=== PATIENT | female | born 1935 | race Caucasian/White ===

== ENCOUNTER 2017-10-14 16:53 | Inpatient (IN) | payer MEDICARE, BC, SELFPAY ==
--- NOTE | 2017-10-14 17:39 | XR_ITS ---
XR chest portable HISTORY: ITS.REASON: Malignant HBP ORDERING PHYSICIAN: French Blackwell MD PATIENT AGE: 81 years COMPARISON: 12/17/2016 FINDINGS: Mild cardiomegaly without failure.. The lungs are clear without infiltrates, suspicious nodules, or pleural effusions. No acute bony abnormalities. IMPRESSION: Mild cardiomegaly otherwise negative
[2017-10-14 17:43] VITALS: PULSE 70
--- NOTE | 2017-10-14 18:00 | P.PN_ITS ---
Internal Medicine - PN: Subj *Date: 10/14/17 *Time: 18:10 Interval history: Ms. Iverson is an 81 yo WF with a hx of HBP, HLP and paroxysmal AF who is followed regularly by Dr. Walter. For past week, BP has been uncontrolled with systolic >200 and diastolic>100. SHe has been seen in the office on 2 occasions this week with adjustment in her medication and returned today after an episode of light headedness, presyncope and tingling in her face this morning. BP remains high. SHe is being admitted for treatment of malignant HBP with IV Nipride. Exam - Constitutional no acute distress - *Routine HEENT Exam Head: Present: normocephalic, atraumatic Eye: Present: EOMI, PERRL, normal accommodation ENT: Present: mucous membranes moist, oropharynx clear - *Routine Neck Exam Present: supple. Absent: carotid bruit - *Routine Respiratory Exam Present: CTA bilaterally - *Routine Cardiovascular Exam Present: RRR - *Routine Extremities Exam Absent: edema Assessment and Plan (1) Malignant hypertension Current visit: Yes Status: Acute Category: Medical Code(s): I10 - Essential (primary) hypertension (2) Hyperlipidemia Current visit: Yes Status: Acute Category: Medical Code(s): E78.5 - Hyperlipidemia, unspecified (3) Paroxysmal atrial fibrillation Current visit: Yes Status: Acute Category: Medical Code(s): I48.0 - Paroxysmal atrial fibrillation (4) Hyponatremia Current visit: Yes Status: Acute Category: Medical Code(s): E87.1 - Hypo- osmolality and hyponatremia - Assessment and plan all Dx Assessment and Plan for all problems:: Admit to Step Down unit to start Nipride drip. Check labs, CXR, EKG, Carotid US , renal artery duplex
[2017-10-14 18:01] LABS: Basophils % 0.4 % (0.1-2.0); Eosinophils # 0.5 K/mm3 (0.0-0.4); Eosinophils % 7.2 % (0.1-12.0); Hemoglobin 12.1 g/dL (12.2-16.2); Lymphocytes # 1.4 K/mm3 (0.7-4.5); Lymphocytes % 19.7 K/mm3 (10-50); Mean Corpuscular HGB Conc 33.6 g/dL (31.8-35.4); Mean Corpuscular Hemoglobin 29.2 pg (27.0-31.2); Monocytes # 0.7 K/mm3 (0.1-1.0); Neutrophils # 4.3 K/mm3 (1.8-7.8); Neutrophils % 62.8 % (37.0-80.0); Platelet Count 347 K/mm3 (142-424); Red Blood Count 4.13 M/mm3 (4.20-5.40); Red Cell Distribution Width 12.2 % (11.5-17.5); White Blood Count 6.9 K/mm3 (4.8-10.8)
[2017-10-14 18:02] VITALS: BP 220/91; PULSE 63; RESP 20; TEMP 36.8; O2SAT 96; BMI 30.3
[2017-10-14 18:16] LABS: Alanine Aminotransferase 28 U/L (12-78); Albumin Level 3.8 gm/dL (3.4-5.0); Alkaline Phosphatase 77 U/L (46-116); Anion Gap 11.3 mEq/L (5-15); Bilirubin,Total 0.3 mg/dL (0.2-1.0); Blood Urea Nitrogen 26 mg/dL (7-18); Calcium 8.8 mg/dL (8.5-10.1); Carbon Dioxide 28 mmol/L (21.0-32.0); Chloride 94 mmol/L (98-107); Creatinine Clearance Estimated 47 mL/min (0-300); Creatinine,Serum 1.09 mg/dL (0.55-1.02); Estimated Glomerular Filt Rate 48 ml/min (>60); GFR (African American) 58 ML/MIN (>60); Globulin 3.9 gm/dl (1.3-3.2); Glucose 108 mg/dL (74-106); Magnesium 1.9 mg/dL (1.4-2.2); Phosphorous 3.6 mg/dL (2.4-4.9); Sodium 129 mmol/L (136-145); Total Protein,Serum 7.7 gm/dL (6.4-8.2)
[2017-10-14 18:18] LABS: Aspartate Amino Transferase 19 U/L (15-37); Potassium 4.3 mmoL/L (3.5-5.1)
[2017-10-14 19:00] VITALS: BP 154/76; PULSE 60; RESP 16; O2SAT 94
--- NOTE | 2017-10-14 19:12 | PC.NURSE ---
nitropresside drip ordered per dr. garcía. order faxed to [facility] per lola peter. pt weight 73.8 kg. med dosage verified with gavin over the phone and again at bedside with lola peter. 50 mg of nitropresside mixed with 250 ml dextrose. titrated to keep systolic bp below 150 and diastolic below 90. pt currently going at 0.3 mcg/kg/min or 6.6 ml/hr at this time. bp 156/84 at this time. report given to sylvia peter. will scan med when available on
[2017-10-14 20:00] VITALS: BP 140/58; PULSE 56; PULSE 60; TEMP 36.7; O2SAT 96; O2SAT 98
[2017-10-14 21:32] LABS: Microscopic, Urine URINE MICROSCOPIC (MICROSCOPIC)
[2017-10-14 21:33] LABS: Appearance,Urine CLEAR (Clear); Bilirubin,Urine Negative (Negative); Blood, Urine Negative (Negative); Color,Urine YELLOW (Yellow); Glucose,Urine (UA) Negative (Negative); Ketones,Urine Negative (Negative); Leukocyte Esterase,Urine TRACE (Negative); Nitrate,Urine Negative (Negative); Protein,Urine Negative (Negative); Urobilinogen,Urine 0.2 EU/dl (0.2)
[2017-10-14 21:42] LABS: Bacteria,Urine Trace /lpf
[2017-10-14 22:00] VITALS: BP 109/50; PULSE 51; O2SAT 94
[2017-10-14 23:56] VITALS: TEMP 36.2
[2017-10-15] VITALS (11 sets, daily range): BP systolic 108–181; BP diastolic 44–72; PULSE 48–56; RESP 16–20; TEMP 36.4–36.9; O2SAT 91–98; BMI 31.0
--- NOTE | 2017-10-15 03:59 | PC.NURSE ---
PT IS A&OX3. SHE HAS BEEN USING THE CALL LIGHT TO CALL FOR ASSISTANCE. SHE RECEIVED A PRN MEDICATION FOR SLEPT PER HER REQUEST. VSS. NSR ON TELEMETRY. BRADYCARDIA WHILE SLEEPING. DENIES PAIN. DENIES SOA. SHE HAS BEEN TRANSFERRING TO THE [facility] WITH ASSIST X1.
--- NOTE | 2017-10-15 06:50 | CI_ITS ---
Cerebrovascular Exam IMPRESSIONS 1. The bilateral vertebral arteries are patent with normal antegrade flow. 2. Study suggests less than 20% stenosis involving the right internal carotid artery and the left internal carotid artery. No change from the study of 16-May-2012. History: Risk factors: Hypertension. Carotid duplex study. Complete study and Doppler flow study including spectral analysis, color and pastor scale imaging. Height: Height: 154.9cm. Height: 61in. Weight: Weight: 74.4kg. Weight: 163.7lb. Body mass index: BMI: 31kg/m^2. Body surface area: BSA: 1.82m^2. Location: Bedside. Patient status: Inpatient. Tables: Arterial flow: + +--------+--------+ Location V sys V ed + +--------+--------+ Right CCA - proximal 50.3cm/s 12.6cm/s + +--------+--------+ Right CCA - distal 73.1cm/s 14.1cm/s + +--------+--------+ Right ECA 147cm/s -------- + +--------+--------+ Right ICA - proximal 57.4cm/s 14.9cm/s + +--------+--------+ Right ICA - mid 144cm/s 26.7cm/s + +--------+--------+ Right ICA - distal 124cm/s 23.6cm/s + +--------+--------+ Right vertebral 46.4cm/s -------- + +--------+--------+ Left CCA - proximal 70.7cm/s 14.9cm/s + +--------+--------+ Left CCA - distal 72.3cm/s 14.9cm/s + +--------+--------+ Left ECA 123cm/s -------- + +--------+--------+ Left ICA - proximal 85.6cm/s 11.8cm/s + +--------+--------+ Left ICA - mid 70.7cm/s 13.4cm/s + +--------+--------+ Left ICA - distal 91.9cm/s 17.3cm/s + +--------+--------+ Left vertebral 33.8cm/s -------- + +--------+--------+ Velocity ratios: + + + + + + Right, V sys Right, V ed Left, V sys Left, V ed + + + + + + Max ICA/dist CCA 1.97 1.89 1.27 1.16 + + + + + + (Report amended ) Electronically signed by: Silverio Bruner [id number]
--- NOTE | 2017-10-15 07:16 | PC.NURSE ---
REPORT GIVEN TO Clayton SIMS W/C
--- NOTE | 2017-10-15 07:51 | HMH.HP ---
*Admission Date: 10/14/17 <Kalie Conrad 10/15/17 08:24> *Chief complaint: HTN <Kalie Conrad 10/15/17 08:24> *History of present illness: Ms. Iverson is an 81 yo WF with a hx of HBP, HLP and paroxysmal AF who is followed regularly by Dr. Walter. For the past week, her BP has been uncontrolled with systolic >200 and diastolic>100. She has been seen in the office on 2 occasions this week with adjustment in her medication and returned yesterday after an episode of light headedness, presyncope and tingling in her face. Her BP remained high. She was admitted for treatment of malignant HBP with IV Nipride. <Kalie Conrad 10/15/17 08:24> [facility] History Medical History: Reports:: Atrial Fibrillation, Hyperlipidemia, Hypertension Denies:: Cancer, Coronary Artery Disease, Cerebrovascular Accident, Diabetes Mellitus Type 1, Diabetes Mellitus Type 2, MRSA <Kalie Conrad 10/15/17 08:24> Other Medical History: Reports: Anemia, Arthritis, Sinus Problems <Kalie Conrad 10/15/17 08:24> Other Surgeries: Yes: Cardiac Catheterization, Colonoscopy, EGD <Kalie Conrad 10/15/17 08:24> Amputation: No <Kalie Conrad 10/15/17 08:24> Comment: Cholecystectomy <Kalie Conrad 10/15/17 08:24> - *Social History Educational Level: Attended High School <Kalie Conrad 10/15/17 08:24> Smoking Status: Former smoker <Kalie Conrad 10/15/17 08:24> Alcohol Intake: current <Kalie Conrad 10/15/17 08:24> Alcohol Intake Frequency:: a few times a week <Kalie Conrad 10/15/17 08:24> Occupational Status: retired <Kalie Conrad 10/15/17 08:24> Household Members: none <Kalie Conrad 10/15/17 08:24> - Psychiatric History Expresses thoughts of harming self/others: None <Kalie Conrad 10/15/17 08:24> Suicide Plan Description: No Plan <Kalie Conrad - 10/15/17 08:24> *Family Hx:: Heart Attack, Hyperlipidemia <Kalie Conrad 10/15/17 08:24> Review of Systems - Constitutional Reports weakness, Denies chills, Denies fatigue, Denies fever(s) <AnamariaKalie 10/15/17 08:24> - Eyes Denies blurry vision, Denies double vision <CelsoconchitaKalie 10/15/17 08:24> - ENT Denies nasal congestion, Denies sore throat <CelsoconchitaKalie 10/15/17 08:24> - *Cardiovascular Denies chest pain, Denies irregular heart rhythm, Denies leg swelling <CelsoconchitaKalie 10/15/17 08:24> - *Respiratory Denies chest congestion, Denies shortness of breath <CelsoconchitaKalie 10/15/17 08:24> - *Gastrointestinal Denies abdominal pain, Denies nausea, Denies vomiting <CelsoconchitaKalie 10/15/17 08:24> - *Genitourinary Denies difficulty urinating, Denies painful urination <CelsoconchitaKalie 10/15/17 08:24> - *Musculoskeletal Denies joint pain, Denies body aches <CelsoconchitaKalie 10/15/17 08:24> - *Neurologic Reports headache(s), Reports dizziness (yesterday, has resolved today), Reports weakness <CelsoconchitaKalie 10/15/17 08:24> Meds Home Medications Medication Instructions Recorded Confirmed Type Atorvastatin Calcium [Atorvastatin 10 mg PO DAILY 10/14/17 10/14/17 History 10mg Tab] Calcium Carbonate/Vitamin D3 1 each PO DAILY 10/14/17 10/14/17 History [Calcium 600 + Vit D 400 Softgl] Carvedilol [Carvedilol 12.5mg Tab] 12.5 mg PO BID 10/14/17 10/14/17 History Cefdinir [Omnicef 300mg Capsule] 300 mg PO BID 10/14/17 10/14/17 History Cholecalciferol (Vitamin D3) 1,000 unit PO DAILY 10/14/17 10/14/17 History [Vitamin D3 1,000 Unit Cap] Flecainide Acetate 100 mg PO BID 10/14/17 10/14/17 History Lansoprazole 30 mg PO DAILY 10/14/17 10/14/17 History Lisinopril [Lisinopril 20mg Tab] 20 mg PO BID 10/14/17 10/14/17 History Multivitamin [Multivitamins] 1 each PO DAILY 10/14/17 10/14/17 History [place]-3S/Dha/Epa/Fish Oil [Fish 1 each PO BID 10/14/17 10/14/17 History Oil 1,200 mg Softgel] Rivaroxaban [Xarelto] 20 mg PO DAILY 10/14/17 10/14/17 History cloNIDine HCl [cloNIDine 0.2mg 0.2 mg PO BID 10/14/17 10/14/17 History Tablet] hydrO
--- NOTE | 2017-10-15 08:05 | P.HP_ITS ---
*Admission Date: 10/14/17 <Kalie Conrad 10/15/17 08:24> *Chief complaint: HTN <Kalie Conrad 10/15/17 08:24> *History of present illness: Ms. Iverson is an 81 yo WF with a hx of HBP, HLP and paroxysmal AF who is followed regularly by Dr. Walter. For the past week, her BP has been uncontrolled with systolic >200 and diastolic>100. She has been seen in the office on 2 occasions this week with adjustment in her medication and returned yesterday after an episode of light headedness, presyncope and tingling in her face. Her BP remained high. She was admitted for treatment of malignant HBP with IV Nipride. <Kalie Conrad 10/15/17 08:24> [facility] History Medical History: Reports:: Atrial Fibrillation, Hyperlipidemia, Hypertension Denies:: Cancer, Coronary Artery Disease, Cerebrovascular Accident, Diabetes Mellitus Type 1, Diabetes Mellitus Type 2, MRSA <Kalie Conrad 10/15/17 08: 24> Other Medical History: Reports: Anemia, Arthritis, Sinus Problems <Kalie Conrad 10/15/17 08:24> Other Surgeries: Yes: Cardiac Catheterization, Colonoscopy, EGD <Kalie Conrad 10/15/17 08:24> Amputation: No <Kalie Conrad 10/15/17 08:24> Comment: Cholecystectomy <Kalie Conrad 10/15/17 08:24> - *Social History Educational Level: Attended High School <Kalie Conrad 10/15/17 08:24> Smoking Status: Former smoker <Kalie Conrad 10/15/17 08:24> Alcohol Intake: current <Kalie Conrad 10/15/17 08:24> Alcohol Intake Frequency:: a few times a week <Kalie Conrad 10/15/17 08:24> Occupational Status: retired <Kalie Conrad 10/15/17 08:24> Household Members: none <Kalie Conrad 10/15/17 08:24> - Psychiatric History Expresses thoughts of harming self/others: None <Kalie Conrad 10/15/17 08: 24> Suicide Plan Description: No Plan <Kalie Conrad - 10/15/17 08:24> *Family Hx:: Heart Attack, Hyperlipidemia <Kalie Conrad 10/15/17 08:24> Review of Systems - Constitutional Reports weakness, Denies chills, Denies fatigue, Denies fever(s) <Anamaria Kalie 10/15/17 08:24> - Eyes Denies blurry vision, Denies double vision <CelsoconchitaKalie 10/15/17 08:24> - ENT Denies nasal congestion, Denies sore throat <CelsoconchitaKalie 10/15/17 08:24> - *Cardiovascular Denies chest pain, Denies irregular heart rhythm, Denies leg swelling <Celsoconchita Kalie 10/15/17 08:24> - *Respiratory Denies chest congestion, Denies shortness of breath <CelsoconchitaKalie 10/15/17 08:24> - *Gastrointestinal Denies abdominal pain, Denies nausea, Denies vomiting <CelsoconchitaKalie 08:24> - *Genitourinary Denies difficulty urinating, Denies painful urination <CelsoconchitaKalie 08:24> - *Musculoskeletal Denies joint pain, Denies body aches <CelsoconchitaKalie 10/15/17 08:24> - *Neurologic Reports headache(s), Reports dizziness (yesterday, has resolved today), Reports weakness <CelsoconchitaKalie 10/15/17 08:24> Meds Home Medications Medication Instructions Recorded Confirmed Type Atorvastatin Calcium [Atorvastatin 10 mg PO DAILY 10/14/17 10/14/17 History 10mg Tab] Calcium Carbonate/Vitamin D3 1 each PO DAILY 10/14/17 10/14/17 History [Calcium 600 + Vit D 400 Softgl] Carvedilol [Carvedilol 12.5mg Tab] 12.5 mg PO BID 10/14/17 10/14/17 History Cefdinir [Omnicef 300mg Capsule] 300 mg PO BID 10/14/17 10/14/17 History Cholecalciferol (Vitamin D3) 1,000 unit PO DAILY 10/14/17 10/14/17 History [Vitamin D3 1,000 Unit Cap] Flecainide Acetate 100 mg PO BID 10/14/17 10/14/17 History Lansoprazole 30 mg PO DAILY
--- NOTE | 2017-10-15 08:54 | HMH.PHAVTE ---
[facility] Pharmacy VTE Monitoring - Patient Demographics Admission date: 10/14/17 Report Date: 10/15/17 Time: 08:54 Allergies/Adverse Reactions: Patient Allergies Penicillins Allergy (Intermediate, Verified 10/14/17 18:18) I-RASH codeine Allergy (Mild, Verified 10/14/17 18:18) NA-NAUSEA/VOMITING simvastatin Adverse Reaction (Verified 10/15/17 08:11) Joint Pain Height: 1.55 m Weight: 74.644 kg Patient Problems: Current Active Problems Malignant hypertension (Acute) Hyperlipidemia (Acute) Paroxysmal atrial fibrillation (Acute) Hyponatremia (Acute) - VTE Risk Labs: VTE Related Lab Results Hgb 12.1 g/dL (12.2-16.2) L 10/14/17 17:36 Hct 36.0 % (37.0-47.0) L 10/14/17 17:36 Plt Count 347 K/mm3 (142-424) 10/14/17 17:36 BUN 26 mg/dL (7-18) H 10/14/17 17:36 Creatinine 1.09 mg/dL (0.55-1.02) H 10/14/17 17:36 Estimated Creat Clear 47 mL/min (0-300) 10/14/17 17:36 Was VTE Risk Assessment Performed: Yes VTE Score: 2 VTE Risk Level: Very Low Risk - Prophylaxis VTE Prophylaxis Ordered?: Yes Types of VTE Prophylaxis: TEDS Knee High Location of Applied Device: Bilateral Lower Extremeties Pharmacologic Type: Other (XARELTO) - VTE Diagnosis Confirmed Treatment or plan recommended: Continue Current Treatment
--- NOTE | 2017-10-15 19:28 | PC.NURSE ---
clarified with primary rn sho james, phone conversation with dr loredo office at 1030 this am, pt was off of drip at 0830. communication order entered
[2017-10-16] VITALS (8 sets, daily range): BP systolic 95–156; BP diastolic 35–63; PULSE 45–58; RESP 18–20; TEMP 36.2–36.8; O2SAT 96–100
[2017-10-16 06:10] LABS: Basophils % 0.5 % (0.1-2.0); Eosinophils # 0.8 K/mm3 (0.0-0.4); Eosinophils % 13.1 % (0.1-12.0); Hematocrit 35.9 % (37.0-47.0); Hemoglobin 11.9 g/dL (12.2-16.2); Lymphocytes # 1.3 K/mm3 (0.7-4.5); Lymphocytes % 21.2 K/mm3 (10-50); Mean Corpuscular HGB Conc 33.2 g/dL (31.8-35.4); Mean Corpuscular Hemoglobin 28.7 pg (27.0-31.2); Mean Corpuscular Volume 86.5 fl (81-99); Mean Platelet Volume 6.6 fl (7.4-10.4); Monocytes # 0.6 K/mm3 (0.1-1.0); Monocytes % 10.3 % (1.7-9.3); Neutrophils # 3.2 K/mm3 (1.8-7.8); Neutrophils % 54.9 % (37.0-80.0); Platelet Count 308 K/mm3 (142-424); Red Blood Count 4.14 M/mm3 (4.20-5.40); Red Cell Distribution Width 12.1 % (11.5-17.5); White Blood Count 5.9 K/mm3 (4.8-10.8)
[2017-10-16 06:15] LABS: Alanine Aminotransferase 26 U/L (12-78); Albumin Level 3.4 gm/dL (3.4-5.0); Aspartate Amino Transferase 14 U/L (15-37); Bilirubin,Total 0.4 mg/dL (0.2-1.0); Blood Urea Nitrogen 17 mg/dL (7-18); Calcium 8.7 mg/dL (8.5-10.1); Carbon Dioxide 30 mmol/L (21.0-32.0); Chloride 96 mmol/L (98-107); Creatinine Clearance Estimated 53 mL/min (0-300); Creatinine,Serum 0.91 mg/dL (0.55-1.02); Estimated Glomerular Filt Rate 59 ml/min (>60); GFR (African American) 72 ML/MIN (>60); Glucose 118 mg/dL (74-106); Sodium 130 mmol/L (136-145); Total Protein,Serum 6.9 gm/dL (6.4-8.2)
[2017-10-16 06:16] LABS: Alkaline Phosphatase 70 U/L (46-116); Globulin 3.5 gm/dl (1.3-3.2)
--- NOTE | 2017-10-16 08:49 | HMH.ACPN2 ---
Internal Medicine - PN: Subj *Date: 10/16/17 *Time: 08:49 Interval history: Was up in room most of the day yesterday. Noted with elevated BP yesterday afternoon and meds adjusted. Did not sleep as well. Up to bathroom. Had dull headache. No complaints this AM. Exam Vital signs and Labs for Last 24 Hours: Temp Pulse Resp BP Pulse Ox 98.0 F 54 L 20 149/61 97 10/16/17 07:34 10/16/17 07:34 10/16/17 07:34 10/16/17 07:34 10/16/17 07:34 Laboratory Results - last 24 hr 10/16/17 05:40: WBC 5.9, RBC 4.14 L, Hgb 11.9 L, Hct 35.9 L, MCV 86.5, MCH 28.7, MCHC 33.2, RDW 12.1, Plt Count 308, MPV 6.6 L, Neut % (Auto) 54.9, Lymph % (Auto) 21.2, Andrews % (Auto) 10.3 H, Eos % (Auto) 13.1 H, Baso % (Auto) 0.5, Neut # (Auto) 3.2, Lymph # (Auto) 1.3, Andrews # (Auto) 0.6, Eos # (Auto) 0.8 H, Baso # (Auto) 0.0 10/16/17 05:40: Sodium 130 L, Potassium 4.0, Chloride 96 L, Carbon Dioxide 30, Anion Gap 8.0, BUN 17 D, Creatinine 0.91, Estimated Creat Clear 53, Estimated GFR 59, Est GFR ( Amer) 72 D, Glucose 118 H, Calcium 8.7, Total Bilirubin 0.4, AST 14 L D, ALT 26, Alkaline Phosphatase 70, Total Protein 6.9, Albumin 3.4, Globulin 3.5 H, Albumin/Globulin Ratio 1.0 L I & O for Last 24 hours: Intake & Output 10/13/17 10/14/17 10/15/17 10/16/17 11:59 11:59 11:59 11:59 Intake Total 514 / 514 240 / 240 Output Total 750 / 750 Balance -236 / -236 240 / 240 Weight 164 lb 9 oz 164 lb 8.989 oz - Constitutional no acute distress - *Routine Respiratory Exam Present: CTA bilaterally - *Routine Cardiovascular Exam Present: RRR - *Routine Extremities Exam Absent: edema Assessment and Plan (1) Malignant hypertension Current visit: Yes Status: Acute Category: Medical Code(s): I10 - Essential (primary) hypertension (2) Hyperlipidemia Current visit: Yes Status: Acute Category: Medical Code(s): E78.5 - Hyperlipidemia, unspecified (3) Paroxysmal atrial fibrillation Current visit: Yes Status: Acute Category: Medical Code(s): I48.0 - Paroxysmal atrial fibrillation (4) Hyponatremia Current visit: Yes Status: Acute Category: Medical Code(s): E87.1 - Hypo-osmolality and hyponatremia (5) Hypothyroidism Current visit: Yes Status: Acute Category: Medical Code(s): E03.9 - Hypothyroidism, unspecified - Assessment and plan all Dx Assessment and Plan for all problems:: BP improved over night. Will monitor today and see how she does with activity today.
--- NOTE | 2017-10-16 08:52 | P.PN_ITS ---
Internal Medicine - PN: Subj *Date: 10/16/17 *Time: 08:49 Interval history: Was up in room most of the day yesterday. Noted with elevated BP yesterday afternoon and meds adjusted. Did not sleep as well. Up to bathroom. Had dull headache. No complaints this AM. Exam Vital signs and Labs for Last 24 Hours: Temp Pulse Resp BP Pulse Ox 98.0 F 54 L 20 149/61 97 10/16/17 07:34 10/16/17 07:34 10/16/17 07:34 10/16/17 07:34 10/16/17 07:34 Laboratory Results - last 24 hr 10/16/17 05:40: WBC 5.9, RBC 4.14 L, Hgb 11.9 L, Hct 35.9 L, MCV 86.5, MCH 28.7 , MCHC 33.2, RDW 12.1, Plt Count 308, MPV 6.6 L, Neut % (Auto) 54.9, Lymph % ( Auto) 21.2, [place] % (Auto) 10.3 H, Eos % (Auto) 13.1 H, Baso % (Auto) 0.5, Neut # (Auto) 3.2, Lymph # (Auto) 1.3, [place] # (Auto) 0.6, Eos # (Auto) 0.8 H, Baso # (Auto) 0.0 10/16/17 05:40: Sodium 130 L, Potassium 4.0, Chloride 96 L, Carbon Dioxide 30, Anion Gap 8.0, BUN 17 D, Creatinine 0.91, Estimated Creat Clear 53, Estimated GFR 59, Est GFR ( Amer) 72 D, Glucose 118 H, Calcium 8.7, Total Bilirubin 0.4, AST 14 L D, ALT 26, Alkaline Phosphatase 70, Total Protein 6.9, Albumin 3.4, Globulin 3.5 H, Albumin/Globulin Ratio 1.0 L I & O for Last 24 hours: Intake & Output 10/13/17 10/14/17 10/15/17 10/16/17 11:59 11:59 11:59 11:59 Intake Total 514 / 514 240 / 240 Output Total 750 / 750 Balance -236 / -236 240 / 240 Weight 164 lb 9 oz 164 lb 8.989 oz - Constitutional no acute distress - *Routine Respiratory Exam Present: CTA bilaterally - *Routine Cardiovascular Exam Present: RRR - *Routine Extremities Exam Absent: edema Assessment and Plan (1) Malignant hypertension Current visit: Yes Status: Acute Category: Medical Code(s): I10 - Essential (primary) hypertension (2) Hyperlipidemia Current visit: Yes Status: Acute Category: Medical Code(s): E78.5 - Hyperlipidemia, unspecified (3) Paroxysmal atrial fibrillation Current visit: Yes Status: Acute Category: Medical Code(s): I48.0 - Paroxysmal atrial fibrillation (4) Hyponatremia Current visit: Yes Status: Acute Category: Medical Code(s): E87.1 - Hypo- osmolality and hyponatremia (5) Hypothyroidism Current visit: Yes Status: Acute Category: Medical Code(s): E03.9 - Hypothyroidism, unspecified - Assessment and plan all Dx Assessment and Plan for all problems:: BP improved over night. Will monitor today and see how she does with activity today.
[2017-10-17] VITALS (11 sets, daily range): BP systolic 98–198; BP diastolic 44–80; PULSE 40–60; RESP 18–20; TEMP 36.4–37.1; O2SAT 97–99
--- NOTE | 2017-10-17 04:34 | PC.NURSE ---
PT WALKED HALLWAY ON EVENING SHIFT WITH DAUGHTER AT SIDE. STEADY GAIT NOTED. PT RECEIVED SLEEP AID PER REQUEST. PT HAS SLEPT. PRIOR TO BEDTIME PT STATED SHE FELT ODD WHEN GETTING UP TO BATHROOM. B/P AND HR CHECKED AT THAT TIME WITH NO SIGNIFICANT CHANGE NOTED. PT HAS BEEN SINUS RIGOBERTO ON TELEMETRY.
--- NOTE | 2017-10-17 05:38 | PC.NURSE ---
DR. AQUINO NOTIFIED OF B/P 198/80 RIGHT ARM GABY AND 190/80 LEFT ARM GABY. ORDERS TO GIVE 0900 CLONIDINE AND HYDRALAZINE EARLY(NOW). WILL CONTINUE TO MONITOR.
--- NOTE | 2017-10-17 08:51 | P.PN_ITS ---
Internal Medicine - PN: Subj *Date: 10/17/17 *Time: 11:35 Interval history: Walked in [place] yesterday and did well. Did not sleep well and felt anxious through the night. BP was elevated all night. Noted with bradycardia. No chest pain or dizziness. Exam Vital signs and Labs for Last 24 Hours: Temp Pulse Resp BP Pulse Ox 98.2 F 50 L 20 159/76 97 10/17/17 07:56 10/17/17 07:56 10/17/17 07:56 10/17/17 07:56 10/17/17 07:56 I & O for Last 24 hours: Intake & Output 10/14/17 10/15/17 10/16/17 10/17/17 11:59 11:59 11:59 11:59 Intake Total 514 / 514 240 / 240 1440 / 1440 Output Total 750 / 750 900 / 900 Balance -236 / -236 240 / 240 540 / 540 Weight 164 lb 9 oz 164 lb 8.989 oz - Constitutional no acute distress Comments: alert and oriented - *Routine Respiratory Exam Present: CTA bilaterally - *Routine Cardiovascular Exam Present: RRR - *Routine Extremities Exam Absent: edema Assessment and Plan (1) Malignant hypertension Current visit: Yes Status: Acute Category: Medical Code(s): I10 - Essential (primary) hypertension (2) Hyperlipidemia Current visit: Yes Status: Acute Category: Medical Code(s): E78.5 - Hyperlipidemia, unspecified (3) Paroxysmal atrial fibrillation Current visit: Yes Status: Acute Category: Medical Code(s): I48.0 - Paroxysmal atrial fibrillation (4) Hyponatremia Current visit: Yes Status: Acute Category: Medical Code(s): E87.1 - Hypo- osmolality and hyponatremia (5) Hypothyroidism Current visit: Yes Status: Acute Category: Medical Code(s): E03.9 - Hypothyroidism, unspecified (6) Bradycardia Current visit: Yes Status: Acute Category: Medical Code(s): R00.1 - Bradycardia, unspecified - Assessment and plan all Dx Assessment and Plan for all problems:: Decreased Coreg and add Norvasc
--- NOTE | 2017-10-17 13:11 | PC.NURSE ---
PATIENT 1300 DOSE OF CLONIDINE AND HYDRALAZINE WERE HELD FOR SYSTOLIC BP <100
--- NOTE | 2017-10-17 18:04 | PC.NURSE ---
PATIENT HAS BEEN RESTING IN THE CHAIR T/O SHIFT. SHE HAS HAD FAMILY AT BEDSIDE ENTIRE SHIFT. PATIENT HAS BEEN WALKING AROUND THE HALLS SEVERAL TIMES T/O DAY INDEPENDENTLY. PATIENTS BP DROPPED AT LUNCH TIME TO 98 SYSTOLIC. I HELD HER CLONIDINE AND HYDRALAZINE WHICH SHE WILL GET AGAIN AROUND 1999. PATIENT HAS 2 IVS WHICH WERE LEFT IN TODAY THEY ARE PATENT AND SHOW NO SIGNS OF INFILTRATE. LUNGS ARE DIMINISHED T/O. DENIES PAIN T/O SHIFT. A&OX3. CALL LIGHT WITHIN REACH WILL CONTINUE TO MONITOR
--- NOTE | 2017-10-17 19:13 | PC.NURSE ---
REPORT GIVEN TO NERY SHARP RN
[2017-10-18] VITALS (17 sets, daily range): BP systolic 125–242; BP diastolic 57–100; PULSE 50–70; RESP 16–20; TEMP 36.4–36.8; O2SAT 97–99
--- NOTE | 2017-10-18 01:11 | PC.NURSE ---
AT [address] AQUINO B/P RA 194/83, AND 200/78 LA. REPORTED B/P READINGS THROUGHOUT DAY AND ALL B/P MEDS GIVEN AT 2030 TONIGHT. NO NEW ORDERS AT THIS TIME. WILL CONTINUE TO MONITOR.
--- NOTE | 2017-10-18 04:49 | PC.NURSE ---
PT HAS SLEPT INTERMITTENTLY TONIGHT. DTR AT BEDSIDE. B/P ELEVATED AT MIDNGHT AND MD NOTIFED. NO NEW ORDERS. PT WITHOUT COMPLAINTS AT THIS TIME.
--- NOTE | 2017-10-18 07:47 | PC.NURSE ---
Report received from Марина Dubois RN
--- NOTE | 2017-10-18 08:07 | HMH.ACPN2 ---
<Kayla Gama - Last Filed: 10/18/17 08:07> Internal Medicine - PN: Subj *Date: 10/18/17 *Time: 08:07 Interval history: Patient states she slept better last night. Denies chest pain, shortness of breath, dizziness and heart palpitations. She has been ambulating without difficulty. She is eating as usual without problems. Blood pressure has fluctuated and medicine actually had to be held at noon yesterday (98/44). Systolic blood pressure during the night was 212/89, 192/73 Exam Vital signs and Labs for Last 24 Hours: Temp Pulse Resp BP Pulse Ox 97.8 F 63 18 192/73 98 10/18/17 04:00 10/18/17 04:00 10/18/17 04:00 10/18/17 05:43 10/18/17 04:00 I & O for Last 24 hours: Intake & Output 10/15/17 10/16/17 10/17/17 10/18/17 11:59 11:59 11:59 11:59 Intake Total 514 / 514 240 / 240 1440 / 1440 10 / 10 Output Total 750 / 750 900 / 900 1200 / 1200 Balance -236 / -236 240 / 240 540 / 540 -1190 / -1190 Weight 164 lb 9 oz 164 lb 8.989 oz - Constitutional no acute distress - *Routine Respiratory Exam Comments: few fine crackles in the left base. - *Routine Cardiovascular Exam Present: RRR Comments: Monitor showing sinus bradycardia in the 50s with occasional PAC - *Routine Abdominal Exam Present: soft, normoactive bowel sounds. Absent: tenderness - *Routine Extremities Exam Absent: edema, calf tenderness - *Routine Neurological Exam Present: alert, oriented X3 Assessment and Plan (1) Malignant hypertension Current visit: Yes Status: Acute Category: Medical Code(s): I10 - Essential (primary) hypertension (2) Hyperlipidemia Current visit: Yes Status: Acute Category: Medical Code(s): E78.5 - Hyperlipidemia, unspecified (3) Paroxysmal atrial fibrillation Current visit: Yes Status: Acute Category: Medical Code(s): I48.0 - Paroxysmal atrial fibrillation (4) Hyponatremia Current visit: Yes Status: Acute Category: Medical Code(s): E87.1 - Hypo-osmolality and hyponatremia (5) Hypothyroidism Current visit: Yes Status: Acute Category: Medical Code(s): E03.9 - Hypothyroidism, unspecified (6) Bradycardia Current visit: Yes Status: Acute Category: Medical Code(s): R00.1 - Bradycardia, unspecified - Assessment and plan all Dx Assessment and Plan for all problems:: As per Dr. Blackwell <French Blackwell - Last Filed: 10/19/17 08:56> Internal Medicine - PN: Subj *Date: 10/19/17 *Time: 08:56 Exam Vital signs and Labs for Last 24 Hours: Temp Pulse Resp BP Pulse Ox 98.2 F 51 L 20 125/62 98 10/19/17 07:27 10/19/17 07:27 10/19/17 07:27 10/19/17 07:27 10/19/17 07:27 I & O for Last 24 hours: Intake & Output 10/16/17 10/17/17 10/18/17 10/19/17 11:59 11:59 11:59 11:59 Intake Total 240 / 240 1440 / 1440 370 / 370 960 / 960 Output Total 900 / 900 1200 / 1200 2600 / 2600 Balance 240 / 240 540 / 540 -830 / -830 -1640 / -1640 Weight 164 lb 8.989 oz Assessment and Plan (1) Malignant hypertension Current visit: Yes Status: Acute Category: Medical Code(s): I10 - Essential (primary) hypertension (2) Hyperlipidemia Current visit: Yes Status: Acute Category: Medical Code(s): E78.5 - Hyperlipidemia, unspecified (3) Paroxysmal atrial fibrillation Current visit: Yes Status: Acute Category: Medical Code(s): I48.0 - Paroxysmal atrial fibrillation (4) Hyponatremia Current visit: Yes Status: Acute Category: Medical Code(s): E87.1 - Hypo-osmolality and hyponatremia (5) Hypothyroidism Current visit: Yes Status: Acute Category: Medical Code(s): E03.9 - Hypothyroidism, unspecified (6) Bradycardia Current visit: Yes Status: Acute Category: Medical Code(s): R00.1 - Bradycardia, unspecified - Assessment and plan all Dx Assessment and Plan for all problems:: Will continue to adjust medications.
--- NOTE | 2017-10-18 09:10 | CA_ITS ---
PROCEDURE: 2-D M-mode and color Doppler study INDICATIONS FOR THE TEST: Chest pain COPD Heart Murmur+ Tobacco Smokingex Palpitations Fatigue Syncope Edema Hypertension+Diabetes Mellitus Rheumatic Fever SOB AVERY Obesity Hyperlipidemia+ Family History HD Additional History PATIENT INFORMATION HEIGHT:61 WEIGHT: 165 GENDER: Female B/P: 192/73 2-D/M-MODE INTERPRETATION: 2-D MEASUREMENTS OBSERVED VALUES IN CMS Right Ventricular Dimension (RVDd) 2.6 Interventricular Septum (Thickness)(IVsd) 0.8 Left Ventricular Internal Dimensions(LVIDd) 5.2 Left Ventricular Posterior Wall (Thickness)(LVPWd) 0.8 Aortic Root 2.7 Aortic Cusp Separation 2.0 Left Atrial Dimensions (LAD) 4.4 2D 1. Left atrium is mildly enlarged, left ventricle is normal size, there is mild qualitative concentric left ventricular hypertrophy, visually estimated ejection fraction 55% with no obvious regional wall motion abnormality. 2. The right atrium is normal size, right ventricle is mildly enlarged with normal contractility. 3. The aortic valve is minimally thickened and fibrosed. 4. The mitral and tricuspid valve leaflets are minimally thickened. 5. The pulmonic valve is poorly visualized. 6. No significant pericardial effusion noted. DOPPLER INTERROGATION: Doppler interrogation of the aortic, mitral and tricuspid valvular presence of trace aortic, mild mitral and tricuspid regurgitation, tricuspid regurgitant jet velocity is insufficient for calculation of the right ventricular systolic pressure, grade 1 diastolic dysfunction seen with tissue Doppler evidence of raised left atrial pressure. CONCLUSION: 1. Mildly enlarged left atrium, normal left ventricular size, mild qualitative concentric left ventricular hypertrophy, visually estimated ejection fraction of 55% with no obvious regional wall motion abnormality, grade 1 diastolic dysfunction seen with tissue Doppler evidence of raised left atrial pressure. 2. Trace aortic, mild mitral and tricuspid regurgitation 3. No significant pericardial effusion noted.
--- NOTE | 2017-10-18 14:41 | PC.NURSE ---
INTERDISCIPLINARY CARE CONFERENCE COMPLETED WITH PATIENT, NURSING, PHARMACY, DIETARY, AND CASE MANAGEMENT
--- NOTE | 2017-10-18 16:19 | DIET.NUTRFU ---
Pt is trying to follow recommendations of selecting high potassium foods. She is eating baked potatoes. PO intakes avg 75-100%. Orders for daily weights but no weights obtained in past 3 days. Nursing notified. Pt is hard of hearing, dietary notified as well. Pt has not been sleeping well.
--- NOTE | 2017-10-18 17:06 | PC.NURSE ---
Pt A&Ox3 in NAD. Pt's SBP has not peaked over 170's /p 0900 meds. Heart rate continues to be in upper 50's. Lungs CTA and diminished. Heart rate reg. Abd soft, non-tender /c active BS x4 quads. (R) FA saline locked; flushes easily. Pt has ambulated within room with 1 person assist this shift. Pt denies c/o pain or discomfort. Refuses Eb hose to BLE. Will continue to monitor.
--- NOTE | 2017-10-18 19:02 | PC.NURSE ---
Report given to Quinten Lund RN
--- NOTE | 2017-10-18 23:31 | PC.NURSE ---
Addendum entered by Nadege Sarmiento CNA 10/19/17 07:46: NURSE NOTIFIED OF PTS ELEVATED BP NOT TEMP Original Note: nurse notified of pts temp
[2017-10-19] VITALS (12 sets, daily range): BP systolic 113–163; BP diastolic 44–72; PULSE 40–60; RESP 16–20; TEMP 36.4–36.8; O2SAT 96–98
--- NOTE | 2017-10-19 05:55 | PC.NURSE ---
Patient resting in bed with family at bedside. No sign or symptom of distress noted at this time. No complaints voiced. Up ad shahrzad in room Denies any pain or discomfort at this time.
--- NOTE | 2017-10-19 07:38 | PC.NURSE ---
REPORT GIVEN TO Марина CHANG W/C
--- NOTE | 2017-10-19 08:34 | HMH.ACPN2 ---
<Kayla Gama - Last Filed: 10/19/17 08:34> Internal Medicine - PN: Subj *Date: 10/19/17 *Time: 08:34 Interval history: Patient feels better this a.m. She slept better last night. She states blood pressure has been more stable. She is eating better. She has been ambulating without difficulty. She denies chest pain, shortness of breath, and palpitations. Exam Vital signs and Labs for Last 24 Hours: Temp Pulse Resp BP Pulse Ox 98.2 F 51 L 20 125/62 98 10/19/17 07:27 10/19/17 07:27 10/19/17 07:27 10/19/17 07:27 10/19/17 07:27 I & O for Last 24 hours: Intake & Output 10/16/17 10/17/17 10/18/17 10/19/17 11:59 11:59 11:59 11:59 Intake Total 240 / 240 1440 / 1440 370 / 370 960 / 960 Output Total 900 / 900 1200 / 1200 2600 / 2600 Balance 240 / 240 540 / 540 -830 / -830 -1640 / -1640 Weight 164 lb 8.989 oz Radiology Reports for the Last 24 Hours: Echocardiogram 10/18/2017 CONCLUSION: 1. Mildly enlarged left atrium, normal left ventricular size, mild qualitative concentric left ventricular hypertrophy, visually estimated ejection fraction of 55% with no obvious regional wall motion abnormality, grade 1 diastolic dysfunction seen with tissue Doppler evidence of raised left atrial pressure. 2. Trace aortic, mild mitral and tricuspid regurgitation 3. No significant pericardial effusion noted. - Constitutional no acute distress - *Routine Respiratory Exam Present: CTA bilaterally (Anteriorly and posteriorly) - *Routine Cardiovascular Exam Present: RRR (Monitor showing sinus bradycardia) - *Routine Abdominal Exam Present: soft, normoactive bowel sounds. Absent: tenderness, distended - *Routine Extremities Exam Absent: edema, calf tenderness - *Routine Neurological Exam Present: alert, oriented X3 Assessment and Plan (1) Malignant hypertension Current visit: Yes Status: Acute Category: Medical Code(s): I10 - Essential (primary) hypertension (2) Hyperlipidemia Current visit: Yes Status: Acute Category: Medical Code(s): E78.5 - Hyperlipidemia, unspecified (3) Paroxysmal atrial fibrillation Current visit: Yes Status: Acute Category: Medical Code(s): I48.0 - Paroxysmal atrial fibrillation (4) Hyponatremia Current visit: Yes Status: Acute Category: Medical Code(s): E87.1 - Hypo-osmolality and hyponatremia (5) Hypothyroidism Current visit: Yes Status: Acute Category: Medical Code(s): E03.9 - Hypothyroidism, unspecified (6) Bradycardia Current visit: Yes Status: Acute Category: Medical Code(s): R00.1 - Bradycardia, unspecified - Assessment and plan all Dx Assessment and Plan for all problems:: Continue current care. Ambulation with blood pressure monitoring. <French Blackwell - Last Filed: 10/19/17 09:02> Internal Medicine - PN: Subj *Date: 10/19/17 *Time: 08:57 Exam Vital signs and Labs for Last 24 Hours: Temp Pulse Resp BP Pulse Ox 98.2 F 51 L 20 125/62 98 10/19/17 07:27 10/19/17 07:27 10/19/17 07:27 10/19/17 07:27 10/19/17 07:27 I & O for Last 24 hours: Intake & Output 10/16/17 10/17/17 10/18/17 10/19/17 11:59 11:59 11:59 11:59 Intake Total 240 / 240 1440 / 1440 370 / 370 960 / 960 Output Total 900 / 900 1200 / 1200 2600 / 2600 Balance 240 / 240 540 / 540 -830 / -830 -1640 / -1640 Weight 164 lb 8.989 oz Assessment and Plan (1) Malignant hypertension Current visit: Yes Status: Acute Category: Medical Code(s): I10 - Essential (primary) hypertension (2) Hyperlipidemia Current visit: Yes Status: Acute Category: Medical Code(s): E78.5 - Hyperlipidemia, unspecified (3) Paroxysmal atrial fibrillation Current visit: Yes Status: Acute Category: Medical Code(s): I48.0 - Paroxysmal atrial fibrillation (4) Hyponatremia Current visit: Yes Status: Acute Category: Medical Code(s): E87.1 - Hypo-osmolality and hyponatremia (5) Hypot
--- NOTE | 2017-10-19 16:11 | SW/DCPLANNER ---
Spoke with patient regarding discharge plans. Patient stated that she was unsure when she would get to discharge home because she had a dizzy spell this afternoon. Patient stated that before that she was feeling good. I have spoke with patient and patients daughter (Ute) whom both state that they would like to have home health ordered once ready for discharge. Ute has stated that she prefer be with [facility] for home health. Discharge date is unknown at this time for this patient...I will follow up with patient in the AM to assist with any needs/new orders.
--- NOTE | 2017-10-19 17:20 | PC.NURSE ---
Pt has been out of bed to chair most of this shift. Call mcdaniel within reach. BP stable this shift. Pt had an episode of dizziness and upon review of packer fuser noted that pt had a block. Dr Blackwell notified and order received for a cardiology consult with Dr Dasilva. Pt heart rate has been running in the 40's and 50's this shift. No c/o of pain verbalized. Family at bedside this shift. Will continue to monitor.
--- NOTE | 2017-10-19 18:58 | PC.NURSE ---
Report given to Queta Bass RN
[2017-10-20] VITALS (11 sets, daily range): BP systolic 115–235; BP diastolic 54–105; PULSE 40–65; RESP 20; TEMP 36.4–36.9; O2SAT 97–99
--- NOTE | 2017-10-20 03:51 | PC.NURSE ---
Pt has rested well this shift with no complaints of pain or discomfort. Pt b/p has been stable, 2100 dose of carvedilol head r/t HR of 48, pt has been bradycardic this shift with 1st degree HB. Pt has been A&Ox3 this shift, BS active in all 4 qauds. Lung sounds clear t/o auscultation. NO acute distress noted. Will continue to monitor.
--- NOTE | 2017-10-20 07:06 | PC.NURSE ---
REPORT GIVEN TO Denae LUCERO
--- NOTE | 2017-10-20 07:28 | PC.NURSE ---
REPORT GIVEN TO Clayton SIMS W/C
--- NOTE | 2017-10-20 08:14 | HMH.ACPN2 ---
<Kalie Conrad - Last Filed: 10/20/17 08:14> Internal Medicine - PN: Subj *Date: 10/20/17 *Time: 08:14 Interval history: Patient is still having high BP's. Cardiology consult today. Patient denies any pain other than a slight JIMÉNEZ. Has been up to the bathroom. Slept well last night. Exam Vital signs and Labs for Last 24 Hours: Temp Pulse Resp BP Pulse Ox 98.4 F 56 L 20 220/90 97 10/20/17 07:44 10/20/17 07:44 10/20/17 07:44 10/20/17 07:44 10/20/17 07:44 I & O for Last 24 hours: Intake & Output 10/17/17 10/18/17 10/19/17 10/20/17 11:59 11:59 11:59 11:59 Intake Total 1440 / 1440 370 / 370 960 / 960 1200 / 1200 Output Total 900 / 900 1200 / 1200 2600 / 2600 700 / 700 Balance 540 / 540 -830 / -830 -1640 / -1640 500 / 500 Weight 160 lb 4 oz Radiology Reports for the Last 24 Hours: Echo 1. Mildly enlarged left atrium, normal left ventricular size, mild qualitative concentric left ventricular hypertrophy, visually estimated ejection fraction of 55% with no obvious regional wall motion abnormality, grade 1 diastolic dysfunction seen with tissue Doppler evidence of raised left atrial pressure. 2. Trace aortic, mild mitral and tricuspid regurgitation 3. No significant pericardial effusion noted. - Constitutional no acute distress - *Routine Respiratory Exam Present: CTA bilaterally - *Routine Cardiovascular Exam Present: RRR - *Routine Abdominal Exam Present: soft, normoactive bowel sounds. Absent: tenderness - *Routine Extremities Exam Absent: edema Assessment and Plan (1) Malignant hypertension Current visit: Yes Status: Acute Category: Medical Code(s): I10 - Essential (primary) hypertension (2) Hyperlipidemia Current visit: Yes Status: Acute Category: Medical Code(s): E78.5 - Hyperlipidemia, unspecified (3) Paroxysmal atrial fibrillation Current visit: Yes Status: Acute Category: Medical Code(s): I48.0 - Paroxysmal atrial fibrillation (4) Hyponatremia Current visit: Yes Status: Acute Category: Medical Code(s): E87.1 - Hypo-osmolality and hyponatremia (5) Hypothyroidism Current visit: Yes Status: Acute Category: Medical Code(s): E03.9 - Hypothyroidism, unspecified (6) Bradycardia Current visit: Yes Status: Acute Category: Medical Code(s): R00.1 - Bradycardia, unspecified - Assessment and plan all Dx Assessment and Plan for all problems:: Cardiology to see today as BP is still not controlled. <RishiFrench Villafana - Last Filed: 10/20/17 10:03> Internal Medicine - PN: Subj *Date: 10/20/17 *Time: 09:56 Exam Vital signs and Labs for Last 24 Hours: Temp Pulse Resp BP Pulse Ox 98.4 F 56 L 20 220/90 97 10/20/17 07:44 10/20/17 07:44 10/20/17 07:44 10/20/17 07:44 10/20/17 07:44 I & O for Last 24 hours: Intake & Output 10/17/17 10/18/17 10/19/17 10/20/17 11:59 11:59 11:59 11:59 Intake Total 1440 / 1440 370 / 370 960 / 960 1200 / 1200 Output Total 900 / 900 1200 / 1200 2600 / 2600 700 / 700 Balance 540 / 540 -830 / -830 -1640 / -1640 500 / 500 Weight 160 lb 4 oz Assessment and Plan (1) Malignant hypertension Current visit: Yes Status: Acute Category: Medical Code(s): I10 - Essential (primary) hypertension (2) Hyperlipidemia Current visit: Yes Status: Acute Category: Medical Code(s): E78.5 - Hyperlipidemia, unspecified (3) Paroxysmal atrial fibrillation Current visit: Yes Status: Acute Category: Medical Code(s): I48.0 - Paroxysmal atrial fibrillation (4) Hyponatremia Current visit: Yes Status: Acute Category: Medical Code(s): E87.1 - Hypo-osmolality and hyponatremia (5) Hypothyroidism Current visit: Yes Status: Acute Category: Medical Code(s): E03.9 - Hypothyroidism, unspecified (6) Bradycardia Current visit: Yes Status: Acute Category: Medical Code(s): R00.1 - Bradycardia, unspecified (7) Cardiac dysrhythmia Curr
--- NOTE | 2017-10-20 09:30 | HMH.CNCARD ---
History of Present Illness Consult date: 10/20/17 Requesting physician: French Blackwell Consult reason: hypertension Chief complaint: elevated BP Additional Medical History:: 1. Hypertension, treated for at least 10 years 2. History of paroxysmal atrial fibrillation, treated with flecainide and Xarelto per Dr. Walter in [place], [place] 3. Hypothyroidism, on replacement therapy 4. Hyperlipidemia, on statin therapy 5. Family history of early coronary artery disease in a brother and sister in their 40s and 50s, both were smokers. History of present illness: 81-year-old white female admitted from Dr. Blackwell's office for malignant hypertension. Transiently was on IV Nipride but now on p.o. occasions but still with labile blood pressure. Cardiology asked to see patient due to possible drug beat versus blocked PAC noted on telemetry yesterday and elevated blood pressure by multiple medications. Patient does relate at least 10 years of treatment for high blood pressure with recent as needed doses of clonidine due to elevated blood pressure at home. She denies any chest pain, pressure or tightness. She remains very active and denies significant salt intake. She relates being compliant with her medications. [facility] History Medical History: Reports:: Atrial Fibrillation, Hyperlipidemia, Hypertension Denies:: Cancer, Coronary Artery Disease, Cerebrovascular Accident, Diabetes Mellitus Type 1, Diabetes Mellitus Type 2, MRSA Other Medical History: Reports: Anemia, Arthritis, Sinus Problems Other Surgeries: Yes: Cardiac Catheterization, Colonoscopy, EGD Amputation: No - *Social History Educational Level: Attended High School Smoking Status: Former smoker Alcohol Intake: current Alcohol Intake Frequency:: a few times a week Occupational Status: retired Household Members: none - Psychiatric History Expresses thoughts of harming self/others: None Suicide Plan Description: No Plan *Family Hx:: Heart Attack, Hyperlipidemia Meds Home Medications Medication Instructions Recorded Confirmed Type Atorvastatin Calcium [Atorvastatin 10 mg PO DAILY 10/14/17 10/14/17 History 10mg Tab] Calcium Carbonate/Vitamin D3 1 each PO DAILY 10/14/17 10/14/17 History [Calcium 600 + Vit D 400 Softgl] Carvedilol [Carvedilol 12.5mg Tab] 12.5 mg PO BID 10/14/17 10/14/17 History Cefdinir [Omnicef 300mg Capsule] 300 mg PO BID 10/14/17 10/14/17 History Cholecalciferol (Vitamin D3) 1,000 unit PO DAILY 10/14/17 10/14/17 History [Vitamin D3 1,000 Unit Cap] Flecainide Acetate 100 mg PO BID 10/14/17 10/14/17 History Lansoprazole 30 mg PO DAILY 10/14/17 10/14/17 History Lisinopril [Lisinopril 20mg Tab] 20 mg PO BID 10/14/17 10/14/17 History Multivitamin [Multivitamins] 1 each PO DAILY 10/14/17 10/14/17 History [place]-3S/Dha/Epa/Fish Oil [Fish 1 each PO BID 10/14/17 10/14/17 History Oil 1,200 mg Softgel] Rivaroxaban [Xarelto] 20 mg PO DAILY 10/14/17 10/14/17 History cloNIDine HCl [cloNIDine 0.2mg 0.2 mg PO BID 10/14/17 10/15/17 History Tablet] hydrOXYzine HCl [Hydroxyzine HCl] 25 mg PO TID PRN 10/14/17 10/14/17 History hydroCHLOROthiazide [HCTZ 25mg 25 mg PO DAILY 10/14/17 10/14/17 History tab] Allergies Allergy/AdvReac Type Severity Reaction Status Date / Time Penicillins Allergy Intermediate I-RASH Verified 10/14/17 18:18 codeine Allergy Mild NA-NAUSEA/V Verified 10/14/17 18:18 OMITING simvastatin AdvReac Joint Pain Verified 10/15/17 08:11 Review of Systems - *Cardiovascular Denies chest pain, Denies shortness of breath - *Respiratory Denies shortness of breath - *Gastrointestinal Denies abdominal pain - *Genitourinary Denies difficulty urinating - *Musculoskeletal Denies joint pain - *Neurologic Reports headache(s), Reports dizziness (yesterday, has resolved today), Reports weakness Exam Vital signs and Labs for Last 24 Hours: Temp Pulse Resp BP Pulse Ox 98.4 F 56 L 20 220/90
[2017-10-20 15:44] LABS: Anion Gap 10.2 mEq/L (5-15); Blood Urea Nitrogen 23 mg/dL (7-18); Carbon Dioxide 30 mmol/L (21.0-32.0); Chloride 93 mmol/L (98-107); Creatinine Clearance Estimated 50 mL/min (0-300); Creatinine,Serum 1.03 mg/dL (0.55-1.02); Estimated Glomerular Filt Rate 52 ml/min (>60); GFR (African American) 62 ML/MIN (>60); Glucose 111 mg/dL (74-106); Magnesium 1.6 mg/dL (1.4-2.2); Potassium 4.2 mmoL/L (3.5-5.1); Sodium 129 mmol/L (136-145)
--- NOTE | 2017-10-20 15:55 | DIET.NUTRFU ---
po intakes avg 50-75%. wt is 160 lbs, down 4 lbs in 5 days. will continue to monitor.
--- NOTE | 2017-10-20 16:10 | HMH.ACPN2 ---
<Kayla Gama - Last Filed: 10/20/17 16:10> Internal Medicine - PN: Subj *Date: 10/20/17 *Time: 16:10 Interval history: At the request of Dr. Blackwell rhythm strips, vital signs, and current rhythm strips, faxed to Dr. Walter at [phone]. Phone #[phone] he responded after looking at current medications, rhythm strips, and vital signs that patient needed a pacemaker. He stated that they would schedule. He also wanted to change her medicines: restart the Norvasc decreased clonidine to twice daily. Also discussed with Dr. Blackwell and we will decrease her clonidine to 0.2 mg twice daily and start her back on Norvasc 5 mg daily. I discussed all this with Ms. Sauceda and she is fine with the plan of care and is aware of the need for a pacemaker in order to continue with medications to lower her blood pressure. I also spoke with her nurse. Exam Vital signs and Labs for Last 24 Hours: Temp Pulse Resp BP Pulse Ox 98.0 F 60 20 115/54 98 10/20/17 15:26 10/20/17 15:26 10/20/17 15:26 10/20/17 12:00 10/20/17 15:26 Laboratory Results - last 24 hr 10/20/17 15:30: Sodium 129 L, Potassium 4.2, Chloride 93 L, Carbon Dioxide 30, Anion Gap 10.2, BUN 23 H, Creatinine 1.03 H, Estimated Creat Clear 50, Estimated GFR 52 L, Est GFR ( Amer) 62, Glucose 111 H, Magnesium 1.6 I & O for Last 24 hours: Intake & Output 10/18/17 10/19/17 10/20/17 10/21/17 11:59 11:59 11:59 11:59 Intake Total 370 / 370 960 / 960 1200 / 1200 Output Total 1200 / 1200 2600 / 2600 700 / 700 Balance -830 / -830 -1640 / -1640 500 / 500 Weight 160 lb 4 oz Assessment and Plan (1) Malignant hypertension Current visit: Yes Status: Acute Category: Medical Code(s): I10 - Essential (primary) hypertension (2) Hyperlipidemia Current visit: Yes Status: Acute Category: Medical Code(s): E78.5 - Hyperlipidemia, unspecified (3) Paroxysmal atrial fibrillation Current visit: Yes Status: Acute Category: Medical Code(s): I48.0 - Paroxysmal atrial fibrillation (4) Hyponatremia Current visit: Yes Status: Acute Category: Medical Code(s): E87.1 - Hypo-osmolality and hyponatremia (5) Hypothyroidism Current visit: Yes Status: Acute Category: Medical Code(s): E03.9 - Hypothyroidism, unspecified (6) Bradycardia Current visit: Yes Status: Acute Category: Medical Code(s): R00.1 - Bradycardia, unspecified (7) Cardiac dysrhythmia Current visit: Yes Status: Acute Category: Medical Code(s): I49.9 - Cardiac arrhythmia, unspecified <French Blackwell - Last Filed: 10/21/17 13:07> Internal Medicine - PN: Subj *Date: 10/21/17 *Time: 13:07 Exam Vital signs and Labs for Last 24 Hours: Temp Pulse Resp BP Pulse Ox 98.0 F 54 L 18 179/78 98 10/21/17 07:42 10/21/17 08:00 10/21/17 07:42 10/21/17 07:42 10/21/17 07:42 Laboratory Results - last 24 hr 10/20/17 15:30: Sodium 129 L, Potassium 4.2, Chloride 93 L, Carbon Dioxide 30, Anion Gap 10.2, BUN 23 H, Creatinine 1.03 H, Estimated Creat Clear 50, Estimated GFR 52 L, Est GFR ( Amer) 62, Glucose 111 H, Magnesium 1.6 I & O for Last 24 hours: Intake & Output 10/19/17 10/20/17 10/21/17 10/22/17 11:59 11:59 11:59 11:59 Intake Total 960 / 960 1200 / 1200 970 / 970 240 / 240 Output Total 2600 / 2600 700 / 700 700 / 700 Balance -1640 / -1640 500 / 500 270 / 270 240 / 240 Weight 160 lb 4 oz 165 lb 8 oz Assessment and Plan (1) Malignant hypertension Current visit: Yes Status: Acute Category: Medical Code(s): I10 - Essential (primary) hypertension (2) Hyperlipidemia Current visit: Yes Status: Acute Category: Medical Code(s): E78.5 - Hyperlipidemia, unspecified (3) Paroxysmal atrial fibrillation Current visit: Yes Status: Acute Category: Medical Code(s): I48.0 - Paroxysmal atrial fibrillation (4) Hyponatremia Current visit: Yes Status: Acute Category: Medical
--- NOTE | 2017-10-20 16:14 | P.PN_ITS ---
<Kayla Gama - Last Filed: 10/20/17 16:10> Internal Medicine - PN: Subj *Date: 10/20/17 *Time: 16:10 Interval history: At the request of Dr. Blackwell rhythm strips, vital signs, and current rhythm strips, faxed to Dr. Walter at [phone]. Phone #[phone] he responded after looking at current medications, rhythm strips, and vital signs that patient needed a pacemaker. He stated that they would schedule. He also wanted to change her medicines: restart the Norvasc decreased clonidine to twice daily. Also discussed with Dr. Blackwell and we will decrease her clonidine to 0.2 mg twice daily and start her back on Norvasc 5 mg daily. I discussed all this with Ms. Sauceda and she is fine with the plan of care and is aware of the need for a pacemaker in order to continue with medications to lower her blood pressure. I also spoke with her nurse. Exam Vital signs and Labs for Last 24 Hours: Temp Pulse Resp BP Pulse Ox 98.0 F 60 20 115/54 98 10/20/17 15:26 10/20/17 15:26 10/20/17 15:26 10/20/17 12:00 10/20/17 15:26 Laboratory Results - last 24 hr 10/20/17 15:30: Sodium 129 L, Potassium 4.2, Chloride 93 L, Carbon Dioxide 30, Anion Gap 10.2, BUN 23 H, Creatinine 1.03 H, Estimated Creat Clear 50, Estimated GFR 52 L, Est GFR ( Amer) 62, Glucose 111 H, Magnesium 1.6 I & O for Last 24 hours: Intake & Output 10/18/17 10/19/17 10/20/17 10/21/17 11:59 11:59 11:59 11:59 Intake Total 370 / 370 960 / 960 1200 / 1200 Output Total 1200 / 1200 2600 / 2600 700 / 700 Balance -830 / -830 -1640 / -1640 500 / 500 Weight 160 lb 4 oz Assessment and Plan (1) Malignant hypertension Current visit: Yes Status: Acute Category: Medical Code(s): I10 - Essential (primary) hypertension (2) Hyperlipidemia Current visit: Yes Status: Acute Category: Medical Code(s): E78.5 - Hyperlipidemia, unspecified (3) Paroxysmal atrial fibrillation Current visit: Yes Status: Acute Category: Medical Code(s): I48.0 - Paroxysmal atrial fibrillation (4) Hyponatremia Current visit: Yes Status: Acute Category: Medical Code(s): E87.1 - Hypo- osmolality and hyponatremia (5) Hypothyroidism Current visit: Yes Status: Acute Category: Medical Code(s): E03.9 - Hypothyroidism, unspecified (6) Bradycardia Current visit: Yes Status: Acute Category: Medical Code(s): R00.1 - Bradycardia, unspecified (7) Cardiac dysrhythmia Current visit: Yes Status: Acute Category: Medical Code(s): I49.9 - Cardiac arrhythmia, unspecified <French Blackwell - Last Filed: 10/21/17 13:07> Internal Medicine - PN: Subj *Date: 10/21/17 *Time: 13:07 Exam Vital signs and Labs for Last 24 Hours: Temp Pulse Resp BP Pulse Ox 98.0 F 54 L 18 179/78 98 10/21/17 07:42 10/21/17 08:00 10/21/17 07:42 10/21/17 07:42 10/21/17 07:42 Laboratory Results - last 24 hr 10/20/17 15:30: Sodium 129 L, Potassium 4.2, Chloride 93 L, Carbon Dioxide 30, Anion Gap 10.2, BUN 23 H, Creatinine 1.03 H, Estimated Creat Clear 50, Estimated GFR 52 L, Est GFR ( Amer) 62, Glucose 111 H, Magnesium 1.6 I & O for Last 24 hours: Intake & Output 10/19/17 10/20/17 10/21/17 10/22/17 11:59 11:59 11:59 11:59 Intake Total 960 / 960 1200 / 1200 970 / 970 240 / 240 Output Total 2600 / 2600 700 / 700 700 / 700 Balance -1640
--- NOTE | 2017-10-20 22:30 | PC.NURSE ---
Dr Borges notified of unstable B/P of 235/105 via manual cuff. MD gave order to give one time does of clonidine 0.2mg PO and hydralazine 25mg. Order repeated and verified with MD. Medication verified with Smiley Echeverria RN.
[2017-10-21] VITALS (17 sets, daily range): BP systolic 89–201; BP diastolic 42–87; PULSE 20–73; RESP 12–20; TEMP 36.1–37.1; O2SAT 97–99
--- NOTE | 2017-10-21 | CT_ITS ---
CT head/brain wo con HISTORY: Left-sided weakness with facial droop, ITS.REASON: STROKE ALERT ORDERING PHYSICIAN: French Blackwell MD PATIENT AGE: 81 years COMPARISON: 05/16/2012 TECHNIQUE: Axial images obtained without contrast. Brain and bone windows reviewed. FINDINGS: No midline shift, mass effect, intracranial hemorrhage, hydrocephalus, or extra-axial fluid collection is evident. Scattered low density changes are present in the periventricular region consistent with ischemic gliotic change from microvascular disease. The calvarium has an unremarkable appearance. No mastoid effusion. There is opacification of the right frontal frontal and ethmoid sinus anteriorly. IMPRESSION: 1. No acute intracranial hemorrhage. 2. Right frontal and ethmoid sinus disease. 3. There is no evidence of intracranial hemorrhage, focal mass, or acute territorial infarction. A negative CT does not exclude an acute CVA. A follow-up head CT or MRI is recommended if neurological symptoms persist .
--- NOTE | 2017-10-21 05:12 | PC.NURSE ---
Pt continues to have HTN this shift (see previous nurses note and physician notification). Last notification to Dr. Bhakta pt n/p was , gave order for 1 time dose of clonidine 0.2mg. Pt continues to be bradycardiac on monitor with 1 degree HB. Pt family and pt very concerned of pt B/P. Pt lung sounds clear. BS active in all 4 qauds. A&Ox3. Will continue to monitor.
--- NOTE | 2017-10-21 07:02 | PC.NURSE ---
REPORT GIVEN TO Denae AYALA
--- NOTE | 2017-10-21 07:37 | AS_ITS ---
Renal Arterial Duplex Indications: 405.91 Unspecified renovascular hypertension. IMPRESSIONS 1. Normal bilateral renal artery evaluation. 2. No evidence of renal artery stenosis, bilaterally.A second left renal artery is visualized with no evidence of stenosis. Complete renal arterial duplex. Duplex scan and Doppler flow study including spectral analysis, color and pastor scale imaging. Height: Height: 154.9cm. Height: 61in. Weight: Weight: 74.8kg. Weight: 164.7lb. Body mass index: BMI: 31.2kg/m^2. Body surface area: BSA: 1.82m^2. Location: Vascular laboratory. Patient status: Inpatient. CRITICAL FINDINGS - Reported to: Willem Wislon - Read back and verified. - 10/21/2017 - 08:53 AM Tables: Arterial flow: + +-------+--------+ Location V sys V ed + +-------+--------+ Right renal - proximal 165cm/s 42.5cm/s + +-------+--------+ Right renal - mid 132cm/s 38cm/s + +-------+--------+ Right renal - distal 130cm/s 42.9cm/s + +-------+--------+ Left renal - proximal 142cm/s 44.8cm/s + +-------+--------+ Left renal - mid 138cm/s 47.2cm/s + +-------+--------+ Left renal - distal 166cm/s 40.1cm/s + +-------+--------+ Right renal - Origin 196cm/s 48cm/s + +-------+--------+ Left renal - Origin 148cm/s 41cm/s + +-------+--------+ LRA 2 - proximal 144cm/s 43cm/s + +-------+--------+ LRA 2 - mid 149cm/s 45cm/s + +-------+--------+ LRA 2 - Origin 151cm/s 50cm/s + +-------+--------+ Renal anatomy: + +-----+-----+ Left Right + +-----+-----+ Long axis 9.3cm 9.2cm + +-----+-----+ Short axis 5.3cm 5.4cm + +-----+-----+ Velocity ratios: + +-----+---+ V sys V m + +-----+---+ Right renal/aortic 2.5 --- + +-----+---+ Left renal/aortic 2.1 1.9 + +-----+---+ (Report amended ) Electronically signed by: Silverio Bruner [id number]
--- NOTE | 2017-10-21 07:58 | PC.NURSE ---
0715 - Received report from Queta Bass RN
--- NOTE | 2017-10-21 07:59 | PC.NURSE ---
07 - Received call from Willem BILLINGS. Requested to apply Catapress 0.4mg patch (four 0.1mg patches) topically to patient to assist with BP management. 729 - Catapress 0.1mg patch x4 applied to pt's (R) upper arm. Patches were dated and timed.
--- NOTE | 2017-10-21 08:09 | HMH.ACPN2 ---
<Kalie Conrad - Last Filed: 10/21/17 08:09> Internal Medicine - PN: Subj *Date: 10/21/17 *Time: 08:09 Interval history: Patient states she did not have a good night last night. She states her blood pressure was up off and on throughout the night. She had a clonidine patch placed this morning due to an elevated blood pressure by cardiology. She is getting her renal duplex at this time. Exam Vital signs and Labs for Last 24 Hours: Temp Pulse Resp BP Pulse Ox 98.0 F 61 18 179/78 98 10/21/17 07:42 10/21/17 07:42 10/21/17 07:42 10/21/17 07:42 10/21/17 07:42 Laboratory Results - last 24 hr 10/20/17 15:30: Sodium 129 L, Potassium 4.2, Chloride 93 L, Carbon Dioxide 30, Anion Gap 10.2, BUN 23 H, Creatinine 1.03 H, Estimated Creat Clear 50, Estimated GFR 52 L, Est GFR ( Amer) 62, Glucose 111 H, Magnesium 1.6 I & O for Last 24 hours: Intake & Output 10/18/17 10/19/17 10/20/17 10/21/17 11:59 11:59 11:59 11:59 Intake Total 370 / 370 960 / 960 1200 / 1200 970 / 970 Output Total 1200 / 1200 2600 / 2600 700 / 700 700 / 700 Balance -830 / -830 -1640 / -1640 500 / 500 270 / 270 Weight 160 lb 4 oz 165 lb 8 oz - Constitutional no acute distress - *Routine Respiratory Exam Present: CTA bilaterally - *Routine Cardiovascular Exam Present: RRR - *Routine Abdominal Exam Present: soft, normoactive bowel sounds. Absent: tenderness - *Routine Extremities Exam Absent: edema Assessment and Plan (1) Malignant hypertension Current visit: Yes Status: Acute Category: Medical Code(s): I10 - Essential (primary) hypertension (2) Hyperlipidemia Current visit: Yes Status: Acute Category: Medical Code(s): E78.5 - Hyperlipidemia, unspecified (3) Paroxysmal atrial fibrillation Current visit: Yes Status: Acute Category: Medical Code(s): I48.0 - Paroxysmal atrial fibrillation (4) Hyponatremia Current visit: Yes Status: Acute Category: Medical Code(s): E87.1 - Hypo-osmolality and hyponatremia (5) Hypothyroidism Current visit: Yes Status: Acute Category: Medical Code(s): E03.9 - Hypothyroidism, unspecified (6) Bradycardia Current visit: Yes Status: Acute Category: Medical Code(s): R00.1 - Bradycardia, unspecified (7) Cardiac dysrhythmia Current visit: Yes Status: Acute Category: Medical Code(s): I49.9 - Cardiac arrhythmia, unspecified (8) Hypomagnesemia Current visit: Yes Status: Acute Category: Medical Code(s): E83.42 - Hypomagnesemia - Assessment and plan all Dx Assessment and Plan for all problems:: Kayla Gama spoke with the patient's cloth mercerizing supervisor Dr. Walter yesterday. Rhythm strips were actually faxed to Dr. Walter for him to review. She did have some episodes of bradycardia. He felt she needed to be weaned off of her clonidine and once her blood pressure was controlled, she could be discharged home. He is going to set up pacemaker placement for the patient. Will add magnesium d/t low magnesium level. Will await renal duplex results. Will start back on only oral clonidine so we can begin to wean the medication. Will discuss further care with Dr. Blackwell. <French Blackwell - Last Filed: 10/21/17 13:12> Internal Medicine - PN: Subj *Date: 10/21/17 *Time: 13:08 Exam Vital signs and Labs for Last 24 Hours: Temp Pulse Resp BP Pulse Ox 98.0 F 54 L 18 179/78 98 10/21/17 07:42 10/21/17 08:00 10/21/17 07:42 10/21/17 07:42 10/21/17 07:42 Laboratory Results - last 24 hr 10/20/17 15:30: Sodium 129 L, Potassium 4.2, Chloride 93 L, Carbon Dioxide 30, Anion Gap 10.2, BUN 23 H, Creatinine 1.03 H, Estimated Creat Clear 50, Estimated GFR 52 L, Est GFR ( Amer) 62, Glucose 111 H, Magnesium 1.6 I & O for Last 24 hours: Intake & Output 10/19/17 10/20/17 10/21/17 10/22/17 11:59 11:59 11:59 11:59 Intake Total 960 / 960 1200 / 1200 970 / 970 240 / 240 Output Total 2600 / 2600
--- NOTE | 2017-10-21 08:14 | P.PN_ITS ---
<Kalie Conrad - Last Filed: 10/21/17 08:09> Internal Medicine - PN: Subj *Date: 10/21/17 *Time: 08:09 Interval history: Patient states she did not have a good night last night. She states her blood pressure was up off and on throughout the night. She had a clonidine patch placed this morning due to an elevated blood pressure by cardiology. She is getting her renal duplex at this time. Exam Vital signs and Labs for Last 24 Hours: Temp Pulse Resp BP Pulse Ox 98.0 F 61 18 179/78 98 10/21/17 07:42 10/21/17 07:42 10/21/17 07:42 10/21/17 07:42 10/21/17 07:42 Laboratory Results - last 24 hr 10/20/17 15:30: Sodium 129 L, Potassium 4.2, Chloride 93 L, Carbon Dioxide 30, Anion Gap 10.2, BUN 23 H, Creatinine 1.03 H, Estimated Creat Clear 50, Estimated GFR 52 L, Est GFR ( Amer) 62, Glucose 111 H, Magnesium 1.6 I & O for Last 24 hours: Intake & Output 10/18/17 10/19/17 10/20/17 10/21/17 11:59 11:59 11:59 11:59 Intake Total 370 / 370 960 / 960 1200 / 1200 970 / 970 Output Total 1200 / 1200 2600 / 2600 700 / 700 700 / 700 Balance -830 / -830 -1640 / -1640 500 / 500 270 / 270 Weight 160 lb 4 oz 165 lb 8 oz - Constitutional no acute distress - *Routine Respiratory Exam Present: CTA bilaterally - *Routine Cardiovascular Exam Present: RRR - *Routine Abdominal Exam Present: soft, normoactive bowel sounds. Absent: tenderness - *Routine Extremities Exam Absent: edema Assessment and Plan (1) Malignant hypertension Current visit: Yes Status: Acute Category: Medical Code(s): I10 - Essential (primary) hypertension (2) Hyperlipidemia Current visit: Yes Status: Acute Category: Medical Code(s): E78.5 - Hyperlipidemia, unspecified (3) Paroxysmal atrial fibrillation Current visit: Yes Status: Acute Category: Medical Code(s): I48.0 - Paroxysmal atrial fibrillation (4) Hyponatremia Current visit: Yes Status: Acute Category: Medical Code(s): E87.1 - Hypo- osmolality and hyponatremia (5) Hypothyroidism Current visit: Yes Status: Acute Category: Medical Code(s): E03.9 - Hypothyroidism, unspecified (6) Bradycardia Current visit: Yes Status: Acute Category: Medical Code(s): R00.1 - Bradycardia, unspecified (7) Cardiac dysrhythmia Current visit: Yes Status: Acute Category: Medical Code(s): I49.9 - Cardiac arrhythmia, unspecified (8) Hypomagnesemia Current visit: Yes Status: Acute Category: Medical Code(s): E83.42 - Hypomagnesemia - Assessment and plan all Dx Assessment and Plan for all problems:: Kayla Gama spoke with the patient's adult care provider Dr. Walter yesterday. Rhythm strips were actually faxed to Dr. Walter for him to review. She did have some episodes of bradycardia. He felt she needed to be weaned off of her clonidine and once her blood pressure was controlled, she could be discharged home. He is going to set up pacemaker placement for the patient. Will add magnesium d/t low magnesium level. Will await renal duplex results. Will start back on only oral clonidine so we can begin to wean the medication. Will discuss further care with Dr. Blackwell. <French Blackwell - Last Filed: 10/21/17 13:12> Internal Medicine - PN: Subj *Date: 10/21/17 *Time: 13:08 Exam Vital signs and Labs for Last 24 Hours: Temp Pulse Resp BP Pulse Ox 98.0 F 54 L 18 1
--- NOTE | 2017-10-21 08:35 | P.PN_ITS ---
Subjective Date: 10/21/17 Time: 08:29 Principal diagnosis: HTN Interval history: WF in bed in NAD. Elevated BP overnight. Catapres patch held yesterday due to low BP and HR. Started this AM. Renal duplex in progress. No complaints at this time. Review of Systems - *Cardiovascular Denies chest pain - *Respiratory Denies shortness of breath - *Neurologic Reports headache(s), Reports dizziness (yesterday, has resolved today), Reports weakness Meds Home Medications Medication Instructions Recorded Confirmed Type Atorvastatin Calcium [Atorvastatin 10 mg PO DAILY 10/14/17 10/14/17 History 10mg Tab] Calcium Carbonate/Vitamin D3 1 each PO DAILY 10/14/17 10/14/17 History [Calcium 600 + Vit D 400 Softgl] Carvedilol [Carvedilol 12.5mg Tab] 12.5 mg PO BID 10/14/17 10/14/17 History Cefdinir [Omnicef 300mg Capsule] 300 mg PO BID 10/14/17 10/14/17 History Cholecalciferol (Vitamin D3) 1,000 unit PO DAILY 10/14/17 10/14/17 History [Vitamin D3 1,000 Unit Cap] Flecainide Acetate 100 mg PO BID 10/14/17 10/14/17 History Lansoprazole 30 mg PO DAILY 10/14/17 10/14/17 History Lisinopril [Lisinopril 20mg Tab] 20 mg PO BID 10/14/17 10/14/17 History Multivitamin [Multivitamins] 1 each PO DAILY 10/14/17 10/14/17 History [place]-3S/Dha/Epa/Fish Oil [Fish 1 each PO BID 10/14/17 10/14/17 History Oil 1,200 mg Softgel] Rivaroxaban [Xarelto] 20 mg PO DAILY 10/14/17 10/14/17 History cloNIDine HCl [cloNIDine 0.2mg 0.2 mg PO BID 10/14/17 10/15/17 History Tablet] hydrOXYzine HCl [Hydroxyzine HCl] 25 mg PO TID PRN 10/14/17 10/14/17 History hydroCHLOROthiazide [HCTZ 25mg 25 mg PO DAILY 10/14/17 10/14/17 History tab] Allergies Allergy/AdvReac Type Severity Reaction Status Date / Time Penicillins Allergy Intermediate I-RASH Verified 10/14/17 18:18 codeine Allergy Mild NA-NAUSEA/V Verified 10/14/17 18:18 OMITING simvastatin AdvReac Joint Pain Verified 10/15/17 08:11 Exam Vital signs and Labs for Last 24 Hours: Temp Pulse Resp BP Pulse Ox 98.0 F 61 18 179/78 98 10/21/17 07:42 10/21/17 07:42 10/21/17 07:42 10/21/17 07:42 10/21/17 07:42 Laboratory Results - last 24 hr 10/20/17 15:30: Sodium 129 L, Potassium 4.2, Chloride 93 L, Carbon Dioxide 30, Anion Gap 10.2, BUN 23 H, Creatinine 1.03 H, Estimated Creat Clear 50, Estimated GFR 52 L, Est GFR ( Amer) 62, Glucose 111 H, Magnesium 1.6 I & O for Last 24 hours: Intake & Output 10/18/17 10/19/17 10/20/17 10/21/17 11:59 11:59 11:59 11:59 Intake Total 370 / 370 960 / 960 1200 / 1200 970 / 970 Output Total 1200 / 1200 2600 / 2600 700 / 700 700 / 700 Balance -830 / -830 -1640 / -1640 500 / 500 270 / 270 Weight 160 lb 4 oz 165 lb 8 oz Plan - Patient/Caregiver Discharge Instructions Activity: Norvasc restarted overnight due to elevated BP. Follow BP on catapres patch with weaning of oral tabs. 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 This has been discussed with Dr. Walter (her [employer] Safety Engineer in [place]). Patient Instructions: Low-Sodium Diet - Follow Up Plan
--- NOTE | 2017-10-21 14:20 | PC.NURSE ---
1350 - Pt visiting with daughter and Dawn. C/O tingling in face and feeling flush. BP obtained and SBP 182. Dr Blackwell advised of change in patient's condition and order received to give 1300 Hydralizine dose, place pt in step down, and Vistaril 25mg PO PRN.
[2017-10-21 17:26] LABS: POC Glucose,Bedside 91 mg/dL (70-110)
--- NOTE | 2017-10-21 17:58 | PC.NURSE ---
2691- MD notified for Rapid Response RED, Stroke Alert activated (after obtaining glucose of 91) due to new onset of left-sided facial droop and arm/leg weakness. Daughters in room on and off throughout the day; they have been concerned for symptoms shown today before this event including dizziness and her head feeling foggy, especially after showing symptoms of having trouble getting out words and saying what she means with slurred speech last night when blood pressure was elevated. CT results were not available yet at this time, but MD was contacted due to blood pressure being 215/96. Amlodipine 2.5mg po once was ordered for blood pressure and MD was told that if abnormal results came back we would let him know immediately. Patient resting comfortably in bed at this time with continuous monitoring in step-down bed; bedside dysphagia screen completed by primary nurse and patient easily passed with no difficulty. Will continue to monitor.
--- NOTE | 2017-10-21 18:51 | HMH.ACPN2 ---
Internal Medicine - PN: Subj *Date: 10/21/17 *Time: 18:51 Interval history: CALL COVERAGE NOTE: I was notified of a Stroke Alert on this patient with BP 215/96. BP's have been variable. Has had episodes of bradycardia (rate of twenty at 1358!). I came to see the patient after office hours. She is awake and alert and in no acute distress. Blood pressure last reading was 138/39. Her current heart rate is 60 he has no facial droop. Her hand farm loan inspector is equal bilaterally. She has good rapid alternating movements on exam. Exam Vital signs and Labs for Last 24 Hours: Temp Pulse Resp BP Pulse Ox 98.3 F 56 L 14 183/83 98 10/21/17 15:52 10/21/17 18:06 10/21/17 18:06 10/21/17 18:06 10/21/17 18:06 Laboratory Results - last 24 hr 10/21/17 16:41: POC Glucose 91 I & O for Last 24 hours: Intake & Output 10/19/17 10/20/17 10/21/17 10/22/17 11:59 11:59 11:59 11:59 Intake Total 960 / 960 1200 / 1200 970 / 970 240 / 240 Output Total 2600 / 2600 700 / 700 700 / 700 400 / 400 Balance -1640 / -1640 500 / 500 270 / 270 -160 / -160 Weight 160 lb 4 oz 165 lb 8 oz - Constitutional no acute distress - *Routine Neurological Exam Present: alert, oriented X3, normal speech. Absent: facial asymmetry Strong equal hand farm loan inspector. Rapid alternating movements are normal on exam. She seems neurologically intact. Assessment and Plan (1) Malignant hypertension Current visit: Yes Status: Acute Category: Medical Code(s): I10 - Essential (primary) hypertension (2) Hyperlipidemia Current visit: Yes Status: Acute Category: Medical Code(s): E78.5 - Hyperlipidemia, unspecified (3) Paroxysmal atrial fibrillation Current visit: Yes Status: Acute Category: Medical Code(s): I48.0 - Paroxysmal atrial fibrillation (4) Hyponatremia Current visit: Yes Status: Acute Category: Medical Code(s): E87.1 - Hypo-osmolality and hyponatremia (5) Hypothyroidism Current visit: Yes Status: Acute Category: Medical Code(s): E03.9 - Hypothyroidism, unspecified (6) Bradycardia Current visit: Yes Status: Acute Category: Medical Code(s): R00.1 - Bradycardia, unspecified (7) Cardiac dysrhythmia Current visit: Yes Status: Acute Category: Medical Code(s): I49.9 - Cardiac arrhythmia, unspecified (8) Hypomagnesemia Current visit: Yes Status: Acute Category: Medical Code(s): E83.42 - Hypomagnesemia - Assessment and plan all Dx Assessment and Plan for all problems:: When I was contacted regarding the high blood pressure I ordered an additional 2.5 mg of amlodipine.
--- NOTE | 2017-10-21 18:57 | P.PN_ITS ---
Internal Medicine - PN: Subj *Date: 10/21/17 *Time: 18:51 Interval history: CALL COVERAGE NOTE: I was notified of a Stroke Alert on this patient with BP 215/96. BP's have been variable. Has had episodes of bradycardia (rate of twenty at 1358!). I came to see the patient after office hours. She is awake and alert and in no acute distress. Blood pressure last reading was 138/39. Her current heart rate is 60 he has no facial droop. Her hand pediatric licensed practical nurse is equal bilaterally. She has good rapid alternating movements on exam. Exam Vital signs and Labs for Last 24 Hours: Temp Pulse Resp BP Pulse Ox 98.3 F 56 L 14 183/83 98 10/21/17 15:52 10/21/17 18:06 10/21/17 18:06 10/21/17 18:06 10/21/17 18:06 Laboratory Results - last 24 hr 10/21/17 16:41: POC Glucose 91 I & O for Last 24 hours: Intake & Output 10/19/17 10/20/17 10/21/17 10/22/17 11:59 11:59 11:59 11:59 Intake Total 960 / 960 1200 / 1200 970 / 970 240 / 240 Output Total 2600 / 2600 700 / 700 700 / 700 400 / 400 Balance -1640 / -1640 500 / 500 270 / 270 -160 / -160 Weight 160 lb 4 oz 165 lb 8 oz - Constitutional no acute distress - *Routine Neurological Exam Present: alert, oriented X3, normal speech. Absent: facial asymmetry Strong equal hand pediatric licensed practical nurse. Rapid alternating movements are normal on exam. She seems neurologically intact. Assessment and Plan (1) Malignant hypertension Current visit: Yes Status: Acute Category: Medical Code(s): I10 - Essential (primary) hypertension (2) Hyperlipidemia Current visit: Yes Status: Acute Category: Medical Code(s): E78.5 - Hyperlipidemia, unspecified (3) Paroxysmal atrial fibrillation Current visit: Yes Status: Acute Category: Medical Code(s): I48.0 - Paroxysmal atrial fibrillation (4) Hyponatremia Current visit: Yes Status: Acute Category: Medical Code(s): E87.1 - Hypo- osmolality and hyponatremia (5) Hypothyroidism Current visit: Yes Status: Acute Category: Medical Code(s): E03.9 - Hypothyroidism, unspecified (6) Bradycardia Current visit: Yes Status: Acute Category: Medical Code(s): R00.1 - Bradycardia, unspecified (7) Cardiac dysrhythmia Current visit: Yes Status: Acute Category: Medical Code(s): I49.9 - Cardiac arrhythmia, unspecified (8) Hypomagnesemia Current visit: Yes Status: Acute Category: Medical Code(s): E83.42 - Hypomagnesemia - Assessment and plan all Dx Assessment and Plan for all problems:: When I was contacted regarding the high blood pressure I ordered an additional 2.5 mg of amlodipine.
--- NOTE | 2017-10-21 19:25 | PC.NURSE ---
PT DNI VERIFIED IN PT CHART. REPORT FROM STEPAN
[2017-10-22] VITALS (18 sets, daily range): BP systolic 71–163; BP diastolic 41–74; PULSE 29–66; RESP 16–20; TEMP 36.4–36.9; O2SAT 92–99
--- NOTE | 2017-10-22 05:52 | PC.NURSE ---
PT BP HAS BEEN LABILE. HAS BEEN BRADYCARDIC ALL SHIFT. SINUS RIGOBERTO ON MONITOR. DAUGHTER AT BEDSIDE. IV TO SALINE LOCK, PATENT. C/O OF HEADACHE ONCE THIS SHIFT. BP MEDS HELD LAST NIGHT R/T LOW BP. NO CHEST PAIN OR SOA REPORTED. PT STABLE. WILL CONTINUE TO MONITOR. REPORT TO BE GIVEN TO ONCOMING NURSE.
--- NOTE | 2017-10-22 08:21 | HMH.ACPN2 ---
<Kalie Conrad - Last Filed: 10/22/17 08:21> Internal Medicine - PN: Subj *Date: 10/22/17 *Time: 08:21 Interval history: Pt is doing a little better this morning. She states she had some low blood pressures in the middle of the night. Her heart rate has been staying around 40-50. Her blood pressure is normal this a.m. She slept well and she ate well this morning. Exam Vital signs and Labs for Last 24 Hours: Temp Pulse Resp BP Pulse Ox 98.4 F 51 L 18 156/65 99 10/22/17 04:00 10/22/17 06:10 10/22/17 06:10 10/22/17 06:10 10/22/17 06:10 Laboratory Results - last 24 hr 10/21/17 16:41: POC Glucose 91 I & O for Last 24 hours: Intake & Output 10/19/17 10/20/17 10/21/17 10/22/17 11:59 11:59 11:59 11:59 Intake Total 960 / 960 1200 / 1200 970 / 970 250 / 250 Output Total 2600 / 2600 700 / 700 700 / 700 800 / 800 Balance -1640 / -1640 500 / 500 270 / 270 -550 / -550 Weight 160 lb 4 oz 165 lb 8 oz 160 lb 3 oz - Constitutional no acute distress - *Routine Respiratory Exam Present: CTA bilaterally - *Routine Cardiovascular Exam Present: RRR - *Routine Abdominal Exam Present: soft, normoactive bowel sounds. Absent: tenderness - *Routine Extremities Exam Absent: edema Assessment and Plan (1) Malignant hypertension Current visit: Yes Status: Acute Category: Medical Code(s): I10 - Essential (primary) hypertension (2) Hyperlipidemia Current visit: Yes Status: Acute Category: Medical Code(s): E78.5 - Hyperlipidemia, unspecified (3) Paroxysmal atrial fibrillation Current visit: Yes Status: Acute Category: Medical Code(s): I48.0 - Paroxysmal atrial fibrillation (4) Hyponatremia Current visit: Yes Status: Acute Category: Medical Code(s): E87.1 - Hypo-osmolality and hyponatremia (5) Hypothyroidism Current visit: Yes Status: Acute Category: Medical Code(s): E03.9 - Hypothyroidism, unspecified (6) Bradycardia Current visit: Yes Status: Acute Category: Medical Code(s): R00.1 - Bradycardia, unspecified (7) Cardiac dysrhythmia Current visit: Yes Status: Acute Category: Medical Code(s): I49.9 - Cardiac arrhythmia, unspecified (8) Hypomagnesemia Current visit: Yes Status: Acute Category: Medical Code(s): E83.42 - Hypomagnesemia - Assessment and plan all Dx Assessment and Plan for all problems:: Will discuss further care with Dr. Blackwell. <French Blackwell - Last Filed: 10/22/17 12:37> Internal Medicine - PN: Subj *Date: 10/22/17 *Time: 12:33 Exam Vital signs and Labs for Last 24 Hours: Temp Pulse Resp BP Pulse Ox 98.2 F 46 L 20 84/46 99 10/22/17 12:00 10/22/17 12:00 10/22/17 12:00 10/22/17 12:00 10/22/17 12:00 Laboratory Results - last 24 hr 10/21/17 16:41: POC Glucose 91 I & O for Last 24 hours: Intake & Output 10/20/17 10/21/17 10/22/17 10/23/17 11:59 11:59 11:59 11:59 Intake Total 1200 / 1200 970 / 970 250 / 250 Output Total 700 / 700 700 / 700 800 / 800 Balance 500 / 500 270 / 270 -550 / -550 Weight 160 lb 4 oz 165 lb 8 oz 160 lb 3 oz Assessment and Plan (1) Malignant hypertension Current visit: Yes Status: Acute Category: Medical Code(s): I10 - Essential (primary) hypertension (2) Hyperlipidemia Current visit: Yes Status: Acute Category: Medical Code(s): E78.5 - Hyperlipidemia, unspecified (3) Paroxysmal atrial fibrillation Current visit: Yes Status: Acute Category: Medical Code(s): I48.0 - Paroxysmal atrial fibrillation (4) Hyponatremia Current visit: Yes Status: Acute Category: Medical Code(s): E87.1 - Hypo-osmolality and hyponatremia (5) Hypothyroidism Current visit: Yes Status: Acute Category: Medical Code(s): E03.9 - Hypothyroidism, unspecified (6) Bradycardia Current visit: Yes Status: Acute Category: Medical Code(s): R00.1 - Bradycardia, unspecified (7) Cardiac dysrhythmia Cu
--- NOTE | 2017-10-22 18:30 | PC.NURSE ---
81 YEAR OLD FEMALE PRESENTS WITH A DIAGNOSIS OF MALIGNANT HTN. SHE DENIES PAIN OR DISCOMFORT TODAY. SHE CONTINUES TO HAVE BRADYCARDIA TODAY WITH HR RANGING FROM 20-50. HER BLOOD PRESSURE HAS BEEN LOW AT TIMES TODAY. SHE HAS BEEN UP IN THE CHAIR MOST OF THE DAY WITH FAMILY AT BEDSIDE. SHE TOOK A SHOWER THIS AFTERNOON AND STATES SHE FEELS ALOT BETTER. SHE REFUSES TO WEAR HAMZAH HOSE. LUNGS ARE CTA. WE WILL CONTINUE TO MONITOR. SUSY PINEDA, MSN, RN
--- NOTE | 2017-10-22 19:08 | PC.NURSE ---
NOTED [id number] PATIENT OFF THE MONITOR FOR A SHOWER. SUSY PINEDA, MSN, RN
[2017-10-23] VITALS (23 sets, daily range): BP systolic 81–223; BP diastolic 34–107; PULSE 40–85; RESP 16–20; TEMP 36.4–36.6; O2SAT 95–100
--- NOTE | 2017-10-23 04:53 | PC.NURSE ---
Addendum entered by Ann Marie Franklin RN 10/23/17 05:13: FIRST DEGREE HEART BLOCK W/ PROLONGED QT INTERVAL NOTED PER PINNER PRINTED CIRCUIT BOARDS. Original Note: NO COMPLAINTS STATED. WHILE PT SLEEPING, BP NOTED 80'S/30'S, ONCE RN AROUSES PT AND BP IS REASSESSED, BP NOTED 100'S/60'S. RN EXPLAINED REASONING FOR RETAKE OF BP, PT STATED YES, I WAS SLEEPING VERY GOOD. AMBULATED IN ROSS WITH FAMILY MEMBER THIS SHIFT, TOLERATED WELL. VSS. WILL CONTINUE TO MONITOR.
--- NOTE | 2017-10-23 07:18 | PC.NURSE ---
REPORT GIVEN TO Queta TSE W/C
--- NOTE | 2017-10-23 08:06 | HMH.ACPN2 ---
<Kalie Conrad - Last Filed: 10/23/17 08:06> Internal Medicine - PN: Subj *Date: 10/23/17 *Time: 08:06 Interval history: Patient states she feels well this morning. Her daughter states her blood pressures were all normal throughout the night. She did not have a headache during the night. She slept well and ate well this morning. Exam Vital signs and Labs for Last 24 Hours: Temp Pulse Resp BP Pulse Ox 97.5 F L 85 18 95/41 95 10/23/17 04:00 10/23/17 04:00 10/23/17 04:00 10/23/17 04:00 10/23/17 04:00 I & O for Last 24 hours: Intake & Output 10/20/17 10/21/17 10/22/17 10/23/17 11:59 11:59 11:59 11:59 Intake Total 1200 / 1200 970 / 970 250 / 250 610 / 610 Output Total 700 / 700 700 / 700 800 / 800 200 / 200 Balance 500 / 500 270 / 270 -550 / -550 410 / 410 Weight 160 lb 4 oz 165 lb 8 oz 160 lb 3 oz 159 lb 8 oz - Constitutional no acute distress - *Routine Respiratory Exam Present: CTA bilaterally - *Routine Cardiovascular Exam Present: bradycardia - *Routine Abdominal Exam Present: soft, normoactive bowel sounds. Absent: tenderness - *Routine Extremities Exam Absent: edema Assessment and Plan (1) Malignant hypertension Current visit: Yes Status: Acute Category: Medical Code(s): I10 - Essential (primary) hypertension (2) Hyperlipidemia Current visit: Yes Status: Acute Category: Medical Code(s): E78.5 - Hyperlipidemia, unspecified (3) Paroxysmal atrial fibrillation Current visit: Yes Status: Acute Category: Medical Code(s): I48.0 - Paroxysmal atrial fibrillation (4) Hyponatremia Current visit: Yes Status: Acute Category: Medical Code(s): E87.1 - Hypo-osmolality and hyponatremia (5) Hypothyroidism Current visit: Yes Status: Acute Category: Medical Code(s): E03.9 - Hypothyroidism, unspecified (6) Bradycardia Current visit: Yes Status: Acute Category: Medical Code(s): R00.1 - Bradycardia, unspecified (7) Cardiac dysrhythmia Current visit: Yes Status: Acute Category: Medical Code(s): I49.9 - Cardiac arrhythmia, unspecified (8) Hypomagnesemia Current visit: Yes Status: Acute Category: Medical Code(s): E83.42 - Hypomagnesemia - Assessment and plan all Dx Assessment and Plan for all problems:: Patient's blood pressure has been stable. Will discuss further care with Dr. Blackwell. <French Blackwell Broderick - Last Filed: 10/23/17 08:48> Internal Medicine - PN: Subj *Date: 10/23/17 *Time: 08:47 Exam Vital signs and Labs for Last 24 Hours: Temp Pulse Resp BP Pulse Ox 97.5 F L 48 L 18 128/55 100 10/23/17 04:00 10/23/17 08:00 10/23/17 06:00 10/23/17 06:00 10/23/17 08:00 I & O for Last 24 hours: Intake & Output 10/20/17 10/21/17 10/22/17 10/23/17 11:59 11:59 11:59 11:59 Intake Total 1200 / 1200 970 / 970 250 / 250 610 / 610 Output Total 700 / 700 700 / 700 800 / 800 200 / 200 Balance 500 / 500 270 / 270 -550 / -550 410 / 410 Weight 160 lb 4 oz 165 lb 8 oz 160 lb 3 oz 159 lb 8 oz Assessment and Plan (1) Malignant hypertension Current visit: Yes Status: Acute Category: Medical Code(s): I10 - Essential (primary) hypertension (2) Hyperlipidemia Current visit: Yes Status: Acute Category: Medical Code(s): E78.5 - Hyperlipidemia, unspecified (3) Paroxysmal atrial fibrillation Current visit: Yes Status: Acute Category: Medical Code(s): I48.0 - Paroxysmal atrial fibrillation (4) Hyponatremia Current visit: Yes Status: Acute Category: Medical Code(s): E87.1 - Hypo-osmolality and hyponatremia (5) Hypothyroidism Current visit: Yes Status: Acute Category: Medical Code(s): E03.9 - Hypothyroidism, unspecified (6) Bradycardia Current visit: Yes Status: Acute Category: Medical Code(s): R00.1 - Bradycardia, unspecified (7) Cardiac dysrhythmia Current visit: Yes Status: Acute Category: Medical Code(s): I49.9 - Cardiac ar
--- NOTE | 2017-10-23 09:50 | HMH.RR ---
Acute Rapid Response Note - Subjective Date Responded: 10/21/17 Time Responded: 16:47 Provider Note: called to rapid respones; S: The patient was on her way to CT scan, in no distress, pleasent and smiling without facial droop, no slurred speech. denied complaint. o: The patient had labile hypertension, she is in no cardiopulmonary distress . neurological examination there was no focal deficits, no facial droop no drift, no cerebellar symptoms. Assessment and plan: 1-Proceed with CT scan and notify Dr. weeks with a result. 2- Patient is DO NOT INTUBATE. Dr> David - Objective Findings: Vital Signs - Last 4 Hours Temperature 97.7 F 10/23/17 08:00 Temperature Source Oral 10/23/17 08:00 Pulse Rate 53 L 10/23/17 09:00 Respiratory Rate 18 10/23/17 09:00 Blood Pressure 118/48 10/23/17 09:00 Blood Pressure Mean 71 10/23/17 09:00 Blood Pressure Source Automatic Cuff 10/23/17 09:00 Blood Pressure Position Sitting 10/23/17 09:00 02 Sat by Pulse Oximetry 98 10/23/17 09:00 Oxygen Delivery Method 10/23/17 09:17 Oxygen Flow Rate (LPM) 2 10/22/17 16:00
--- NOTE | 2017-10-23 18:37 | PC.NURSE ---
PATIENT HAS HAD A GOOD DAY. HAS BEEN UP WALKING IN ROSS AND ROOM. ONLY COMPLAINT OF A SMALL HEADACHE. BP HAS DONE WELL, HIGHEST WAS AFTER WALKING FOR A WHILE, AND AFTER REST BP WENT BACK DOWN. REMAINS ON ROOM AIR. NO SOB. VSS WILL CONTINUE TO MONITOR.
--- NOTE | 2017-10-23 22:17 | PC.NURSE ---
WC NOTIFIED THIS RN OF 35 HR, THIS RN ASSESSED PT, PT WAS SLEEPING AT THIS TIME.
--- NOTE | 2017-10-23 22:20 | PC.NURSE ---
Late entry : @ 7090 heart rate alarmed & noted to be 35 on environmental monitoring technician. A Noemi RN notified . Strip obtained. Will place on chart for MD to review.
[2017-10-24] VITALS (27 sets, daily range): BP systolic 74–194; BP diastolic 32–87; PULSE 21–66; RESP 16–20; TEMP 36.5–36.9; O2SAT 96–99
--- NOTE | 2017-10-24 03:55 | PC.NURSE ---
Addendum entered by Carina Milan RN 10/24/17 05:07: PT HAS BEEN UP AND DOWN THROUGHOUT NIGHT TO VOID. PT REPORTS FREQUENCY. VOIDING CLEAR, YELLOW URINE. DENIES PAIN, BURNING OR DIFFICULTY URINATING. Original Note: PT UP AMBULATING IN HALLWAY WITH DAUGHTER AT BEGINNING OF SHIFT. PT BP REMAINS SENSITIVE TO ACTIVITY, BP 223/107 @ 1931 WHEN PT RETURNED TO ROOM FROM WALK. PT REPORTED FEELING SHAKY , FACIAL FLUSHING NOTED. ADMINISTERED NIGHT TIME BP MEDS EARLY. MEDS EFFECTIVE, BP 134/56 AT 2036. OFFERED PT ANXIETY MEDS TWICE THIS SHIFT, PT REFUSED. BP CONTINUES TO ELEVATE WHEN PT GETS UP, TRENDS DOWN WITH REST. PRN TYLENOL GIVEN ONCE THIS SHIFT FOR COMPLAINTS OF DULL HEADACHE, PT RATED PAIN 2/10. TYLENOL EFFECTIVE, NO C/O OF PAIN WITH REASSESSMENT. 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 PT AND FAMILY EDUCATED ON POC, MEDICATIONS, SAFETY, PAIN AND INTERVENTIONS, CALL LIGHT, AND IMPORTANCE OF MEDICATION COMPLIANCE, VERBALIZED UNDERSTANDING. LYING IN BED RESTING WITH DAUGHTER AT BEDSIDE.
--- NOTE | 2017-10-24 07:15 | PC.NURSE ---
REPORT GIVEN TO Siri ABDI W/C
--- NOTE | 2017-10-24 07:21 | PC.NURSE ---
PT DROPPED SYNTHROID ON FLOOR, RN PULLED SYNTHROID OUT OF OMNI TO EQUAL CORRECT DOSE FOR ADMINISTRATION.
--- NOTE | 2017-10-24 07:27 | PC.NURSE ---
HANDOFF SHIFT REPORT GIVEN TO Peewee LUCERO RN
--- NOTE | 2017-10-24 08:58 | P.PN_ITS ---
Internal Medicine - PN: Subj *Date: 10/24/17 *Time: 08:58 Interval history: States she did not sleep as well. Had some chills and urinary frequency. No dysuria or fever. BP noted >200 once after she had been ambulating in hallway. One episode of bradycardia into 30s. Exam Vital signs and Labs for Last 24 Hours: Temp Pulse Resp BP Pulse Ox 98.5 F 57 L 20 150/68 97 10/24/17 08:00 10/24/17 08:00 10/24/17 08:00 10/24/17 08:00 10/24/17 08:00 I & O for Last 24 hours: Intake & Output 10/21/17 10/22/17 10/23/17 10/24/17 11:59 11:59 11:59 11:59 Intake Total 970 / 970 250 / 250 850 / 850 1230 / 1230 Output Total 700 / 700 800 / 800 200 / 200 325 / 325 Balance 270 / 270 -550 / -550 650 / 650 905 / 905 Weight 165 lb 8 oz 160 lb 3 oz 159 lb 8 oz 156 lb 4 oz - Constitutional no acute distress - *Routine Respiratory Exam Present: CTA bilaterally - *Routine Cardiovascular Exam Present: RRR - *Routine Abdominal Exam Present: soft. Absent: tenderness - *Routine Extremities Exam Absent: edema Assessment and Plan (1) Malignant hypertension Current visit: Yes Status: Acute Category: Medical Code(s): I10 - Essential (primary) hypertension (2) Hyperlipidemia Current visit: Yes Status: Acute Category: Medical Code(s): E78.5 - Hyperlipidemia, unspecified (3) Paroxysmal atrial fibrillation Current visit: Yes Status: Acute Category: Medical Code(s): I48.0 - Paroxysmal atrial fibrillation (4) Hyponatremia Current visit: Yes Status: Acute Category: Medical Code(s): E87.1 - Hypo- osmolality and hyponatremia (5) Hypothyroidism Current visit: Yes Status: Acute Category: Medical Code(s): E03.9 - Hypothyroidism, unspecified (6) Bradycardia Current visit: Yes Status: Acute Category: Medical Code(s): R00.1 - Bradycardia, unspecified (7) Cardiac dysrhythmia Current visit: Yes Status: Acute Category: Medical Code(s): I49.9 - Cardiac arrhythmia, unspecified (8) Hypomagnesemia Current visit: Yes Status: Acute Category: Medical Code(s): E83.42 - Hypomagnesemia - Assessment and plan all Dx Assessment and Plan for all problems:: CHeck urine today. Plan for cardiology f/u for PPM tomorrow.
--- NOTE | 2017-10-24 15:48 | PC.NURSE ---
1511 PATIENT TELEMETRY ALARMED WITH A HR OF 29BPM. IT DROPPED TO 23 BPM AT ITS LOWEST AND RETURNED TO BASELINE OF 51 BPM WITHIN 30 SECONDS. PATIENT WAS CHECKED IMMEDIATELY AND FOUND TO BE SITTING IN THE RECLINER WATCHING TV. SHE STATES SHE FEELS FINE AT THIS TIME. 1516 PATIENT TELEMETRY ALARMED WITH A HR OF 28 BPM. IT DROPPED TO 21 BPM AT ITS LOWEST AND RETURNED TO BASELINE OF 53 WITHIN 60 SECONDS. PATIENT IS AGAIN FOUND ASYMPTOMATIC SITTING IN RECLINER WATCHING TV. AT THIS TIME PATIENT BP WAS FOUND TO BE 85/41. 1522 PATIENT TELEMETRY ALARMED WITH A HR OF 29 BPM. CLOSE MONITORING WAS CONTINUED AT THIS TIME. 1530 PATIENT HR 52 BP 97/63 - PATIENT WITH NO COMPLAINTS AT THIS TIME. 1600 PATIENT VISITING WITH FAMILY HR 59 BP 119/50
[2017-10-24 17:13] LABS: Microscopic, Urine URINE MICROSCOPIC (MICROSCOPIC)
[2017-10-24 17:16] LABS: Appearance,Urine CLEAR (Clear); Bilirubin,Urine Negative (Negative); Blood, Urine Negative (Negative); Color,Urine YELLOW (Yellow); Glucose,Urine (UA) Negative (Negative); Ketones,Urine Negative (Negative); Leukocyte Esterase,Urine Negative (Negative); Nitrate,Urine Negative (Negative); Protein,Urine Negative (Negative); Specific Gravity, Urine <= 1.005 (1.005-1.030); Urobilinogen,Urine 0.2 EU/dl (0.2)
[2017-10-24 17:23] LABS: Bacteria,Urine Trace /lpf
--- NOTE | 2017-10-24 19:00 | PC.NURSE ---
REPORT BEING GIVEN TO LING CHAN RN
[2017-10-25] VITALS (18 sets, daily range): BP systolic 59–192; BP diastolic 29–78; PULSE 45–70; RESP 16–20; TEMP 36.6–36.9; O2SAT 93–97
--- NOTE | 2017-10-25 03:55 | PC.NURSE ---
RN MADE AWARE OF VITALS AT O400
--- NOTE | 2017-10-25 04:21 | PC.NURSE ---
PT HAS RESTED BETTER THIS EVENING. TOOK SLEEPING PILL AND ANXIETY MED FOR REST, MEDICATION HAS BEEN EFFECTIVE. LAST BP READING WAS ELEVATED AT @ 0346, 192/66. PT LYING IN BED RESTING. NO C/O VOICED AT THIS TIME, DAUGHTER AT PT BEDSIDE. PT CONTINUES TO INTERMITTENTLY BECOME BRADYCARDIAC WITH REST, HEART RATE DROPS INTO 40'S. LOWEST RECORDED HR THIS SHIFT IS 46, PT SINUS RIGOBERTO WITH 1ST DEGREE AVHB ON MONITOR. DENIES FREQUENCY, BURNING OR DYSURIA. NO C/O OF PAIN OR DISCOMFORT EXPRESSED THIS SHIFT. IV PATENT, NO REDNESS OR EDEMA NOTED AROUND SITE, DRG SECURE AND INTACT. PT EDUCATED ON POC, MEDICATIONS, SAFETY, PAIN AND INTERVENTIONS, AND CALL LIGHT.
[2017-10-25 05:29] LABS: Basophils % 0.6 % (0.1-2.0); Eosinophils # 0.7 K/mm3 (0.0-0.4); Eosinophils % 9.3 % (0.1-12.0); Hematocrit 38.4 % (37.0-47.0); Hemoglobin 12.5 g/dL (12.2-16.2); Lymphocytes # 1.6 K/mm3 (0.7-4.5); Lymphocytes % 22.2 K/mm3 (10-50); Mean Corpuscular HGB Conc 32.5 g/dL (31.8-35.4); Mean Corpuscular Hemoglobin 28.5 pg (27.0-31.2); Mean Corpuscular Volume 87.7 fl (81-99); Mean Platelet Volume 6.5 fl (7.4-10.4); Monocytes # 0.9 K/mm3 (0.1-1.0); Monocytes % 11.7 % (1.7-9.3); Neutrophils # 4.1 K/mm3 (1.8-7.8); Neutrophils % 56.2 % (37.0-80.0); Platelet Count 369 K/mm3 (142-424); Red Blood Count 4.38 M/mm3 (4.20-5.40); Red Cell Distribution Width 12.1 % (11.5-17.5); White Blood Count 7.3 K/mm3 (4.8-10.8)
[2017-10-25 05:30] LABS: Anion Gap 12.2 mEq/L (5-15); Blood Urea Nitrogen 30 mg/dL (7-18); Carbon Dioxide 28 mmol/L (21.0-32.0); Chloride 93 mmol/L (98-107); Creatinine Clearance Estimated 36 mL/min (0-300); Creatinine,Serum 1.38 mg/dL (0.55-1.02); Estimated Glomerular Filt Rate 37 ml/min (>60); GFR (African American) 45 ML/MIN (>60); Glucose 110 mg/dL (74-106); Potassium 4.2 mmoL/L (3.5-5.1); Sodium 129 mmol/L (136-145)
--- NOTE | 2017-10-25 07:25 | PC.NURSE ---
HANDOFF REPORT GIVEN TO Peewee LUCERO RN
--- NOTE | 2017-10-25 07:31 | PC.NURSE ---
REPORT GIVEN TO Clayton SIMS W/C
--- NOTE | 2017-10-25 08:08 | P.PN_ITS ---
Internal Medicine - PN: Subj *Date: 10/25/17 *Time: 08:06 Interval history: REsted better last night. Had episode of lightheadedness once yesterday associated with hypotension. Exam Vital signs and Labs for Last 24 Hours: Temp Pulse Resp BP Pulse Ox 98.0 F 66 20 174/75 97 10/25/17 07:34 10/25/17 07:34 10/25/17 07:34 10/25/17 07:34 10/25/17 07:34 Laboratory Results - last 24 hr 10/24/17 14:47: Urine Color Yellow, Urine Appearance Clear, Urine pH 6.0, Ur Specific [place] <= 1.005, Urine Protein Negative, Urine Glucose (UA) Negative, Urine Ketones Negative, Urine Blood Negative, Urine Nitrate Negative, Urine Bilirubin Negative, Urine Urobilinogen 0.2, Ur Leukocyte Esterase Negative, Urine WBC 3-5, Ur Squamous Epith Cells 3-5, Urine Bacteria Trace 10/25/17 05:12: WBC 7.3, RBC 4.38, Hgb 12.5, Hct 38.4, MCV 87.7, MCH 28.5, MCHC 32.5, RDW 12.1, Plt Count 369, MPV 6.5 L, Neut % (Auto) 56.2, Lymph % (Auto) 22.2, [place] % (Auto) 11.7 H, Eos % (Auto) 9.3, Baso % (Auto) 0.6, Neut # (Auto) 4.1, Lymph # (Auto) 1.6, [place] # (Auto) 0.9, Eos # (Auto) 0.7 H, Baso # (Auto) 0.0 10/25/17 05:12: Sodium 129 L, Potassium 4.2, Chloride 93 L, Carbon Dioxide 28, Anion Gap 12.2, BUN 30 H, Creatinine 1.38 H, Estimated Creat Clear 36, Estimated GFR 37 L, Est GFR ( Amer) 45 L, Glucose 110 H I & O for Last 24 hours: Intake & Output 10/22/17 10/23/17 10/24/17 10/25/17 11:59 11:59 11:59 11:59 Intake Total 250 / 250 850 / 850 1230 / 1230 20 / 20 Output Total 800 / 800 200 / 200 325 / 325 300 / 300 Balance -550 / -550 650 / 650 905 / 905 -280 / -280 Weight 160 lb 3 oz 159 lb 8 oz 156 lb 4 oz - Constitutional no acute distress - *Routine Respiratory Exam Present: CTA bilaterally - *Routine Cardiovascular Exam Present: RRR Assessment and Plan (1) Malignant hypertension Current visit: Yes Status: Acute Category: Medical Code(s): I10 - Essential (primary) hypertension (2) Hyperlipidemia Current visit: Yes Status: Acute Category: Medical Code(s): E78.5 - Hyperlipidemia, unspecified (3) Paroxysmal atrial fibrillation Current visit: Yes Status: Acute Category: Medical Code(s): I48.0 - Paroxysmal atrial fibrillation (4) Hyponatremia Current visit: Yes Status: Acute Category: Medical Code(s): E87.1 - Hypo- osmolality and hyponatremia (5) Hypothyroidism Current visit: Yes Status: Acute Category: Medical Code(s): E03.9 - Hypothyroidism, unspecified (6) Bradycardia Current visit: Yes Status: Acute Category: Medical Code(s): R00.1 - Bradycardia, unspecified (7) Cardiac dysrhythmia Current visit: Yes Status: Acute Category: Medical Code(s): I49.9 - Cardiac arrhythmia, unspecified (8) Hypomagnesemia Current visit: Yes Status: Acute Category: Medical Code(s): E83.42 - Hypomagnesemia - Assessment and plan all Dx Assessment and Plan for all problems:: [place] held yesterday and today in preparation for pacemaker tomorrow.
--- NOTE | 2017-10-25 09:20 | HMH.PNCARD ---
Subjective Date: 10/25/17 Time: 09:21 Principal diagnosis: Bradycardia Interval history: 81 yo WF in bed in NAD. She continues with intermittent bradycardia into the 20's despite decreased clonidine and being off beta daniella. Telemetry shows sinus rhythm with first degree AV block and bradycardia. BP has been difficult to control due to bradycardia. Pt has history of A. fib for which she is on flecainide and has been referred for ablation therapy in the past (not performed due to intermittent nature of A. fib, per patient). Cardiology asked to see again for consideration of pacemaker. Exam Vital signs and Labs for Last 24 Hours: Temp Pulse Resp BP Pulse Ox 98.0 F 66 20 174/75 97 10/25/17 07:34 10/25/17 07:34 10/25/17 07:34 10/25/17 07:34 10/25/17 07:34 Laboratory Results - last 24 hr 10/24/17 14:47: Urine Color Yellow, Urine Appearance Clear, Urine pH 6.0, Ur Specific [place] <= 1.005, Urine Protein Negative, Urine Glucose (UA) Negative, Urine Ketones Negative, Urine Blood Negative, Urine Nitrate Negative, Urine Bilirubin Negative, Urine Urobilinogen 0.2, Ur Leukocyte Esterase Negative, Urine WBC 3-5, Ur Squamous Epith Cells 3-5, Urine Bacteria Trace 10/25/17 05:12: WBC 7.3, RBC 4.38, Hgb 12.5, Hct 38.4, MCV 87.7, MCH 28.5, MCHC 32.5, RDW 12.1, Plt Count 369, MPV 6.5 L, Neut % (Auto) 56.2, Lymph % (Auto) 22.2, [place] % (Auto) 11.7 H, Eos % (Auto) 9.3, Baso % (Auto) 0.6, Neut # (Auto) 4.1, Lymph # (Auto) 1.6, [place] # (Auto) 0.9, Eos # (Auto) 0.7 H, Baso # (Auto) 0.0 10/25/17 05:12: Sodium 129 L, Potassium 4.2, Chloride 93 L, Carbon Dioxide 28, Anion Gap 12.2, BUN 30 H, Creatinine 1.38 H, Estimated Creat Clear 36, Estimated GFR 37 L, Est GFR ( Amer) 45 L, Glucose 110 H I & O for Last 24 hours: Intake & Output 10/22/17 10/23/17 10/24/17 10/25/17 11:59 11:59 11:59 11:59 Intake Total 250 / 250 850 / 850 1230 / 1230 Output Total 800 / 800 200 / 200 325 / 325 300 / 300 Balance -550 / -550 650 / 650 905 / 905 -280 / -280 Weight 160 lb 3 oz 159 lb 8 oz 156 lb 4 oz - *Routine Respiratory Exam Present: CTA bilaterally - *Routine Cardiovascular Exam Present: bradycardia Progress Note: A&P (1) Malignant hypertension Status: Acute Current Visit: Yes (2) Hyperlipidemia Status: Acute Current Visit: Yes (3) Paroxysmal atrial fibrillation Status: Acute Current Visit: Yes (4) Hyponatremia Status: Acute Current Visit: Yes (5) Hypothyroidism Status: Acute Current Visit: Yes (6) Bradycardia Status: Acute Assessment and plan: Patient has Sick sinus syndrome (history of A. fib on flecainide and now with intermittent bradycardia into the 20's on low dose clonidine with labile hypertension). Discussed risks and benefits of pacemaker with patient and family, she agrees to proceed with placement tomorrow. Hold Xarelto today. Current Visit: Yes
--- NOTE | 2017-10-25 09:26 | P.PN_ITS ---
Subjective Date: 10/25/17 Time: 09:21 Principal diagnosis: Bradycardia Interval history: 81 yo WF in bed in NAD. She continues with intermittent bradycardia into the 20' s despite decreased clonidine and being off beta daniella. Telemetry shows sinus rhythm with first degree AV block and bradycardia. BP has been difficult to control due to bradycardia. Pt has history of A. fib for which she is on flecainide and has been referred for ablation therapy in the past (not performed due to intermittent nature of A. fib, per patient). Cardiology asked to see again for consideration of pacemaker. Exam Vital signs and Labs for Last 24 Hours: Temp Pulse Resp BP Pulse Ox 98.0 F 66 20 174/75 97 10/25/17 07:34 10/25/17 07:34 10/25/17 07:34 10/25/17 07:34 10/25/17 07:34 Laboratory Results - last 24 hr 10/24/17 14:47: Urine Color Yellow, Urine Appearance Clear, Urine pH 6.0, Ur Specific [place] <= 1.005, Urine Protein Negative, Urine Glucose (UA) Negative, Urine Ketones Negative, Urine Blood Negative, Urine Nitrate Negative, Urine Bilirubin Negative, Urine Urobilinogen 0.2, Ur Leukocyte Esterase Negative, Urine WBC 3-5, Ur Squamous Epith Cells 3-5, Urine Bacteria Trace 10/25/17 05:12: WBC 7.3, RBC 4.38, Hgb 12.5, Hct 38.4, MCV 87.7, MCH 28.5, MCHC 32.5, RDW 12.1, Plt Count 369, MPV 6.5 L, Neut % (Auto) 56.2, Lymph % (Auto) 22.2, [place] % (Auto) 11.7 H, Eos % (Auto) 9.3, Baso % (Auto) 0.6, Neut # (Auto) 4.1, Lymph # (Auto) 1.6, [place] # (Auto) 0.9, Eos # (Auto) 0.7 H, Baso # (Auto) 0.0 10/25/17 05:12: Sodium 129 L, Potassium 4.2, Chloride 93 L, Carbon Dioxide 28, Anion Gap 12.2, BUN 30 H, Creatinine 1.38 H, Estimated Creat Clear 36, Estimated GFR 37 L, Est GFR ( Amer) 45 L, Glucose 110 H I & O for Last 24 hours: Intake & Output 10/22/17 10/23/17 10/24/17 10/25/17 11:59 11:59 11:59 11:59 Intake Total 250 / 250 850 / 850 1230 / 1230 Output Total 800 / 800 200 / 200 325 / 325 300 / 300 Balance -550 / -550 650 / 650 905 / 905 -280 / -280 Weight 160 lb 3 oz 159 lb 8 oz 156 lb 4 oz - *Routine Respiratory Exam Present: CTA bilaterally - *Routine Cardiovascular Exam Present: bradycardia Progress Note: A&P (1) Malignant hypertension Status: Acute Current Visit: Yes (2) Hyperlipidemia Status: Acute Current Visit: Yes (3) Paroxysmal atrial fibrillation Status: Acute Current Visit: Yes (4) Hyponatremia Status: Acute Current Visit: Yes (5) Hypothyroidism Status: Acute Current Visit: Yes (6) Bradycardia Status: Acute Assessment and plan: Patient has Sick sinus syndrome (history of A. fib on flecainide and now with intermittent bradycardia into the 20's on low dose clonidine with labile hypertension). Discussed risks and benefits of pacemaker with patient and family , she agrees to proceed with placement tomorrow. Hold Xarelto today. Current Visit: Yes
--- NOTE | 2017-10-25 10:58 | PC.NURSE ---
1011 PATIENT RANG HER CALL LIGHT AND ASKED FOR HER NURSE. UPON ENTERING ROOM PATIENT TOLD ME SHE WAS NOT FEELING GOOD, NAUSEATED, FEELS FLUSHED, AND HER HEAD FEEL FOGGY. VITALS WERE TAKEN AT THIS TIME AND PATIENT WAS FOUND TO HAVE A BP OF 81/39 HR 61. 1015 PATIENT FEELS THE SAME NO BETTER NO WORSE. CYCLED BP AGAIN WITH A BP OF 72/32. LOWER HOB AND RAISED FOOT OF BED AT THIS TIME. REMAINING AT BEDSIDE WITH PATIENT AT THIS TIME 1020 NO CHANGE BP CYCLED FOUND TO BE 68/31 WITH HR OF 53 - ASKED SRNA TO BRING ME A MANUAL BP CUFF AT THIS TIME. CALLED CARDIOLOGY OFFICE WHO STATES [facility] WILL CALL BACK WHEN THEY GET HIM 1025 NO CHANGE BP CYCLED FOUND TO BE 63/29 IN LEFT ARM WITH AUTOMATIC CUFF AND RIGHT ARM 66/38 WITH MANUAL CUFF. STARTED NS BOLUS AT THIS TIME 1030 BP CYCLED AT 59/31 1033 BP CYCLED AT 79/41 1035 PATIENT STATES SHE IS STARTING TO FEEL A LITTLE BETTER BUT IS STILL VERY SHAKY. BP CYCLED AT 112/52. PER KANNAN GIVE 500ML NS BOLUS AND START FLUIDS AT A RATE OF 100ML/HR FOR 5 HOURS. ALSO HOLD 1300 DONSE OF HYDRALAZINE 1050 RN REMAINED AT PATIENT BEDSIDE UNTIL PATIENT FELT COMFORTABLE BEING ALONE. BP CYCLED AT 137/59 1110 CHECKED IN WITH PATIENT SHE STATES SHE IS FEELING MUCH BETTER JUST A LITTLE SHAKY. BP CYCLED AT 148/64 WILL CONTINUE TO MONITOR CLOSELY
--- NOTE | 2017-10-25 18:04 | DIET.NUTRFU ---
PO intakes avg 75% of meals on cardiac diet. Weight continues to decrease. admit wt 165 lbs, current wt 156 lbs. Awaiting pacemaker. Will monitor.
[2017-10-26] VITALS (21 sets, daily range): BP systolic 109–177; BP diastolic 53–91; PULSE 50–98; RESP 12–21; TEMP 36.4–37.2; O2SAT 95–99
--- NOTE | 2017-10-26 | XR_ITS ---
XR pacemaker defibrillator CLINICAL INDICATION: Pacemaker insertion ORDERING PHYSICIAN: French Blackwell MD PATIENT AGE: 81 years COMPARISON: None Fluoroscopy time: 5 minutes and 33 seconds FINDINGS: Fluoroscopy utilized for pacemaker placement. IMPRESSION: Status post pacemaker insertion
--- NOTE | 2017-10-26 03:17 | PC.NURSE ---
Patient laying in bed resting daughter laying at bedside. Patient was anxious at beginning of shift. After giving 2100 meds and Vistaril anxiety relieved. Last b/p was 152/64, PULSE 65. Has rest well most of shift. Ambulated to restroom with standby assist. Tolerated well. Request to take a shower this a.m. States wants to make sure there is no germs before procedure. Will sign consent form this a.m when patient wakes.IV is patent, is needing changed due to policy. Pt refuses to allow nurse to change it. Educated pt on s/sx of infection. Verbalized understanding. Lungs are clear throughout, resp even and nonlabored. Denies any needs at this time. Bed locked in low position, side rails up x 2, call light within reach. Will continue to monitor.
--- NOTE | 2017-10-26 07:50 | PC.NURSE ---
Discussed AM medications with Willem BILLINGS. Ok to administer all AM meds except Hydralazine.
--- NOTE | 2017-10-26 07:51 | PC.NURSE ---
0715 - Report received from Darius Retana RN
--- NOTE | 2017-10-26 08:20 | P.PN_ITS ---
Internal Medicine - PN: Subj *Date: 10/26/17 *Time: 08:18 Interval history: Rested OK last night. Ready to proceed with pacemaker today Exam Vital signs and Labs for Last 24 Hours: Temp Pulse Resp BP Pulse Ox 97.9 F 75 18 177/71 96 10/26/17 07:50 10/26/17 07:50 10/26/17 07:50 10/26/17 07:50 10/26/17 07:50 I & O for Last 24 hours: Intake & Output 10/23/17 10/24/17 10/25/17 10/26/17 11:59 11:59 11:59 11:59 Intake Total 850 / 850 1230 / 1230 20 / 20 1030 / 1030 Output Total 200 / 200 325 / 325 300 / 300 Balance 650 / 650 905 / 905 -280 / -280 1030 / 1030 Weight 159 lb 8 oz 156 lb 4 oz - Constitutional no acute distress - *Routine Respiratory Exam Present: CTA bilaterally - *Routine Cardiovascular Exam Present: RRR Assessment and Plan (1) Malignant hypertension Current visit: Yes Status: Acute Category: Medical Code(s): I10 - Essential (primary) hypertension (2) Hyperlipidemia Current visit: Yes Status: Acute Category: Medical Code(s): E78.5 - Hyperlipidemia, unspecified (3) Paroxysmal atrial fibrillation Current visit: Yes Status: Acute Category: Medical Code(s): I48.0 - Paroxysmal atrial fibrillation (4) Hyponatremia Current visit: Yes Status: Acute Category: Medical Code(s): E87.1 - Hypo- osmolality and hyponatremia (5) Hypothyroidism Current visit: Yes Status: Acute Category: Medical Code(s): E03.9 - Hypothyroidism, unspecified (6) Bradycardia Current visit: Yes Status: Acute Category: Medical Code(s): R00.1 - Bradycardia, unspecified (7) Cardiac dysrhythmia Current visit: Yes Status: Acute Category: Medical Code(s): I49.9 - Cardiac arrhythmia, unspecified (8) Hypomagnesemia Current visit: Yes Status: Acute Category: Medical Code(s): E83.42 - Hypomagnesemia - Assessment and plan all Dx Assessment and Plan for all problems:: For pacemaker placement today.
--- NOTE | 2017-10-26 09:00 | HMH.PNCARD ---
Subjective Date: 10/26/17 Time: 07:45 Principal diagnosis: Bradycardia Interval history: No complaints overnight. Rested well. Anxious but ready for pacemaker. Some transient low BP yesterday that responded quickly to IVF. Exam Vital signs and Labs for Last 24 Hours: Temp Pulse Resp BP Pulse Ox 97.9 F 75 18 177/71 96 10/26/17 07:50 10/26/17 07:50 10/26/17 07:50 10/26/17 07:50 10/26/17 07:50 I & O for Last 24 hours: Intake & Output 10/23/17 10/24/17 10/25/17 10/26/17 11:59 11:59 11:59 11:59 Intake Total 850 / 850 1230 / 1230 20 / 20 1030 / 1030 Output Total 200 / 200 325 / 325 300 / 300 Balance 650 / 650 905 / 905 -280 / -280 1030 / 1030 Weight 159 lb 8 oz 156 lb 4 oz - *Routine Respiratory Exam Present: CTA bilaterally - *Routine Cardiovascular Exam Present: RRR Progress Note: A&P (1) Malignant hypertension Status: Acute Assessment and plan: Labile control due to inability to tolerate beta blockers due to transient bradycardia. Pacemaker for SSS. Current Visit: Yes (2) Hyperlipidemia Status: Acute Current Visit: Yes (3) Paroxysmal atrial fibrillation Status: Acute Current Visit: Yes (4) Hyponatremia Status: Acute Current Visit: Yes (5) Hypothyroidism Status: Acute Current Visit: Yes (6) Bradycardia Status: Acute Current Visit: Yes
--- NOTE | 2017-10-26 13:19 | HMH.ANESCL ---
[facility] Anesthesia Checklist - Structural Data Admitted From: Home Planned Operative Procedure/s: pacemaker Consent for Planned Operative Procedure(s) Verified: Yes Verified Documents: Surgical Consent - Airway Assessment C-Spine Mobility Assessed: Yes TMJ Mobility Assessed: Yes Dentition: Dentures-good fit - Neurological Assessment Level of Consciousness: Awake, Alert - Anesthesia Plan Anesthesia Risk discussed: Yes Anesthesia Plan: Verified ASA Class: III Anesthesia Type: [facility] Anesthesia HX I have reviewed the patient's past medical history: Yes Medical History: Reports:: Atrial Fibrillation, Hyperlipidemia, Hypertension Denies:: Cancer, Coronary Artery Disease, Cerebrovascular Accident, Diabetes Mellitus Type 1, Diabetes Mellitus Type 2, MRSA Other Medical History: Reports: Anemia, Arthritis, Sinus Problems Other Surgeries: Yes: Cardiac Catheterization, Colonoscopy, EGD Amputation: No *Family Hx:: Heart Attack, Hyperlipidemia
--- NOTE | 2017-10-26 13:20 | HMH.ANESI ---
[facility] Anesthesia Record Part I Intake, IV Amount: 800 Estimated blood loss (mL): 20 Urine output (mL): 0 Blood Pressure: 159/88 SaO2: 98 Pulse Rate: 98 Respiratory Rate: 12 Temperature: 98 F Patient is:: Awake, Stable Stable to PACU at:: 13:15
--- NOTE | 2017-10-26 13:21 | P.PN_ITS ---
[facility] Anesthesia Record Part II Discharge Time: 13:45 Destination: [facility] PACU nurse assessment reviewed?: Yes Patient Condition:: Good Anesthesia Complications:: None
--- NOTE | 2017-10-26 13:21 | HMH.ANESII ---
[facility] Anesthesia Record Part II Discharge Time: 13:45 [address]ination: [facility] PACU nurse assessment reviewed?: Yes Patient Condition:: Good Anesthesia Complications:: None
--- NOTE | 2017-10-26 13:24 | XR_ITS ---
XR chest portable HISTORY: Follow-up pacemaker placement ITS.REASON: s/p pacemaker pt in pacu ORDERING PHYSICIAN: French Blackwell MD PATIENT AGE: 81 years COMPARISON: 10/14/2017. FINDINGS: There is a bipolar pacer present in the left subclavian approach with leads in good position. No evidence of pneumothorax. No lobar consolidation or collapse. Minimal opacity is noted of the right midlung at the third rib anteriorly may be due to summation artifact. IMPRESSION: Status post pacemaker placement without complication
--- NOTE | 2017-10-26 14:10 | PC.NURSE ---
1351 - Pt arrived to room 219 via bed in NAD. Pt A&Ox3. VSS. Afebrile. (L) chest drsg. CDI. Heart rate reg. Lungs CTA. Abd soft & non-tender /c active BS x4 quads. (L) arm in sling. Pt reports pain 1/10 to (L) chest. Pt instructed on pain management and not to let pain get away from her. Pt verbalizes understanding. (L) wrist IV saline locked. No s/s of infiltration. Will continue to monitor.
--- NOTE | 2017-10-26 14:25 | PC.NURSE ---
2170-radiology at bedside
--- NOTE | 2017-10-26 14:28 | PC.NURSE ---
1343-detailed report called to Aretha Raza RN 1345-Pt transported 2nd floor room 219 via hospital bed per H.RAFAEL Roper and RAFAEL Schrader. VSS. Pt stable upon discharge.
--- NOTE | 2017-10-26 19:21 | PC.NURSE ---
Report given to Darius Retana RN
[2017-10-27] VITALS: BP 126/64; PULSE 70; PULSE 72; RESP 16; TEMP 36.9; O2SAT 95
--- NOTE | 2017-10-27 01:59 | PC.NURSE ---
Patient in bed resting at this time. Just laid back down, was up to bsc. Had some nausea and felt a little off balance when getting up. Stated nausea gone after returning to bed. Has remained paced on Telemetry . Has had pain medication one time this shift. Has some blood on dressing of surgical site. No signs of active bleeding now. Denies pain at this time. Lungs are clear, resp even and non labored. Has slept well most of shift. Encouraged to notify RN of any pain, nausea. Call light within reach, bed locked in low position, side rails up x 2. Daughter at bedside.
[2017-10-27 04:00] VITALS: BP 128/61; PULSE 70; PULSE 74; RESP 16; TEMP 36.9; O2SAT 95
[2017-10-27 08:00] VITALS: BP 123/50; PULSE 70; RESP 20; TEMP 36.9; O2SAT 95
--- NOTE | 2017-10-27 08:12 | HMH.ACPN2 ---
<Kalie Conrad - Last Filed: 10/27/17 08:12> Internal Medicine - PN: Subj *Date: 10/27/17 *Time: 08:12 Interval history: Patient states she is feeling better today. She had a pacemaker placed yesterday and did well. Her blood pressure and heart rate have been stable. She slept off and on and ate this morning. Exam Vital signs and Labs for Last 24 Hours: Temp Pulse Resp BP Pulse Ox 98.5 F 74 16 128/61 95 10/27/17 04:00 10/27/17 04:00 10/27/17 04:00 10/27/17 04:00 10/27/17 04:00 I & O for Last 24 hours: Intake & Output 10/24/17 10/25/17 10/26/17 10/27/17 11:59 11:59 11:59 11:59 Intake Total 1230 / 1230 20 / 20 1030 / 1030 1305 / 1305 Output Total 325 / 325 300 / 300 Balance 905 / 905 -280 / -280 1030 / 1030 1305 / 1305 Weight 156 lb 4 oz 158 lb 6.434 oz - Constitutional no acute distress - *Routine Respiratory Exam Present: CTA bilaterally - *Routine Cardiovascular Exam Present: RRR - *Routine Abdominal Exam Present: soft, normoactive bowel sounds. Absent: tenderness - *Routine Extremities Exam Absent: edema Assessment and Plan (1) Malignant hypertension Current visit: Yes Status: Acute Category: Medical Code(s): I10 - Essential (primary) hypertension (2) Hyperlipidemia Current visit: Yes Status: Acute Category: Medical Code(s): E78.5 - Hyperlipidemia, unspecified (3) Paroxysmal atrial fibrillation Current visit: Yes Status: Acute Category: Medical Code(s): I48.0 - Paroxysmal atrial fibrillation (4) Hyponatremia Current visit: Yes Status: Acute Category: Medical Code(s): E87.1 - Hypo-osmolality and hyponatremia (5) Hypothyroidism Current visit: Yes Status: Acute Category: Medical Code(s): E03.9 - Hypothyroidism, unspecified (6) Bradycardia Current visit: Yes Status: Acute Category: Medical Code(s): R00.1 - Bradycardia, unspecified (7) Cardiac dysrhythmia Current visit: Yes Status: Acute Category: Medical Code(s): I49.9 - Cardiac arrhythmia, unspecified (8) Hypomagnesemia Current visit: Yes Status: Acute Category: Medical Code(s): E83.42 - Hypomagnesemia (9) S/P placement of cardiac pacemaker Current visit: Yes Status: Acute Category: Surgical Code(s): Z95.0 - Presence of cardiac pacemaker - Assessment and plan all Dx Assessment and Plan for all problems:: Patient doing well. Cardiology to follow. Will discuss further care with Dr. Blackwell. <French Blackwell - Last Filed: 10/27/17 09:21> Internal Medicine - PN: Subj *Date: 10/27/17 *Time: 09:20 Exam Vital signs and Labs for Last 24 Hours: Temp Pulse Resp BP Pulse Ox 98.5 F 70 20 123/50 95 10/27/17 08:00 10/27/17 08:00 10/27/17 08:00 10/27/17 08:00 10/27/17 08:00 I & O for Last 24 hours: Intake & Output 10/24/17 10/25/17 10/26/17 10/27/17 11:59 11:59 11:59 11:59 Intake Total 1230 / 1230 20 / 20 1030 / 1030 1545 / 1545 Output Total 325 / 325 300 / 300 Balance 905 / 905 -280 / -280 1030 / 1030 1545 / 1545 Weight 156 lb 4 oz 158 lb 6.434 oz Assessment and Plan (1) Malignant hypertension Current visit: Yes Status: Acute Category: Medical Code(s): I10 - Essential (primary) hypertension (2) Hyperlipidemia Current visit: Yes Status: Acute Category: Medical Code(s): E78.5 - Hyperlipidemia, unspecified (3) Paroxysmal atrial fibrillation Current visit: Yes Status: Acute Category: Medical Code(s): I48.0 - Paroxysmal atrial fibrillation (4) Hyponatremia Current visit: Yes Status: Acute Category: Medical Code(s): E87.1 - Hypo-osmolality and hyponatremia (5) Hypothyroidism Current visit: Yes Status: Acute Category: Medical Code(s): E03.9 - Hypothyroidism, unspecified (6) Bradycardia Current visit: Yes Status: Acute Category: Medical Code(s): R00.1 - Bradycardia, unspecified (7) Cardiac dysrhythmia Current visit: Yes St
--- NOTE | 2017-10-27 08:21 | HMH.DCSUM ---
General - General Admission date: 10/14/17 Objective Vital signs: Temp Pulse Resp BP Pulse Ox 98.5 F 74 16 128/61 95 10/27/17 04:00 10/27/17 04:00 10/27/17 04:00 10/27/17 04:00 10/27/17 04:00 DS: Diagnosis - Discharge Diagnosis (1) Malignant hypertension Status: Acute (2) Hyperlipidemia Status: Chronic (3) Paroxysmal atrial fibrillation Status: Acute (4) Hyponatremia Status: Acute (5) Hypothyroidism Status: Chronic (6) Bradycardia Status: Acute (7) Cardiac dysrhythmia Status: Acute (8) Hypomagnesemia Status: Acute Discharge Plan - Patient Discharge Instructions ACTIVITY: Continue current activity DIET: continue same diet Patient Instructions: DI for Pacemaker Insertion, DI for Malignant Hypertension, MP3 (iPod) Headphones Near ICD or Pacemaker May Cause Problems, DI for Surgical Site Infection, Surgical Site Infection, Low-Sodium Diet - Follow up Plan Follow up with: French Blackwell MD [Primary Care Provider] - 11/05/17 Milo Pavon MD [Staff Physician] - 1 week Disposition: Home Health Service Home Medications: Home Medications Medication Instructions Recorded Confirmed Type Atorvastatin Calcium [Atorvastatin 10 mg PO DAILY 10/14/17 10/14/17 History 10mg Tab] Calcium Carbonate/Vitamin D3 1 each PO DAILY 10/14/17 10/14/17 History [Calcium 600 + Vit D 400 Softgl] Cholecalciferol (Vitamin D3) 1,000 unit PO DAILY 10/14/17 10/14/17 History [Vitamin D3 1,000 Unit Cap] Flecainide Acetate 100 mg PO BID 10/14/17 10/14/17 History Lansoprazole 30 mg PO DAILY 10/14/17 10/14/17 History Lisinopril [Lisinopril 20mg Tab] 20 mg PO BID 10/14/17 10/14/17 History Multivitamin [Multivitamins] 1 each PO DAILY 10/14/17 10/14/17 History [place]-3S/Dha/Epa/Fish Oil [Fish 1 each PO BID 10/14/17 10/14/17 History Oil 1,200 mg Softgel] Rivaroxaban [Xarelto] 20 mg PO DAILY 10/14/17 10/14/17 History Prescriptions/Medication Reconciliation: New Tramadol HCl [Ultram 50mg tablet] 50 mg PO Q6HP PRN #30 tab PRN Reason: Moderate Pain Amlodipine Besylate [Norvasc 5mg tablet] 5 mg PO DAILY #30 tab Hydralazine HCl [Hydralazine HCl 25mg Tablet] 25 mg PO BID 2 Days #60 tab Levothyroxine Sodium [Synthroid 25mcg (0.025mg) tablet] 25 mcg PO DAILYDM #30 tab Magnesium Oxide [Mag-Ox 400mg Tab] 400 mg PO BID #60 tab Triamterene/Hydrochlorothiazid [Maxzide-25 tablet] 1 each PO DAILY #30 tab Continue Lansoprazole 30 mg PO DAILY Cholecalciferol (Vitamin D3) [Vitamin D3 1,000 Unit Cap] 1,000 unit PO DAILY Lisinopril [Lisinopril 20mg Tab] 20 mg PO BID Rivaroxaban [Xarelto] 20 mg PO DAILY [place]-3S/Dha/Epa/Fish Oil [Fish Oil 1,200 mg Softgel] 1 each PO BID Multivitamin [Multivitamins] 1 each PO DAILY Flecainide Acetate 100 mg PO BID Calcium Carbonate/Vitamin D3 [Calcium 600 + Vit D 400 Softgl] 1 each PO DAILY Atorvastatin Calcium [Atorvastatin 10mg Tab] 10 mg PO DAILY Discontinued hydroCHLOROthiazide [HCTZ 25mg tab] 25 mg PO DAILY Cefdinir [Omnicef 300mg Capsule] 300 mg PO BID cloNIDine HCl [cloNIDine 0.2mg Tablet] 0.2 mg PO BID No Action carvedilol 12.5 mg tablet 12.5 mg PO BID #60 tab
--- NOTE | 2017-10-27 08:25 | P.DS_ITS ---
General - General Admission date: 10/14/17 Objective Vital signs: Temp Pulse Resp BP Pulse Ox 98.5 F 74 16 128/61 95 10/27/17 04:00 10/27/17 04:00 10/27/17 04:00 10/27/17 04:00 10/27/17 04:00 DS: Diagnosis - Discharge Diagnosis (1) Malignant hypertension Status: Acute (2) Hyperlipidemia Status: Chronic (3) Paroxysmal atrial fibrillation Status: Acute (4) Hyponatremia Status: Acute (5) Hypothyroidism Status: Chronic (6) Bradycardia Status: Acute (7) Cardiac dysrhythmia Status: Acute (8) Hypomagnesemia Status: Acute Discharge Plan - Patient Discharge Instructions ACTIVITY: Continue current activity DIET: continue same diet Patient Instructions: DI for Pacemaker Insertion, DI for Malignant Hypertension , MP3 (iPod) Headphones Near ICD or Pacemaker May Cause Problems, DI for Surgical Site Infection, Surgical Site Infection, Low-Sodium Diet - Follow up Plan Follow up with: French Blackwell MD [Primary Care Provider] - 11/05/17 Milo Pavon MD [Staff Physician] - 1 week Disposition: Home Health Service Home Medications: Home Medications Medication Instructions Recorded Confirmed Type Atorvastatin Calcium [Atorvastatin 10 mg PO DAILY 10/14/17 10/14/17 History 10mg Tab] Calcium Carbonate/Vitamin D3 1 each PO DAILY 10/14/17 10/14/17 History [Calcium 600 + Vit D 400 Softgl] Cholecalciferol (Vitamin D3) 1,000 unit PO DAILY 10/14/17 10/14/17 History [Vitamin D3 1,000 Unit Cap] Flecainide Acetate 100 mg PO BID 10/14/17 10/14/17 History Lansoprazole 30 mg PO DAILY 10/14/17 10/14/17 History Lisinopril [Lisinopril 20mg Tab] 20 mg PO BID 10/14/17 10/14/17 History Multivitamin [Multivitamins] 1 each PO DAILY 10/14/17 10/14/17 History [place]-3S/Dha/Epa/Fish Oil [Fish 1 each PO BID 10/14/17 10/14/17 History Oil 1,200 mg Softgel] Rivaroxaban [Xarelto] 20 mg PO DAILY 10/14/17 10/14/17 History Prescriptions/Medication Reconciliation: New Tramadol HCl [Ultram 50mg tablet] 50 mg PO Q6HP PRN #30 tab PRN Reason: Moderate Pain Amlodipine Besylate [Norvasc 5mg tablet] 5 mg PO DAILY #30 tab Hydralazine HCl [Hydralazine HCl 25mg Tablet] 25 mg PO BID 2 Days #60 tab Levothyroxine Sodium [Synthroid 25mcg (0.025mg) tablet] 25 mcg PO DAILYDM # 30 tab Magnesium Oxide [Mag-Ox 400mg Tab] 400 mg PO BID #60 tab Triamterene/Hydrochlorothiazid [Maxzide-25 tablet] 1 each PO DAILY #30 tab Continue Lansoprazole 30 mg PO DAILY Cholecalciferol (Vitamin D3) [Vitamin D3 1,000 Unit Cap] 1,000 unit PO DAILY Lisinopril [Lisinopril 20mg Tab] 20 mg PO BID Rivaroxaban [Xarelto] 20 mg PO DAILY [place]-3S/Dha/Epa/Fish Oil [Fish Oil 1,200 mg Softgel] 1 each PO BID Multivitamin [Multivitamins] 1 each PO DAILY Flecainide Acetate 100 mg PO BID Calcium Carbonate/Vitamin D3 [Calcium 600 + Vit D 400 Softgl] 1 each PO DAILY Atorvastatin Calcium [Atorvastatin 10mg Tab] 10 mg PO DAILY Discontinued hydroCHLOROthiazide [HCTZ 25mg tab] 25 mg PO DAILY Cefdinir [Omnicef 300mg Capsule] 300 mg PO BID cloNIDine HCl [cloNIDine 0.2mg Tablet] 0.2 mg PO BID No Action carvedilol 12.5 mg tablet 12.5 mg PO BID #60 tab
--- NOTE | 2017-10-27 09:25 | HMH.PNCARD ---
Subjective Date: 10/27/17 Time: 09:25 Principal diagnosis: Bradycardia Interval history: 81 yo WF in NAD. Slept well. BP controlled on current meds. Telemetry shows intermittent pacing with capture. Pacer site with some blood tinge on the gauze and some swelling around the dressing but ok. Exam Vital signs and Labs for Last 24 Hours: Temp Pulse Resp BP Pulse Ox 98.5 F 70 20 123/50 95 10/27/17 08:00 10/27/17 08:00 10/27/17 08:00 10/27/17 08:00 10/27/17 08:00 I & O for Last 24 hours: Intake & Output 10/24/17 10/25/17 10/26/17 10/27/17 11:59 11:59 11:59 11:59 Intake Total 1230 / 1230 20 / 20 1030 / 1030 1545 / 1545 Output Total 325 / 325 300 / 300 Balance 905 / 905 -280 / -280 1030 / 1030 1545 / 1545 Weight 156 lb 4 oz 158 lb 6.434 oz - *Routine Respiratory Exam Present: CTA bilaterally - *Routine Cardiovascular Exam Present: RRR Progress Note: A&P (1) Malignant hypertension Status: Acute Assessment and plan: Controlled on current meds. No changes today. OK for discharge from cardiology standpoint. Current Visit: Yes (2) Hyperlipidemia Status: Acute Current Visit: Yes (3) Paroxysmal atrial fibrillation Status: Acute Assessment and plan: Continue flecainide and resume Xarelto. Current Visit: Yes (4) Hyponatremia Status: Acute Current Visit: Yes (5) Hypothyroidism Status: Acute Current Visit: Yes (6) Bradycardia Status: Acute Assessment and plan: S/P pacer. Will see her back in one week. Limited use of left arm reviewed. Current Visit: Yes
[2017-10-27 09:58] VITALS: RESP 16
--- NOTE | 2017-10-27 11:23 | PC.NURSE ---
PT IS BEING DISCHARGED, FAMILY HAS BEEN ASSISTING PT TO BSC, STATED SHE DID NOT WANT A BATH, SHE IS GOING HOME.
--- NOTE | 2017-10-27 11:33 | PC.NURSE ---
FAMILY AT BEDSIDE, ASSISTING PT TO BSC, URINATED 150 CC.
--- NOTE | 2017-10-27 11:46 | HMH.PACER ---
[facility] Pacemaker - Pacemaker Placement Date of Procedure:: 10/26/17 Time of Procedure:: 11:00 Procedure Performed:: Pocket formation for permanent pacemaker Placement of atrial sensing and pacing lead into the right atrial appendage Placement of ventricular sensing and pacing lead into the right ventricular apex Placement of permanent dual chamber pacemaker Preoperative Diagnosis:: Symptomatic Bradycardia Sick Sinus Syndrome Complications:: None Estimated Blood Loss (ml): 10 Technique:: 1% Lidocaine with epinephrine used to anesthetize the left anterior aspect of the chest.Scalpel was used to make the initial cutaneous incision while electrocautery was used to dissect down into the fascia. The fascia was lifted off the pectoralis muscle and digitally manipulated creating a pocket for the pacemaker. The patient was then placed in Trendelenburg position and the subclavian vein was accessed via the Selinger technique. A 7 Armenian sheath was placed under fluoroscopic guidance into the subclavian vein. Following this, an additional wire was placed into the sheath. Now, with two wires inside the 7 Armenian sheath, this sheath was removed, maintaining the two wires in the subclavian vein. The sheath and dilator was then placed over one of the wires while keeping the other wire in place within the subclavian vein. The dilator was removed from the sheath. Using fluoroscopic guidance, the ventricular lead was placed into the right ventricular apex, screwed and secured into place. Electronic interrogation proved acceptable thresholds and voltage within the lead. Using 3-0 silk, the ventricular lead was then secured into place. Lead was secured to the fascia using the 3-0 silk. Following this, the sheath was pealed away. An additional 7 Armenian fresh sheath and dilator was placed over the existing wire. Using fluoroscopic guidance, the atrial lead was then placed into the right atrial appendage and screwed and secured in place. Electrical interrogation demonstrated acceptable thresholds and voltage numbers. The atrial lead was then secured into place using 3-0 silk and then the lead was finally secured to the fascia. With both the atria and ventricular leads in place with acceptable thresholds and sensitivity, the atrial and ventricular leads were placed into the pacemaker generator. Pacemaker generator was then secured to the fascia using 3-0 silk. 1 gram of Ancef was used to flush the pocket. Following the pacemaker being secured to the fascia and in place, Monocryl was used to close the subcutaneous layers while juanita were used to close the cutaneous layer. A pressure dressing was placed and the patient was transferred to the postop holding area in stable condition for postoperative care. - Interrogation Narrative: P-wave measures 4.5 mV with the threshold of 1 V and lead impedance 585 ohms and pulse width of .4 R- wave measures >25 with the threshold of .5 V and lead impedance 865 ohms and pulse width of .4 DDDR mode with base tracking of 70 maximum track of 110 Generator model number [id number] serial # [id number] Atrial lead model number [id number] serial # [id number] Ventricular lead model number [id number] serial # [id number] Impression:: Successful pocket formation for permanent pacemaker placement Successful placement of atrial sensing pacing lead into the right atrial appendage Successful placement of ventricular sensing pacing lead into the right ventricular apex Successful permanent pacemaker placement Plan: Postoperative wound care
--- NOTE | 2017-10-27 11:49 | P.PCN_ITS ---
[facility] Pacemaker - Pacemaker Placement Date of Procedure:: 10/26/17 Time of Procedure:: 11:00 Procedure Performed:: Pocket formation for permanent pacemaker Placement of atrial sensing and pacing lead into the right atrial appendage Placement of ventricular sensing and pacing lead into the right ventricular apex Placement of permanent dual chamber pacemaker Preoperative Diagnosis:: Symptomatic Bradycardia Sick Sinus Syndrome Complications:: None Estimated Blood Loss (ml): 10 Technique:: 1% Lidocaine with epinephrine used to anesthetize the left anterior aspect of the chest.Scalpel was used to make the initial cutaneous incision while electrocautery was used to dissect down into the fascia. The fascia was lifted off the pectoralis muscle and digitally manipulated creating a pocket for the pacemaker. The patient was then placed in Trendelenburg position and the subclavian vein was accessed via the Selinger technique. A 7 Macedonian sheath was placed under fluoroscopic guidance into the subclavian vein. Following this, an additional wire was placed into the sheath. Now, with two wires inside the 7 Macedonian sheath, this sheath was removed, maintaining the two wires in the subclavian vein. The sheath and dilator was then placed over one of the wires while keeping the other wire in place within the subclavian vein. The dilator was removed from the sheath. Using fluoroscopic guidance, the ventricular lead was placed into the right ventricular apex, screwed and secured into place. Electronic interrogation proved acceptable thresholds and voltage within the lead. Using 3-0 silk, the ventricular lead was then secured into place. Lead was secured to the fascia using the 3-0 silk. Following this, the sheath was pealed away. An additional 7 Macedonian fresh sheath and dilator was placed over the existing wire. Using fluoroscopic guidance, the atrial lead was then placed into the right atrial appendage and screwed and secured in place. Electrical interrogation demonstrated acceptable thresholds and voltage numbers. The atrial lead was then secured into place using 3-0 silk and then the lead was finally secured to the fascia. With both the atria and ventricular leads in place with acceptable thresholds and sensitivity, the atrial and ventricular leads were placed into the pacemaker generator. Pacemaker generator was then secured to the fascia using 3-0 silk. 1 gram of Ancef was used to flush the pocket. Following the pacemaker being secured to the fascia and in place, Monocryl was used to close the subcutaneous layers while juanita were used to close the cutaneous layer. A pressure dressing was placed and the patient was transferred to the postop holding area in stable condition for postoperative care. - Interrogation Narrative: P-wave measures 4.5 mV with the threshold of 1 V and lead impedance 585 ohms and pulse width of .4 R- wave measures >25 with the threshold of .5 V and lead impedance 865 ohms and pulse width of .4 DDDR mode with base tracking of 70 maximum track of 110 Generator model number [id number] serial # [id number] Atrial lead model number [id number] serial # [id number] Ventricular lead model number [id number] serial # [id number] Impression:: Successful pocket formation for permanent pacemaker placement Successful placement of atrial sensing pacing lead into the right atrial appendage Successful placement of ventricular sensing pacing lead into the right ventricular apex Successful permanent pacemaker placement Plan: Postoperative wound care
--- NOTE | 2017-10-27 13:38 | SW/DCPLANNER ---
Order has been placed for patient to have home health services. Family has requested that patient information be faxed to [facility] of . I have spoke with Kristina at [facility] and patient information has been picked up by Kristina at [facility]. Family has requested that Viviana-Nurse and Zeenat-Therapist. Patient discharged home this afternoon.
--- NOTE | 2017-10-30 16:31 | HMH.DCSUM ---
General - General Admission date: 10/14/17 Discharge date: 10/27/17 HPI HPI: Ms. Iverson is an 81 yo WF with a hx of HBP, HLP and paroxysmal AF who is followed regularly by Dr. Walter. For the past week, her BP has been uncontrolled with systolic >200 and diastolic>100. She has been seen in the office on 2 occasions this week with adjustment in her medication and returned yesterday after an episode of light headedness, presyncope and tingling in her face. Her BP remained high. She was admitted for treatment of malignant HBP with IV Nipride. Hospital Course Hospital Course: Her CXR showed mild cardiomegaly, nothing acute. She had a carotid duplex showing less than 20% stenosis involving the right internal carotid artery and the left internal carotid artery. She was weaned off of her nipride drip and started on oral medication . She began having bradycardia, therefore her coreg dose was decreased and she was started on norvasc. She had an echo showing a mildly enlarged left atrium, normal left ventricular size, mild qualitative concentric left ventricular hypertrophy, a visually estimated ejection fraction of 55% with no obvious regional wall motion abnormality, and grade 1 diastolic dysfunction. Her BP was labile throughout most of her stay and she continued to remain bradycardic. The staff noted either a dropped or blocked beat on one of her strips. Cardiology was consulted to see patient mainly in regard to her persistent bradycardia and the dysrhythmia noted on her monitor stip along with any further recommendations regarding her BP. Her Coreg was discontinued and she was started on bisoprolol 5 mg daily. Cardiology saw the patient and discontinued her hydrochlorothiazide and started her on triamterene for more diuretic therapy in light of her elevated left atrial pressure on tissue Doppler echo. They also started her on a Catapres patch 0.4 and planned to wean her off p.o. clonidine over the next 24-48 hrs. They felt she may need pacemaker placement. She had a renal duplex that was normal. Rhythm strips and vital signs were faxed to Dr. Walter and he felt the patient needed a pacemaker. He also wanted to change her medicines: restart the Norvasc, decrease clonidine to twice daily. She again had a brief episode of bradycardia into the 20's and felt dizzy. Her bisoprolol was discontinued. Her family felt it was more beneficial for her to switch cardiac care to Dr. Pavon, as he is local. Cardiology was consulted again for pacemaker placement as patient has sick sinus syndrome. The pacemaker was placed by Dr. Pavon and the patient tolerated the procedure well. Her BP and HR were stable and she was able to be discharged home with a f/u with Dr. Blackwell and Cardiology. Objective Vital signs: Temp Pulse Resp BP Pulse Ox 98.5 F 70 16 123/50 95 10/27/17 08:00 10/27/17 08:00 10/27/17 09:58 10/27/17 08:00 10/27/17 08:00 Narrative: - Constitutional no acute distress - *Routine HEENT Exam Head: Present: normocephalic, atraumatic Eye: Present: EOMI, PERRL ENT: Present: mucous membranes moist - *Routine Neck Exam Present: supple, full ROM - *Routine Respiratory Exam Present: CTA bilaterally - *Routine Cardiovascular Exam Present: RRR - *Routine Abdominal Exam Present: soft, normoactive bowel sounds. Absent: tenderness - *Routine Extremities Exam Absent: edema - *Routine Skin Exam Present: intact - *Routine Neurological Exam Present: alert, oriented X3 DS: Diagnosis - Discharge Diagnosis (1) Malignant hypertension Status: Acute (2) Hyperlipidemia Status: Acute (3) Paroxysmal atrial fibrillation Status: Acute (4) Hyponatremia Status: Acute (5) Hypothyroidism Status: Acute (6) Bradycardia Status: Acute (7) Cardiac dysrhythmia Status: Acute (8) Hypomagnesemia Status: Acute (9) S/P placement
--- NOTE | 2017-11-04 09:47 | P.CONS_ITS ---
History of Present Illness Consult date: 10/20/17 Requesting physician: French Blackwell Consult reason: hypertension Chief complaint: elevated BP Additional Medical History:: 1. Hypertension, treated for at least 10 years 2. History of paroxysmal atrial fibrillation, treated with flecainide and Xarelto per Dr. Walter in [place], [place] 3. Hypothyroidism, on replacement therapy 4. Hyperlipidemia, on statin therapy 5. Family history of early coronary artery disease in a brother and sister in their 40s and 50s, both were smokers. History of present illness: 81-year-old white female admitted from Dr. Blackwell's office for malignant hypertension. Transiently was on IV Nipride but now on p.o. occasions but still with labile blood pressure. Cardiology asked to see patient due to possible drug beat versus blocked PAC noted on telemetry yesterday and elevated blood pressure by multiple medications. Patient does relate at least 10 years of treatment for high blood pressure with recent as needed doses of clonidine due to elevated blood pressure at home. She denies any chest pain, pressure or tightness. She remains very active and denies significant salt intake. She relates being compliant with her medications. [facility] History Medical History: Reports:: Atrial Fibrillation, Hyperlipidemia, Hypertension Denies:: Cancer, Coronary Artery Disease, Cerebrovascular Accident, Diabetes Mellitus Type 1, Diabetes Mellitus Type 2, MRSA Other Medical History: Reports: Anemia, Arthritis, Sinus Problems Other Surgeries: Yes: Cardiac Catheterization, Colonoscopy, EGD Amputation: No - *Social History Educational Level: Attended High School Smoking Status: Former smoker Alcohol Intake: current Alcohol Intake Frequency:: a few times a week Occupational Status: retired Household Members: none - Psychiatric History Expresses thoughts of harming self/others: None Suicide Plan Description: No Plan *Family Hx:: Heart Attack, Hyperlipidemia Meds Home Medications Medication Instructions Recorded Confirmed Type Atorvastatin Calcium [Atorvastatin 10 mg PO DAILY 10/14/17 10/14/17 History 10mg Tab] Calcium Carbonate/Vitamin D3 1 each PO DAILY 10/14/17 10/14/17 History [Calcium 600 + Vit D 400 Softgl] Carvedilol [Carvedilol 12.5mg Tab] 12.5 mg PO BID 10/14/17 10/14/17 History Cefdinir [Omnicef 300mg Capsule] 300 mg PO BID 10/14/17 10/14/17 History Cholecalciferol (Vitamin D3) 1,000 unit PO DAILY 10/14/17 10/14/17 History [Vitamin D3 1,000 Unit Cap] Flecainide Acetate 100 mg PO BID 10/14/17 10/14/17 History Lansoprazole 30 mg PO DAILY 10/14/17 10/14/17 History Lisinopril [Lisinopril 20mg Tab] 20 mg PO BID 10/14/17 10/14/17 History Multivitamin [Multivitamins] 1 each PO DAILY 10/14/17 10/14/17 History [place]-3S/Dha/Epa/Fish Oil [Fish 1 each PO BID 10/14/17 10/14/17 History Oil 1,200 mg Softgel] Rivaroxaban [Xarelto] 20 mg PO DAILY 10/14/17 10/14/17 History cloNIDine HCl [cloNIDine 0.2mg 0.2 mg PO BID 10/14/17 10/15/17 History Tablet] hydrOXYzine HCl [Hydroxyzine HCl] 25 mg PO TID PRN 10/14/17 10/14/17 History hydroCHLOROthiazide [HCTZ 25mg 25 mg PO DAILY 10/14/17 10/14/17 History tab] Allergies Allergy/AdvReac Type Severity Reaction Status Date / Time Penicillins Allergy Intermediate I-RASH Verified 10/14/17 18:18 codeine Allergy Mild NA-NAUSEA/V Verified 10/14/17 18:18 OMITING simvastatin AdvReac Joint Pain Veri
== END 2017-10-27 11:03 | disposition home health service (06) | DRG 243 ==
PROVIDERS: Internal Medicine; Physician Assistant; Admitting Provider Family Medicine; PCP Family Medicine; Visit Provider Family Medicine
PROC: 0JH606Z Insertion of Pacemaker, Dual Chamber into Chest Subcutaneous Tissue and Fascia, Open Approach (ICD-10-PCS; principal; 2017-10-26 11:00)
DX: I48.0 Paroxysmal atrial fibrillation (principal); E87.1 Hypo-osmolality and hyponatremia; I49.5 Sick sinus syndrome; E83.42 Hypomagnesemia; Z45.02 Encounter for adjustment and management of automatic implantable cardiac defibrillator; E03.9 Hypothyroidism, unspecified; I51.7 Cardiomegaly; I10 Essential (primary) hypertension
CPT/HCPCS: 33208; 36415; 70450; 71045; 80048; 80053; 81001; 82962; 83735; 84100; 84443; 85025; 93005; 93306; 93880; 93976; 96374; C1785; C1898

== ENCOUNTER → 2017-11-01 11:48 | Outpatient (CLI) | payer MEDICARE, BC, SELFPAY ==
[2017-11-01 12:37] LABS: Anion Gap 12.2 mEq/L (5-15); Blood Urea Nitrogen 37 mg/dL (7-18); Carbon Dioxide 28 mmol/L (21.0-32.0); Chloride 94 mmol/L (98-107); Creatinine,Serum 1.78 mg/dL (0.55-1.02); Estimated Glomerular Filt Rate 27 ml/min (>60); GFR (African American) 33 ML/MIN (>60); Glucose 121 mg/dL (74-106); Potassium 5.2 mmoL/L (3.5-5.1); Sodium 129 mmol/L (136-145)
== END ==
PROVIDERS: Family Provider Family Medicine; PCP Family Medicine; Visit Provider Physician Assistant
DX: Z95.0 Presence of cardiac pacemaker (principal); E87.1 Hypo-osmolality and hyponatremia; E78.5 Hyperlipidemia, unspecified
CPT/HCPCS: 36415; 80048

== ENCOUNTER → 2017-11-09 09:54 | Outpatient (CLI) | payer MEDICARE, BC, SELFPAY ==
[2017-11-09 10:15] LABS: Anion Gap 9.8 mEq/L (5-15); Blood Urea Nitrogen 20 mg/dL (7-18); Carbon Dioxide 29 mmol/L (21.0-32.0); Chloride 96 mmol/L (98-107); Creatinine,Serum 1.16 mg/dL (0.55-1.02); Estimated Glomerular Filt Rate 45 ml/min (>60); GFR (African American) 54 ML/MIN (>60); Glucose 136 mg/dL (74-106); Potassium 4.8 mmoL/L (3.5-5.1); Sodium 130 mmol/L (136-145)
== END ==
PROVIDERS: Visit Provider Physician Assistant
DX: Z95.0 Presence of cardiac pacemaker (principal); E83.42 Hypomagnesemia; I49.9 Cardiac arrhythmia, unspecified; R00.1 Bradycardia, unspecified; E87.1 Hypo-osmolality and hyponatremia; I48.0 Paroxysmal atrial fibrillation; E78.5 Hyperlipidemia, unspecified; I10 Essential (primary) hypertension; I65.29 Occlusion and stenosis of unspecified carotid artery; I51.9 Heart disease, unspecified
CPT/HCPCS: 36415; 80048

== ENCOUNTER → 2017-11-30 07:27 | Outpatient (CLI) | payer MEDICARE, BC, SELFPAY ==
--- NOTE | 2017-11-30 07:29 | NM_ITS ---
CARDIOLITE SPECT MYOCARDIAL PERFUSION SCAN, REST AND STRESS: EXERCISE STRESS TUALITY [facility] REVIEW QGS EF AND WALL MOTION EVALUATION: QPS - PERFUSION EVALUATION HISTORY: HTN, Pacemaker placed October 2017 DOSE: 10.78 mCi technetium 99m mibi intravenously at rest followed by 30.6 mCi technetium 99m mibi following the intravenous ministration of 0.4 mg of Lexiscan. Resting blood pressure is 157/85. Stress blood pressure 83/41. FINDINGS: Ejection fraction is calculated to be 81%. Stress images reveal large defect in the lateral wall while rest images reveal uniform myocardial activity. Gated images calculated ejection fraction of 81% with normal wall motion IMPRESSION: Reversible ischemia throughout the lateral wall. Normal ejection fraction normal wall motion. High risk abnormal stress test
--- NOTE | 2017-11-30 07:50 | HMH.ITSHM ---
LISINOPRIL HYDROXYZINE CARVEDILOL TRIAMTERENE-HCTZ FLECAINIDE AMLODIPINE LANSOPRAZOLE LEVOTHYROXINE MAGNISIUM
== END ==
PROVIDERS: Family Provider Family Medicine; PCP Family Medicine; Visit Provider Internal Medicine
DX: I48.0 Paroxysmal atrial fibrillation (principal); R94.31 Abnormal electrocardiogram [ECG] [EKG]; R42 Dizziness and giddiness; I65.23 Occlusion and stenosis of bilateral carotid arteries; E78.4 Other hyperlipidemia
CPT/HCPCS: 78452; 93017; A9502; J2785

== ENCOUNTER 2018-01-20 12:59 | Outpatient (RCR) | payer MEDICARE, BC, SELFPAY | END 2018-03-31 15:06 | disposition home or self-care (01) | LOC: PT 12:59 | PROVIDERS: Family Provider Family Medicine; PCP Family Medicine; Visit Provider Internal Medicine | DX: I25.10 Atherosclerotic heart disease of native coronary artery without angina pectoris (principal); I10 Essential (primary) hypertension | CPT/HCPCS: 93798 ==

== ENCOUNTER → 2018-04-05 10:54 | Outpatient (CLI) | payer MEDICARE, BC, SELFPAY ==
[2018-04-05 11:13] LABS: Basophils % 0.5 % (0.1-2.0); Eosinophils # 0.2 K/mm3 (0.0-0.4); Eosinophils % 2.8 % (0.1-12.0); Hematocrit 36.2 % (37.0-47.0); Hemoglobin 11.6 g/dL (12.2-16.2); Lymphocytes # 1.5 K/mm3 (0.7-4.5); Lymphocytes % 21.2 K/mm3 (10-50); Mean Corpuscular HGB Conc 32.1 g/dL (31.8-35.4); Mean Corpuscular Hemoglobin 27.5 pg (27.0-31.2); Mean Corpuscular Volume 85.7 fl (81-99); Mean Platelet Volume 6.3 fl (7.4-10.4); Monocytes # 0.6 K/mm3 (0.1-1.0); Monocytes % 9.1 % (1.7-9.3); Neutrophils # 4.6 K/mm3 (1.8-7.8); Neutrophils % 66.4 % (37.0-80.0); Platelet Count 383 K/mm3 (142-424); Red Blood Count 4.22 M/mm3 (4.20-5.40); Red Cell Distribution Width 12.9 % (11.5-17.5)
[2018-04-05 12:11] LABS: Anion Gap 14.1 mEq/L (5-15); Blood Urea Nitrogen 21 mg/dL (7-18); Calcium 9.2 mg/dL (8.5-10.1); Carbon Dioxide 28 mmol/L (21.0-32.0); Chloride 94 mmol/L (98-107); Creatinine,Serum 1.34 mg/dL (0.55-1.02); Estimated Glomerular Filt Rate 38 ml/min (>60); GFR (African American) 46 ML/MIN (>60); Glucose 111 mg/dL (74-106); Potassium 5.1 mmoL/L (3.5-5.1); Sodium 131 mmol/L (136-145)
== END ==
PROVIDERS: Family Provider Family Medicine; PCP Family Medicine; Visit Provider Internal Medicine
DX: I25.10 Atherosclerotic heart disease of native coronary artery without angina pectoris (principal); R06.09 Other forms of dyspnea
CPT/HCPCS: 36415; 80048; 83880; 85025

== ENCOUNTER → 2018-04-07 11:00 | Outpatient (CLI) | payer MEDICARE, BC, SELFPAY ==
--- NOTE | 2018-04-07 11:03 | CA_ITS ---
PROCEDURE: 2-D M-mode and color Doppler study INDICATIONS FOR THE TEST: Chest pain COPD Heart Murmur Tobacco SmokingEX PalpitationsX Fatigue Syncope Edema HypertensionXDiabetes Mellitus Rheumatic Fever SOBXDOEXObesity HyperlipidemiaX Family History HDX Additional History AF,CAD PPM,ABN EKG PATIENT INFORMATION HEIGHT: 62 WEIGHT:168 GENDER: Female B/P:99/39 2-D/M-MODE INTERPRETATION: 2-D MEASUREMENTS OBSERVED VALUES IN CMS Right Ventricular Dimension (RVDd) 3.2 Interventricular Septum (Thickness)(IVsd) .9 Left Ventricular Internal Dimensions(LVIDd) 5.3 Left Ventricular Posterior Wall (Thickness)(LVPWd) .9 Aortic Root 3.1 Aortic Cusp Separation 1.7 Left Atrial Dimensions (LAD) 4.2 2D 1. Left atrium is mildly enlarged, left ventricle is normal size, visually estimated ejection fraction approximately 40%, there is marked hypokinesis involving mid to distal septum, anteroapical and apical wall. 2. The right atrium and right ventricle are mildly enlarged with normal contractility, there is a pacemaker lead seen in the right atrium and right ventricle. 3. The aortic valve is minimally thickened and fibrosed. 4. The mitral and tricuspid valve leaflets are minimally thickened. 5. The pulmonic valve is poorly visualized. 6. No significant pericardial effusion noted. DOPPLER INTERROGATION: Doppler interrogation of the aortic, mitral and tricuspid valvular presence of moderate mitral , tricuspid regurgitation, and mild aortic insufficiency seen, calculated right ventricular systolic pressure 47 mmHg consistent with moderate pulmonary hypertension. CONCLUSION: 1. Mildly enlarged left atrium, normal left ventricular size, visually estimated ejection fraction of 40% with multiple segmental wall motion abnormality, diastolic parameters are inconclusive. 2. Mild aortic, moderate mitral and tricuspid regurgitation, calculated right ventricular systolic pressure 47 mmHg consistent with moderate pulmonary hypertension. 3. No significant pericardial effusion noted.
== END ==
PROVIDERS: Family Provider Family Medicine; PCP Family Medicine; Visit Provider Internal Medicine
DX: I25.10 Atherosclerotic heart disease of native coronary artery without angina pectoris (principal); R06.09 Other forms of dyspnea; R00.2 Palpitations
CPT/HCPCS: 93306

== ENCOUNTER → 2018-07-04 08:51 | Outpatient (CLI) | payer MEDICARE, BC, SELFPAY ==
--- NOTE | 2018-07-04 08:52 | CA_ITS ---
PROCEDURE: 2-D M-mode and color Doppler study INDICATIONS FOR THE TEST: Chest pain COPD Heart Murmur Tobacco Smoking Palpitations Fatigue Syncope Edema HypertensionXDiabetes Mellitus Rheumatic Fever SOBXDOE Obesity HyperlipidemiaX Family History HD Additional History CAD,CM,AF,PPM PATIENT INFORMATION HEIGHT: 62 WEIGHT:170 GENDER: Female B/P:123/68 2-D/M-MODE INTERPRETATION: 2-D MEASUREMENTS OBSERVED VALUES IN CMS Right Ventricular Dimension (RVDd) 4.1 Interventricular Septum (Thickness)(IVsd) 1.0 Left Ventricular Internal Dimensions(LVIDd) 4.6 Left Ventricular Posterior Wall (Thickness)(LVPWd) 1.0 Aortic Root 3.1 Aortic Cusp Separation 1.4 Left Atrial Dimensions (LAD) 4.6 2D 1. Left atrium is moderately enlarged, left ventricle is normal size, mild concentric left ventricular hypertrophy, visually estimated ejection fraction 45-50% with no regional wall motion abnormality. 2. The right atrium and right ventricle are moderately enlarged with normal contractility, there is a pacemaker in the right atrium and right ventricle. 3. The aortic valve is minimally thickened and fibrosed. 4. The mitral and tricuspid valve leaflets are minimally thickened. 5. The pulmonic valve is poorly visualized. 6. Trivial pericardial effusion noted. DOPPLER INTERROGATION: Doppler interrogation of the aortic, mitral and tricuspid valvular presence of moderate mitral and tricuspid regurgitation, calculated right ventricular systolic pressure 54 mmHg consistent with moderate pulmonary hypertension, diastolic parameters are inconclusive. CONCLUSION: 1. Moderate biatrial enlargement, normal left ventricular size, mild concentric left ventricular hypertrophy, visually estimated ejection fraction of 45-50% with no regional wall motion abnormality. 2. Mildly enlarged right ventricle with normal contractility. 3. Moderate mitral and mild tricuspid regurgitation, calculated right ventricular systolic pressure is 54 millimeters of mercury, consistent with moderate pulmonary hypertension, diastolic parameters are inconclusive.
== END ==
PROVIDERS: PCP Nurse Practitioner; Visit Provider Internal Medicine
DX: E78.5 Hyperlipidemia, unspecified (principal); I10 Essential (primary) hypertension; I25.10 Atherosclerotic heart disease of native coronary artery without angina pectoris; I42.9 Cardiomyopathy, unspecified; I48.0 Paroxysmal atrial fibrillation; I51.9 Heart disease, unspecified; I65.29 Occlusion and stenosis of unspecified carotid artery; R06.00 Dyspnea, unspecified; R94.31 Abnormal electrocardiogram [ECG] [EKG]; Z95.0 Presence of cardiac pacemaker
CPT/HCPCS: 93306

== ENCOUNTER → 2019-06-13 11:37 | Outpatient (CLI) | payer MEDICARE, BC, SELFPAY ==
--- NOTE | 2019-06-13 | CA_ITS ---
APPROVED REPORT Exam: Pharmacologic Technologist: Darlene Dougherty Ht: 5 ft 2 in Wt: 170 lbs BSA: 1.78 m2 HR: 70 bpm BP: 160/82 mmHg Indications: HYPERtension, Shortness of Breath Medical History Medications: Lisinopril,,,,, Levothyroxine,,,,, Furosemide (LASIX),,,,, Flecainide,,,,, Atorvastatin,,,,, Carvedilol,,,,, XaRELTO,,,,, Lansoprazole,,,,, Magnesium,,,,, SpirOnolactone,,,,, Hydroxyzine HCL,,,,, Stress Test Details Test: LEXISCAN HR Resting HR: 70 bpm Max Heart Rate (APMHR): 138 bpm Max HR Achieved: 90 bpm Target HR (85% APMHR): 117 bpm % of APMHR: 65 Recovery HR: 79 bpm BP Resting BP: 160.0/82.0 mmHg Max BP: 160.0/82.0 mmHg Recovery BP: 125.0/65.0 mmHg ECG Clinical Exercise duration: 04:11 min Highest Stage Achieved: Stress ECG Conclusion Resting ECG: Ventricular paced rhythm. Symptoms: Malaise, mild nausea, headache. No chest pain. Arrhythmias/Ectopy: None ST-T Changes: No significant changes. Conclusion: Unremarkable Lexiscan stress. Myoview images reported separately. Electronically signed by : Milo Pavon, 06/14/2019 15:03:13
--- NOTE | 2019-06-13 11:44 | CT_ITS ---
PROCEDURE: CT HEAD/BRAIN WO CON CLINICAL INDICATION: headache Severe headache with hypertension COMPARISON: HEADWO CT head/brain wo con from 10/21/2017 TECHNIQUE: Axial images obtained. All CT scans at the facility use one or more dose reduction, viz: automated exposure control, ma/kV adjustment per patient size (including targeted exams where dose is matched to indication, i.e. head), or iterative reconstruction technique. FINDINGS: No midline shift, mass effect, intracranial hemorrhage, hydrocephalus, or extra-axial fluid collection is evident. There is generalized atrophy with hypoattenuation of the periventricular white matter consistent with microangiopathic changes. The calvarium has an unremarkable appearance. No mastoid effusion. There is mild mucosal thickening of the left maxillary sinus and of the ethmoid sinuses. There is opacification of the right anterior ethmoid air cells. IMPRESSION: 1. No acute intracranial findings. 2. Sinus disease Dictated by: Silverio Bruner MD 06/13/2019 18:15 Electronically signed by Silverio Bruner MD in [place] 06/13/2019 18:15
--- NOTE | 2019-06-13 11:44 | NM_ITS ---
APPROVED REPORT Exam: Nuclear Stress Test Indication: SOB, Syncope, HTN, High cholesterol, Family history, Pacemaker Patient Location: Outpatient Stress Tech: Darlene Dougherty [place] Tech:Dawn Meneses, ARRT, RT (R)(N) Ht: 5 ft 2 in Wt: 170 lbs Bra Size: D HR: 70 bpm BP: 160/82 mmHg BSA: 1.78 m2 BMI: 31.0 History: SOB, Syncope, HTN, High cholesterol, Family history, Pacemaker Procedure: Patient received a 0.4 mg of intravenous Lexiscan, resting heart rate 70 bpm, resting blood pressure 160/82 mmHg, with Lexiscan maximum heart rate achived was 73 bpm which is % of the maximum predicted heart rate and blood pressure was 134/57 mmHg. With Lexiscan, patient denied any complaint of chest pain. Cardiac Stress and Resting SPECT Images: Cardiac Stress and Resting SPECT images were obtained using technetium 99m Myoview 32.5 mCi stress and 10.27 mCi at rest. No fixed or reversible defects are evident The ejection fraction is normal at 74% Conclusion: Normal EF No evidence of ischemic changes Electronically signed by : Silverio Bruner MD 06/14/2019 09:28:14
--- NOTE | 2019-06-13 12:21 | HMH.ITSHM ---
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 []LEVOTHYROXINE LANSOPRAZOLE XARELTO MAG FLECAINIDE CARVEDILOL HYDROXYZINE HCL ATORVASTATIN SPIRONOLACTONE FUROSEMIDE LISINOPRIL
== END ==
PROVIDERS: PCP Family Medicine; Visit Provider Urology
DX: I10 Essential (primary) hypertension; R06.02 Shortness of breath; E03.9 Hypothyroidism, unspecified; E78.5 Hyperlipidemia, unspecified; I25.10 Atherosclerotic heart disease of native coronary artery without angina pectoris; I42.9 Cardiomyopathy, unspecified; I48.0 Paroxysmal atrial fibrillation; I65.29 Occlusion and stenosis of unspecified carotid artery; R53.83 Other fatigue; Z95.810 Presence of automatic (implantable) cardiac defibrillator
CPT/HCPCS: 70450; 78452; 93017; A9502; J2785

== ENCOUNTER → 2019-06-27 15:33 | Outpatient (CLI) | payer MEDICARE, BC, SELFPAY ==
--- NOTE | 2019-06-27 15:40 | XR_ITS ---
PROCEDURE: XR SHOULDER RT MIN 2V CLINICAL INDICATION: RT SHOULDER JOINT DISORDER Right shoulder pain with limited range of motion COMPARISON: [id number] VIEWS from 01/15/2015 FINDINGS: There are minimal osteoarthritic changes of the glenohumeral joint with mild subacromial stenosis. Small cystic areas present in humeral head consistent with a small cortical defect. The IMPRESSION: Minimal osteoarthritic change glenohumeral joint Dictated by: Silverio Bruner MD 06/27/2019 16:00 Electronically signed by Silverio Bruner MD in [place] 06/27/2019 16:00
== END ==
PROVIDERS: PCP Family Medicine; Visit Provider Family Medicine
DX: M25.511 Pain in right shoulder (principal)
CPT/HCPCS: 73030

== ENCOUNTER 2019-07-26 15:00 | Outpatient (RCR) | payer MEDICARE, BC, SELFPAY ==
--- NOTE | 2019-07-04 09:50 | HMH.OTOPEV ---
OT Inpatient Evaluation Rehab OT Outpatient Eval Start: 07/04/19 09:15 Freq: Status: Active Protocol: Document 07/03/19 02:30 HORACIO (Rec: 07/04/19 09:49 [id number] Electronically Signed By Noah Urena OT 07/03/19 02:30 Outpatient Therapy Subjective History Subjective History Pt is a 83 year old female who reports to therapy for initial evaluation to R shoulder. Pt explains her right shoulder began hurting her ~3 weeks ago. Pt does not recall a specific injury causing the pain; she has not changed anything about her normal daily routines. Pt did have an xray which showed some arthritis. Pt informed therapist she feels her shoulder catches . Pt does demosntrate with decreased AROM and strength at right shoulder. Pt will continue to be seen twice a week in order to address all deficits. Chief Complaint Pain,Stiff Symptom Type Ache,Throb,Sharp,Dull,Stabbing ,Shooting Symptoms Relieved By Nothing Symptoms Aggravated By Physical Activity,Twisting, Lifting Prior Functional Limitations None Current Functional Limitations Reaching,Lifting,Housework, Sleeping,Recreation Activity Symptom Description Constant but Variable Level of pain today (0-10) 4 Pain scale - at its best (0-10) 2 Pain scale - at its worst (0-10) 6 Shoulder/Elbow Eval Shoulder Objective Measurements Shoulder ROM Right Shoulder ROM Limitations Pain Shoulder Abduction Active Range of 95 degrees Motion (degrees) Shoulder Flexion Active Range of Motion 110 degrees (degrees) Query Text: Shoulder External Rotation Active Range 85 degrees of Motion (degrees) Shoulder Internal Rotation Active Range 65 degrees of Motion (degrees) pain with active ROM shoulder exam right standard pain with passive ROM shoulder exam right standard decreased ROM shoulder exam standard right Shoulder MMT Shoulder Abduction Strength Grade 3 Fair Shoulder Extension Strength Grade 3 Fair Shoulder Flexion Strength Grade 3 Fair Shoulder External Rotation Strength 3 Fair Grade
== END 2019-07-26 15:05 | disposition home or self-care (01) ==
LOC: OT 15:00
PROVIDERS: PCP Family Medicine; Visit Provider Family Medicine
DX: M25.511 Pain in right shoulder (principal)
CPT/HCPCS: 97010; 97110; 97140; 97166

== ENCOUNTER 2019-08-02 16:00 | Outpatient (RCR) | payer MEDICARE, BC, SELFPAY ==
--- NOTE | 2019-06-26 14:01 | HMH.PTOPEV ---
PT Outpatient Evaluation Rehab PT Outpatient Evaluation Start: 06/26/19 12:58 Freq: Status: Active Protocol: Document 06/26/19 13:50 PHORNE (Rec: 06/26/19 14:01 PHORNE [id number]) Electronically Signed By Tyler Dubois, PT 06/26/19 13:50 Outpatient Therapy Subjective History Subjective History Pt is 83 yowf who presents with c/o decreased balance while walking, worse x 1-2 yrs . She reports only feeling this way intermittantly, but it is worse when she is fatigued. She reports no c/o dizziness or lightheadedness. SHe also reports some decrease in endurance overall due to inactivity after heart cath and pacemaker placement. She has PMH of HTN, pacemaker, cardiac cath. She also reports being hard of hearing and uses hearing aids. Chief Complaint Weakness Symptoms Relieved By Rest/Positioning Symptoms Aggravated By Walking Prior Functional Limitations None Current Functional Limitations Walking,Balance Symptom Description Intermittent,Activity Dependent Level of pain today (0-10) 0 Pain scale - at its worst (0-10) 0 Balance Eval Gait/Posture Asssessment General Gait Observation Wide Based Gait Ankle/Foot Observation in Gait Swing Decreased Foot Clearance Body Alignment Posture Rigid Oculomotor Gaze Oculomotor Gaze Nml: Vergence Smooth Pursuit Saccades Dynamic Gait Index Test Protocol Gait Level Surface Normal Query Text: Instructions: Walk at your normal speed from here to the next darell (20'). Grading: Darell the lowest category that applies. Change in Gait Speed Normal Query Text: Instructions: Begin walking at your normal pace (for 5'), when I tell you go , walk as fast as you can (for 5'). When I tell you slow , walk as slowly as you can (for 5'). Grading: Darell the lowest category that applies. Gait with Horizontal Head Turns Moderate Impairment Query Text: Instructions: Begin walking at your normal pace. When I tell you to look right , keep walking straight, but turn you head to the right. Keep looking to the right unit I tell you look left , then keep walking straight and turn your head to the left. Keep
== END 2019-08-02 16:05 | disposition home or self-care (01) ==
LOC: PT 16:00
PROVIDERS: PCP Family Medicine; Visit Provider Family Medicine
DX: R26.89 Other abnormalities of gait and mobility (principal)
CPT/HCPCS: 97110; 97163

== ENCOUNTER → 2021-02-10 12:40 | Outpatient (CLI) | payer MEDICARE, BC, SELFPAY ==
--- NOTE | 2021-02-10 12:45 | XR_ITS ---
PROCEDURE: XR CHEST 2V CLINICAL HISTORY: A. fib, SOA COMPARISON: CR CXR1VP XR chest portable from 10/14/2017 CR CXR1VP XR chest portable from 10/26/2017 CR CXR1VP XR chest portable from 04/15/2018 FINDINGS: Biventricular pacemaker with right atrial lead is present from left subclavian approach. Borderline cardiomegaly without failure. Mild left apical pleural thickening. The lungs are clear without infiltrates, suspicious nodules, or pleural effusions. There is mild kyphosis of the thoracic spine with minimal wedge contour T6-T7 T8 and T9. This may be chronic. IMPRESSION: No acute findings. Dictated by: Silverio Bruner MD 02/10/2021 13:33 Silverio Bruner MD in [place] 02/10/2021 13:33
== END ==
PROVIDERS: PCP Family Medicine; Visit Provider Physician Assistant
DX: I48.0 Paroxysmal atrial fibrillation (principal); R06.02 Shortness of breath; Z95.0 Presence of cardiac pacemaker
CPT/HCPCS: 71046

== ENCOUNTER → 2021-10-13 11:52 | Outpatient (CLI) | payer MEDICARE, BC, SELFPAY ==
[2021-10-13 12:20] LABS: Basophils % 0.6 % (0.1-2.0); Eosinophils # 0.5 K/mm3 (0.0-0.4); Eosinophils % 6.5 % (0.1-12.0); Lymphocytes # 1.7 K/mm3 (0.7-4.5); Lymphocytes % 24.3 % (10-50); Mean Corpuscular HGB Conc 31.9 g/dL (31.8-35.4); Mean Corpuscular Hemoglobin 29.3 pg (27.0-31.2); Mean Corpuscular Volume 91.9 fl (81-99); Mean Platelet Volume 6.9 fl (7.4-10.4); Monocytes # 0.4 K/mm3 (0.1-1.0); Monocytes % 6.2 % (1.7-9.3); Neutrophils # 4.3 K/mm3 (1.8-7.8); Neutrophils % 62.4 % (37.0-80.0); Platelet Count 315 K/mm3 (142-424); Red Blood Count 4.78 M/mm3 (4.20-5.40); Red Cell Distribution Width 12.3 % (11.5-17.5); White Blood Count 6.9 K/mm3 (4.8-10.8)
[2021-10-13 13:09] LABS: Chloride 95 mmol/L (98-107)
[2021-10-13 13:10] LABS: Sodium 131 mmol/L (136-145)
[2021-10-13 13:12] LABS: Alanine Aminotransferase 26 U/L (12-78); Alkaline Phosphatase 86 U/L (38-126); Aspartate Amino Transferase 46 U/L (14-36); Bilirubin,Direct 0.3 mg/dl (0.0-0.4); Bilirubin,Indirect 0.7 mg/dL (0.0-0.9); Bilirubin,Unconjugated 0.7 mg/dL (0.0-1.1); Blood Urea Nitrogen 22 mg/dl (7-17); Carbon Dioxide 30 mmol/L (22.0-30.0); Cholesterol 189 mg/dl (140-200); Estimated Glomerular Filt Rate 43 ml/min (>60); GFR (African American) 52 ML/MIN (>60); Triglycerides 117 mg/dl (30-150); VLDL Cholesterol 23 mg/dL (0-40)
[2021-10-13 13:13] LABS: Albumin Level 4.7 g/dl (3.5-5.0); Calcium 9.2 mg/dl (8.4-10.2); Chol/HDL Ratio 3.1 (1-3.5); Glucose 104 mg/dl (74-100); HDL Cholesterol 61 mg/dl (40-60); Magnesium 1.7 mg/dl (1.6-2.3); Total Protein,Serum 7.6 g/dl (6.3-8.2)
[2021-10-13 13:24] LABS: Direct LDL Cholesterol 82.24 mg/dL (100-129)
[2021-10-13 13:31] LABS: Free T4 (Free Thyroxine) 1.58 ng/dl (0.78-2.19)
== END ==
PROVIDERS: Visit Provider Physician Assistant
DX: E78.2 Mixed hyperlipidemia (principal); I25.10 Atherosclerotic heart disease of native coronary artery without angina pectoris; I48.0 Paroxysmal atrial fibrillation; I65.23 Occlusion and stenosis of bilateral carotid arteries; Z95.0 Presence of cardiac pacemaker
CPT/HCPCS: 36415; 80048; 80061; 80076; 83735; 84439; 84443; 85025

== ENCOUNTER → 2022-01-06 13:25 | Outpatient (POV) | payer MEDICARE, BC, SELFPAY | PROVIDERS: Visit Provider Dermatology | DX: Z00.00 Encounter for general adult medical examination without abnormal findings (principal) ==

== ENCOUNTER → 2022-06-16 12:55 | Outpatient (POV) | payer MEDICARE, BC, SELFPAY | PROVIDERS: Visit Provider Dermatology | DX: Z00.00 Encounter for general adult medical examination without abnormal findings (principal) ==

== ENCOUNTER → 2022-09-08 15:30 | Outpatient (POV) | payer MEDICARE, BC, SELFPAY | PROVIDERS: Visit Provider Dermatology | DX: Z00.00 Encounter for general adult medical examination without abnormal findings (principal) ==

== ENCOUNTER → 2023-03-19 08:49 | Outpatient (CLI) | payer MEDICARE, BC, SELFPAY ==
[2023-03-19 09:28] LABS: Basophils % 0.6 % (0.1-2.0); Eosinophils # 0.2 K/mm3 (0.0-0.4); Eosinophils % 2.4 % (0.1-12.0); Hematocrit 39.1 % (37.0-47.0); Hemoglobin 12.4 g/dL (12.2-16.2); Lymphocytes # 1.5 K/mm3 (0.7-4.5); Lymphocytes % 22.1 % (10-50); Mean Corpuscular HGB Conc 31.6 g/dL (31.8-35.4); Mean Corpuscular Hemoglobin 28.4 pg (27.0-31.2); Mean Corpuscular Volume 89.9 fl (81-99); Mean Platelet Volume 7.6 fl (7.4-10.4); Monocytes # 0.6 K/mm3 (0.1-1.0); Neutrophils # 4.5 K/mm3 (1.8-7.8); Neutrophils % 65.9 % (37.0-80.0); Platelet Count 272 K/mm3 (142-424); Red Blood Count 4.35 M/mm3 (4.20-5.40); Red Cell Distribution Width 12.1 % (11.5-17.5); White Blood Count 6.9 K/mm3 (4.8-10.8)
[2023-03-19 10:17] LABS: Alanine Aminotransferase 23 U/L (12-78); Albumin Level 4.2 g/dl (3.5-5.0); Alkaline Phosphatase 78 U/L (38-126); Anion Gap 10.9 mEq/L (5-15); Aspartate Amino Transferase 34 U/L (14-36); Bilirubin,Indirect 0.9 mg/dL (0.0-0.9); Bilirubin,Total 0.9 mg/dl (0.2-1.3); Bilirubin,Unconjugated 0.9 mg/dL (0.0-1.1); Blood Urea Nitrogen 30 mg/dl (7-17); Calcium 9.4 mg/dl (8.4-10.2); Carbon Dioxide 29 mmol/L (22.0-30.0); Chloride 97 mmol/L (98-107); Chol/HDL Ratio 3.2 (1-3.5); Cholesterol 184 mg/dl (140-200); Estimated Glomerular Filt Rate 28 ml/min (>60); Free T4 (Free Thyroxine) 1.57 ng/dl (0.78-2.19); GFR (African American) 34 ML/MIN (>60); Glucose 104 mg/dl (74-100); HDL Cholesterol 58 mg/dl (40-60); Magnesium 1.9 mg/dl (1.6-2.3); Potassium 4.9 mmoL/L (3.5-5.1); Sodium 132 mmol/L (136-145); Total Protein,Serum 6.8 g/dl (6.3-8.2); Triglycerides 145 mg/dl (30-150); VLDL Cholesterol 29 mg/dL (0-40)
[2023-03-19 10:28] LABS: Direct LDL Cholesterol 77.01 mg/dL (100-129)
[2023-03-19 10:48] LABS: Thyroid Stimulating Hormone 4.13 uIU/mL (0.465-4.68)
== END ==
PROVIDERS: PCP Family Medicine; Visit Provider Physician Assistant
DX: E78.5 Hyperlipidemia, unspecified (principal); I10 Essential (primary) hypertension; I25.10 Atherosclerotic heart disease of native coronary artery without angina pectoris; I48.0 Paroxysmal atrial fibrillation; Z95.0 Presence of cardiac pacemaker; I42.8 Other cardiomyopathies; Z79.899 Other long term (current) drug therapy
CPT/HCPCS: 36415; 80048; 80061; 80076; 83735; 84439; 84443; 85025

== ENCOUNTER 2023-11-29 13:59 | Outpatient (CLI) | payer MEDICARE, BC, SELFPAY ==
--- NOTE | 2023-11-29 14:07 | XR_ITS ---
FINAL REPORT CLINICAL HISTORY: PAIN OF LT KNEE COMPARISON: None FINDINGS: Three views of the left knee reveal no evidence of fracture or dislocation. The bony alignment is normal. Mild degenerative changes present. There is no evidence of joint effusion. No localized soft tissue abnormality is seen. IMPRESSION: No acute abnormality identified. Mild degenerative change. Reviewed, Interpreted and Dictated by Daryl Mac III, MD Transcribed by Monet Hammond Authenticated and [facility]
== END 2023-11-29 23:59 ==
LOC: RAD 14:00
PROVIDERS: PCP Family Medicine; Visit Provider Family Medicine
DX: M17.12 Unilateral primary osteoarthritis, left knee (principal)
CPT/HCPCS: 73562

== ENCOUNTER 2024-04-13 17:00 | Outpatient (RCR) | payer MEDICARE, BC, SELFPAY | END 2024-04-13 17:05 | disposition home or self-care (01) | LOC: PT 17:00 | PROVIDERS: Visit Provider Physician Assistant Surgical | DX: M25.562 Pain in left knee (principal) | CPT/HCPCS: 97035; 97110; 97140; 97163; 97164; 97530 ==

== ENCOUNTER 2024-06-07 07:52 | Outpatient (CLI) | payer MEDICARE, BC, SELFPAY ==
[2024-06-07 08:35] LABS: Basophils # 0.1 K/mm3 (0-0.2); Basophils % 0.8 % (0.1-2.0); Eosinophils # 0.1 K/mm3 (0.0-0.4); Eosinophils % 1.7 % (0.1-12.0); Hematocrit 37.5 % (37.0-47.0); Hemoglobin 12.5 g/dL (12.2-16.2); Lymphocytes # 1.8 K/mm3 (0.7-4.5); Mean Corpuscular HGB Conc 33.3 g/dL (31.8-35.4); Mean Corpuscular Hemoglobin 29.9 pg (27.0-31.2); Mean Corpuscular Volume 89.6 fl (81-99); Mean Platelet Volume 6.7 fl (7.4-10.4); Monocytes # 0.6 K/mm3 (0.1-1.0); Monocytes % 9.7 % (1.7-9.3); Neutrophils # 3.6 K/mm3 (1.8-7.8); Neutrophils % 58.9 % (37.0-80.0); Platelet Count 313 K/mm3 (142-424); Red Blood Count 4.19 M/mm3 (4.20-5.40); Red Cell Distribution Width 13.2 % (11.5-17.5); White Blood Count 6.1 K/mm3 (4.8-10.8)
[2024-06-07 08:54] LABS: Albumin Level 4.4 g/dl (3.5-5.0); Chloride 96 mmol/L (98-107); Sodium 132 mmol/L (136-145)
[2024-06-07 08:55] LABS: Potassium 4.4 mmoL/L (3.5-5.1)
[2024-06-07 08:57] LABS: Alanine Aminotransferase 23 U/L (12-78); Alkaline Phosphatase 81 U/L (38-126); Anion Gap 12.4 mEq/L (5-15); Aspartate Amino Transferase 33 U/L (14-36); Bilirubin,Direct 0.2 mg/dl (0.0-0.4); Bilirubin,Indirect 0.8 mg/dL (0.0-0.9); Bilirubin,Unconjugated 0.8 mg/dL (0.0-1.1); Blood Urea Nitrogen 27 mg/dl (7-17); Calcium 9.9 mg/dl (8.4-10.2); Carbon Dioxide 28 mmol/L (22.0-30.0); Cholesterol 196 mg/dl (140-200); Estimated Glomerular Filt Rate 33 ml/min (>60); GFR (African American) 40 ML/MIN (>60); Glucose 136 mg/dl (74-100); Total Protein,Serum 7.2 g/dl (6.3-8.2); Triglycerides 192 mg/dl (30-150); VLDL Cholesterol 38 mg/dL (0-40)
[2024-06-07 08:58] LABS: Chol/HDL Ratio 3.7 (1-3.5); HDL Cholesterol 53 mg/dl (40-60); Magnesium 1.7 mg/dl (1.6-2.3)
[2024-06-07 09:09] LABS: Direct LDL Cholesterol 81.89 mg/dL (100-129)
[2024-06-07 09:15] LABS: Free T4 (Free Thyroxine) 1.57 ng/dl (0.78-2.19)
[2024-06-07 09:28] LABS: Thyroid Stimulating Hormone 4.17 uIU/mL (0.465-4.68)
== END 2024-06-07 23:59 | disposition home or self-care (01) ==
LOC: LAB 07:54
PROVIDERS: PCP Family Medicine; Visit Provider Physician Assistant
DX: I10 Essential (primary) hypertension (principal); I48.91 Unspecified atrial fibrillation; Z95.0 Presence of cardiac pacemaker; I42.9 Cardiomyopathy, unspecified; I25.10 Atherosclerotic heart disease of native coronary artery without angina pectoris; I51.9 Heart disease, unspecified
CPT/HCPCS: 36415; 80048; 80061; 80076; 83735; 84439; 84443; 85025

== ENCOUNTER 2024-08-01 16:00 | Outpatient (RCR) | payer MEDICARE, BC, SELFPAY ==
--- NOTE | 2024-04-25 18:18 | HMH.PTOPEV ---
PT Outpatient Evaluation Rehab PT Outpatient Evaluation Start: 04/25/24 17:04 Freq: Status: Active Protocol: Document 04/25/24 17:04 JULIA (Rec: 04/25/24 18:16 JULIA [id number]) E-signed By Priyanka Medina, PT Outpatient Therapy Subjective History Subjective History Pt is an 88 y/o female who presents to PT for balance training. Pt reports she feels nervous about falling when she walks in open spaces and on uneven terrain. Pt denies use of an AD or recent falls. Pt reports she finds herself using furniture or her daughters to steady herself when walking. Pt reports she tries to walk straight but is unable, denies dizziness. Pt also reports difficulty traversing stairs or curbs without UE support. Pt states she has to hold onto things while turning especially in the shower or bathroom to steady herself as well. Pt with other complaints of generalized LE weakness and decreased endurance. Medical History: Hypertension, PACEMAKER, [place] [employer] Balance: Tandem stance firm- 12 with lateral LOB requiring PT assist to correct 5x sit to stand- 17 without UE support TU New diagnosis of cancer in past 12 No months? Chief Complaint Weakness,Decreased Coordination Current Functional Limitations Walking,Stairs,Balance Hip/Knee Eval MMT bilateral Hip Flexion Strength Grade 4- Good- Hip Abduction Strength Grade 4- Good- Hip Adduction Strength Grade 4- Good- Hip Extension Strength Grade 4- Good- Knee Extension Strength Grade 4 Good Knee Flexion Strength Grade 4 Good Balance Eval Subjective Hx of Complaint Comment balance deficits, LE weakness and fear of falling Chief Complaint vertigo No Did you feel dizzy, unsteady or faint? No Current Functional Limitations Comment fear of falling & difficulty walking in open spaces & on uneven terrain Hx of Falls Hx Falls No Gait/Posture Asssessment General Gait Observation Wide Based Gait Assistive Devices None / NA Level of Transfer Assist Independent Timed Up and Go Test 1. Is the Timed Up and Go test result > yes or = to 12 seconds? [place] Feet Together/Eyes open/Stable Surface pass Feet Together/Eyes Closed/Stable Surface pass Feet Together/Eyes open/Unstable Surface fail Feet Together/Eyes Closed/Unstable fail Surface Outpatient Therapy Assessment Impairments Problems/Impairmments Impaired Strength,Impaired Endurance,Impaired Transfers, Impaired Gait Pattern,Impaired Walking,Impaired Shower/ Bathing,Impaired Stair Climbing,Impaired Incline Stepping,Impaired Stepping on Uneven Surface,Impaired Recreational Activities, Impaired Balance,Impaired Self Care/Self Management Prognosis Rehab Potential Good Clinical Impression Consistent with Diagnosis Yes Short Term Goals Number of Weeks 3 Improve Transfers Yes: 5x sit to stand 12 or less to decrease fall risk Decrease TUG Time Yes: 15 or less to decrease fall risk Improve Self Care/Self Management Yes Patient to be Ind w/ HEP Yes Hospice Care Transitions Coordinator Goals Number of Weeks 6 Increase Strength Yes: Improve LE strength to 4+ /5 grossly to assist with function Improve Gait Pattern without Assistive Yes: proper gait mechanics to Device decrease fall risk Improve Ability to Climb Stairs Yes: 2-3 steps without UE support without LOB to assist with home navigation Improve Balance Yes: tandem stance firm surfce EO 30 without LOB to decrease fall risk Decrease TUG Time Yes: 12 or less to decrease fall risk Outpatient Therapy Plan of Care Treatment Plan May Include Therapeutic Exercise Including Home Yes Exercise Program Manual Therapy Techniques Yes Neuromuscular Re-education Yes Therapeutic Activities to Return to Yes Previous Functional/Work Level Gait Training Yes ADL/Self Care Education Yes Group Therapy for Medicare Yes Eval/Re-Eval Yes Frequency Times per week 2 Duration Number of Weeks 4-6 Addendums This patient is a candidate for social No or vocational rehab? Patient/Guardian verbally acknowledges Yes understanding of treatment program and consents to further treatment? Patient/Guardian verbally acknowledges Yes understanding of diagnosis, prognosis and goals for treatment? Eval Complexity PT Charges 34849 - Low Complexity Shoulder/Elbow Eval Shoulder Objective Measurements Elbow Objective Measurements PHYSICIAN CERTIFICATION: I certify the specified therapy services for Velvet Iverson are required, authorized, and reviewed every 30 days.
--- NOTE | 2024-05-30 17:52 | HMH.RHREAS ---
Rehab Reassessment Rehab OP Re-assessment Start: 04/25/24 17:04 Freq: Status: Active Protocol: Document 05/30/24 17:00 JULIA (Rec: 05/30/24 17:52 JULIA [id number]) E-signed By Priyanka Medina PT Rehab Re-assessment Subjective Subjective Pt reports she has not attended PT for 21 days due to having Covid. Pt also reports non-compliance with HEP due to not feeling well. Pt states she feels better now. Pt reports overall she feels like her balance is getting better . Objective Objective Notes TU without AD 5x sit to stand: 15 without UE support Assessment Assessment Notes Pt has attended 4 PT sessions consisting of aerobic exercise , functional strengthening and balance/proprioception training. Pt was unable to attend PT in 3 weeks due to illness; however, still demonstrated improved TUG and 5x sit to stand times this date compared to the initial evaluation. Overall, the pt would continue to benefit from skilled PT to further improve functional strength and balance to improve overall QOL and decrease fall risk. Patient goals met ST/4 Goals Not Met 5x sit to stand, HEP compliance Revised Goals n/a Plan Plan Continue initial POC Frequency of Therapy 2x/week Duration of therapy 4 more weeks Time and Billing Re-Eval Time 10 Re-Eval Billing Units 1 PHYSICIAN CERTIFICATION: I certify the specified therapy services for Velvet Iverson are required, authorized, and reviewed every 30 days.
--- NOTE | 2024-06-29 18:10 | HMH.RHREAS ---
Rehab Reassessment Rehab OP Re-assessment Start: 04/25/24 17:04 Freq: Status: Active Protocol: Document 06/29/24 16:51 RUSTYJANNETTE (Rec: 06/29/24 18:09 JULIA [id number]) E-signed By Priyanka Medina PT Rehab Re-assessment Subjective Subjective Pt reports she had an infection in her mouth which is why she missed her last appointment. Pt reports she was prescribed antibiotics and feels better today. Pt reports overall her legs still feel weak at times although her balance feels improved. Pt states she feels like she is walking better but continues to have difficulty and decreased confidence with stepping over or onto surface without upper extremity support. Pt reports she is non -compliant with her HEP but is going to start doing them because she thinks it will improve her strength further. Objective Objective Notes Gait: Improved stride length and more narrow VIOLETTA with less lateral sway BLE MMT: 4/5 grossly TU without AD 5x sit to stand: 15 without UE support, report of L knee pain during Balance: tandem stance x30 firm surface EO without LOB Assessment Assessment Notes Pt has attended 13 PT sessions consisting of aerobic exercise, functional strengthening and balance/ proprioception training. Pt has been sick with an infection and reported feeling weak this date without change noted in functional outcome measures such as 5x sit to stand and TUG compared to the previous reassessment. Pt did however demonstrate improved gait mechanics and tandem stance balance this date. Overall, the pt would continue to benefit from skilled PT to further improve functional strength and balance to improve overall QOL and decrease fall risk. Patient goals met ST/4 Goals Not Met 5x sit to stand, LTG Revised Goals n/a Plan Plan Continue initial POC Frequency of Therapy 2x/week Duration of therapy 4 more weeks Time and Billing Re-Eval Time 12 Re-Eval Billing Units 0 Charge for PT reassessment? No Charge for OT reassessment? No PHYSICIAN CERTIFICATION: I certify the specified therapy services for Velvet Iverson are required, authorized, and reviewed every 30 days.
== END 2024-08-01 23:59 | disposition home or self-care (01) ==
LOC: PT 16:00
PROVIDERS: Visit Provider Family Medicine
DX: R26.89 Other abnormalities of gait and mobility (principal)
CPT/HCPCS: 97112; 97163; 97164; 97530

== ENCOUNTER 2025-05-31 13:04 | Outpatient (CLI) | payer MEDICARE, BC, SELFPAY ==
--- NOTE | 2025-05-31 13:11 | XR_ITS ---
FINAL REPORT CLINICAL HISTORY: Left Knee Pain COMPARISON: 11/29/2023 FINDINGS: LEFT KNEE Three views demonstrate no acute fracture or dislocation. There is severe lateral compartment degenerative change. No acute soft tissue abnormality is seen. IMPRESSION: Degenerative change without acute bony abnormality. Reviewed, Interpreted and Dictated by Denzel Perez MD Transcribed by Mayi Perrin Authenticated and . [facility]
== END 2025-05-31 23:59 | disposition home or self-care (01) ==
LOC: RAD 13:07
PROVIDERS: PCP Family Medicine; Visit Provider Physician Assistant Surgical
DX: M17.12 Unilateral primary osteoarthritis, left knee (principal)
CPT/HCPCS: 73562